=== PATIENT | male | born 1965 | race Caucasian/White ===

== ENCOUNTER 2016-07-17 20:01 | Emergency (ER) | payer OTHER ==
[2016-07-17 20:04] VITALS: BP 134/76
--- NOTE | 2016-07-17 20:54 | RAD ---
INDICATION: Right ankle injury. TECHNIQUE: 3 views of the right ankle were obtained. FINDINGS: Soft tissue swelling is noted along the anterolateral aspect of the ankle. No fracture is seen. Joint spaces appear maintained. IMPRESSION: SOFT TISSUE SWELLING, NO FRACTURE IS SEEN.
--- NOTE | 2016-07-17 21:01 | ED ---
Lower Extremity - HPI Summary HPI Summary: 50M presents with right ankle injury. He states he was shoveling on a hill when he twisted his ankle. He has pain over the lateral aspect of his ankle with some edema. He denies any numbness or tingling. He denies any previous injury to the area. He was able to ambulate afterwards. - History of Current Complaint Chief Complaint: EDExtremityLower Stated Complaint: ANKLE INJURY Time Seen by Provider: 07/17/16 20:14 Pain Intensity: 9 - Allergies/Home Medications Allergies/Adverse Reactions: Allergies Allergy/AdvReac Type Severity Reaction Status Date / Time Shellfish Allergy Allergy Severe VIOLENTLY Verified 07/17/16 20:02 ILL Bee Venom Allergy Anaphylatic Verified 07/17/16 20:02 Shock PMH/Surg Hx/FS Hx/Imm Hx Endocrine/Hematology History: Denies: Hx Diabetes, Hx Thyroid Disease Cardiovascular History: Reports: Hx Hypercholesterolemia, Hx Hypertension Denies: Hx Coronary Artery Disease, Hx Myocardial Infarction, Hx Valvular Heart Disease Respiratory History: Reports: Hx Asthma, Hx Sleep Apnea - evaluation for 04/2013 , Other Respiratory Problems/Disorders - current smoker Denies: Hx Chronic Obstructive Pulmonary Disease (COPD) GI History: Denies: Hx Ulcer Musculoskeletal History: Reports: Other Musculoskeletal History - recent onset generalized muscle pain Psychiatric History: Reports: Hx Anxiety, Hx Depression Denies: Hx of Violent Episodes Against Others - Surgical History Surgery Procedure, Year, and Place: APPENDECTOMY - Immunization History Date of Tetanus Vaccine: in last couple years Infectious Disease History: No Infectious Disease History: Denies: Hx Hepatitis, Hx Human Immunodeficiency Virus (HIV), Traveled Outside the [place] in Last 30 Days - Family History Known Family History: Positive: None, Hypertension Family History: R & n/C - Social History Alcohol Use: Occasionally Substance Use Type: Reports: None Hx Tobacco Use: Yes Smoking Status (MU): Heavy Every Day Tobacco Smoker Type: Cigarettes Amount Used/How Often: 1ppd Review of Systems Negative: Fever Negative: Chest Pain Negative: Shortness Of Breath Positive: Myalgia - right ankle pain All Other Systems Reviewed And Are Negative: Yes Physical Exam Triage Information Reviewed: Yes Vital Signs On Initial Exam: Initial Vitals Temp Pulse Resp BP Pulse Ox 97.5 F 80 18 134/76 98 07/17/16 20:02 07/17/16 20:02 07/17/16 20:02 07/17/16 20:02 07/17/16 20:02 Vital Signs Reviewed: Yes Appearance: Positive: Well-Appearing Skin: Positive: Warm, Dry Head/Face: Positive: Normal Head/Face Inspection Eyes: Positive: Normal, Conjunctiva Clear Respiratory/Lung Sounds: Positive: Clear to Auscultation, Breath Sounds Present Cardiovascular: Positive: Normal, RRR Musculoskeletal: Positive: Other - tenderness over lateral aspect of right ankle , good pulses, capillary refill < 2secs, Diagnostics - Vital Signs Vital Signs Temp Pulse Resp BP Pulse Ox 07/17/16 20:02 97.5 F 80 18 134/76 98 - Laboratory Lab Statement: Any lab studies that have been ordered have been reviewed, and results considered in the medical decision making process. - Radiology ankle Xray Interpretation: No Acute Changes - IMPRESSION: SOFT TISSUE SWELLING, NO FRACTURE IS SEEN. Radiology Interpretation Completed By: Radiologist Lower Extremity Course/Dx - Course Course Of Treatment: 50M presents with right ankle pain s/p twisting his ankle today. was able to ambulate. on exam has tender over lateral aspect of ankle. xray show no fx but some soft tissue swelling. will treat as sprain, placed robby on area. patient did not want crutches. patient understands and agrees with plan - Diagnoses Differential Diagnosis/HQI/PQRI: Positive: Fracture (Closed), Sprain, Strain Provider Diagnoses: Right ankle pain Discharge - Discharge Plan Condition: Good Disposition: HOME Patient Education Materials: Ankle Sprain (ED) Referrals: Mis SOUSA,Cely Parker [Primary Care Provider] - Additional Instructions: Stay off ankle as possible as possible Ice, elevate, keep in ROBBY Ibuprofen every 6 hours for pain Follow up with primary if no improvement Return to ED if develop any numbness or tingling or any new or worsening symptoms
== END 2016-07-17 21:17 | disposition home or self-care (01) ==
LOC: ED 20:01
DX: M25.571 Pain in right ankle and joints of right foot (principal); F17.210 Nicotine dependence, cigarettes, uncomplicated
CPT/HCPCS: 99282

== ENCOUNTER 2016-08-09 05:23 | Emergency (ER) | payer OTHER ==
[2016-08-09] MEDS ORDERED: Ibuprofen TAB* 600 MG PO ONE (06:10)
[2016-08-09] MEDS ORDERED: Ibuprofen TAB* 600 MG ONE (06:12)
[2016-08-09 08:12] VITALS: BP 132/79
--- NOTE | 2016-08-09 08:13 | RAD ---
Indication: Left ankle pain. 3 views of left ankle demonstrates no fracture. Fragmentation of the distal fibula is noted. This is likely due to accessory ossicle or sequela from prior injury. There is a fracture of the base of the fifth metatarsal that is nondisplaced. IMPRESSION: Soft tissue swelling laterally with fragmentation of the distal fibula likely due to old injury. There is suggestion of a nondisplaced fracture of the base of the fifth metatarsal.
--- NOTE | 2016-08-09 08:14 | RAD ---
Indication: Foot pain. 3 views of the foot demonstrates fracture at the base of the fifth metatarsal. No significant displacement is noted. Degenerative changes of the cuneiforms metatarsal joint is noted. IMPRESSION: Nondisplaced fracture base of the fifth metatarsal.
--- NOTE | 2016-08-09 17:34 | ED ---
Natan Armas Billy, scribed for Heraclio Rios MD on 08/09/16 at 0743 . Lower Extremity - HPI Summary HPI Summary: Patient is a 50 year-old male coming to [facility] for evaluation of left foot and ankle pain after a simple mechanical fall this morning at approximately 0415. He states that he was walking down some stairs when he missed the bottom step, although he is unclear as to the exact mechanism of injury (ie, rolled, twisted , bent, etc). Severity of the pain is 10/10. Pain is worse with weightbearing. He denies any head injury or LOC. Denies pain in the hip or knee. Denies any significant prior injuries to the left ankle. - History of Current Complaint Chief Complaint: EDExtremityLower Stated Complaint: LT FOOT INJURY Time Seen by Provider: 08/09/16 07:20 Hx Obtained From: Patient Mechanism Of Injury: Fall From Height Of: - bottom step Onset of Pain: Immediate Severity Initially: Moderate Severity Currently: Moderate Pain Intensity: 10 Pain Scale Used: 0-10 Numeric Timing: Constant Location: Is Discrete @ - left foot Aggravating Factor(s): Weight Bearing Alleviating Factor(s): Rest - Allergies/Home Medications Allergies/Adverse Reactions: Allergies Allergy/AdvReac Type Severity Reaction Status Date / Time Shellfish Allergy Allergy Severe VIOLENTLY Verified 08/09/16 05:28 ILL Bee Venom Allergy Anaphylatic Verified 08/09/16 05:28 Shock PMH/Surg Hx/FS Hx/Imm Hx Endocrine/Hematology History: Denies: Hx Diabetes, Hx Thyroid Disease Cardiovascular History: Reports: Hx Hypercholesterolemia, Hx Hypertension Denies: Hx Coronary Artery Disease, Hx Myocardial Infarction, Hx Valvular Heart Disease Respiratory History: Reports: Hx Asthma, Hx Sleep Apnea - evaluation for 04/2013 , Other Respiratory Problems/Disorders - current smoker Denies: Hx Chronic Obstructive Pulmonary Disease (COPD) GI History: Denies: Hx Ulcer Musculoskeletal History: Reports: Other Musculoskeletal History - recent onset generalized muscle pain Psychiatric History: Reports: Hx Anxiety, Hx Depression Denies: Hx of Violent Episodes Against Others - Surgical History Surgery Procedure, Year, and Place: APPENDECTOMY - Immunization History Date of Tetanus Vaccine: in last couple years Infectious Disease History: No Infectious Disease History: Denies: Hx Hepatitis, Hx Human Immunodeficiency Virus (HIV), Traveled Outside the [place] in Last 30 Days - Family History Known Family History: Positive: Hypertension - Social History Alcohol Use: Weekly Alcohol Amount: 4 days per week, 2-3 each day Substance Use Type: Reports: None Hx Tobacco Use: Yes Smoking Status (MU): Heavy Every Day Tobacco Smoker Type: Cigarettes Amount Used/How Often: 1ppd Review of Systems Negative: Fever Positive: Arthralgia All Other Systems Reviewed And Are Negative: Yes Physical Exam - Summary Physical Exam Summary: The patient is well-nourished in no acute distress and in no acute pain. The skin is warm and dry and skin color reflects adequate perfusion. HEENT: The head is normocephalic and atraumatic. The pupils are equal and reactive. The conjunctivae are clear and without drainage. Nares are patent and without drainage. Mouth reveals moist mucous membranes and the throat is without erythema and exudate. The external ears are intact. The ear canals are patent and without drainage. The tympanic membranes are intact. Neck is supple with full range of motion and non-tender. There are no carotid bruits. There is no neck vein distension. Respiratory: Chest is non-tender. Lungs are clear to auscultation and breath sounds are symmetrical and equal. Cardiovascular: Heart is regular rate and rhythm. There is no murmur or rub auscultated. There is no peripheral edema and pulses are symmetrical and equal. Musculoskeletal: There is no back pain noted. There is tenderness as well as marked swelling and ecchymosis to the base of the fifth metatarsal. No crepitus. The skin is intact. There is no pain in the knees or ankles. There is good capillary refill. There is no peripheral edema or calf tenderness elicited. Neurological: Patient is alert and oriented to person, place and time. The patient has symmetrical motor strength in all four extremities. Cranial nerves are grossly intact. Deep tendon reflexes are symmetrical and equal in all four extremities. Psychiatric: The patient has an appropriate affect and does not exhibit any anxiety or depression. Triage Information Reviewed: Yes Vital Signs On Initial Exam: Initial Vitals Temp Pulse Resp BP Pulse Ox 97.5 F 86 16 135/73 97 08/09/16 05:25 08/09/16 05:25 08/09/16 05:25 08/09/16 05:25 08/09/16 05:25 Vital Signs Reviewed: Yes Procedures - Procedure Summary Procedure Summary: 4 inch x 22 inch OCL posterior splint was applied to the left leg. Pulses strong and intact. Diagnostics - Vital Signs Vital Signs Temp Pulse Resp BP Pulse Ox 08/09/16 07:24 82 95 08/09/16 07:23 121/105 08/09/16 05:36 98.4 F 88 16 125/75 97 08/09/16 05:25 97.5 F 86 16 135/73 97 - Laboratory Lab Statement: Any lab studies that have been ordered have been reviewed, and results considered in the medical decision making process. - Radiology Foot x-ray Radiology Interpretation Completed By: ED Physician - There is a non-displaced fracture of the proximal fifth metatarsal on the left foot. There is also an old avulsion fracture on the lateral malleolus. Ankle x-ray Radiology Interpretation Completed By: ED Physician - There is a non-displaced fracture of the proximal fifth metatarsal on the left foot. There is also an old avulsion fracture on the lateral malleolus. Lower Extremity Course/Dx - Course Assessment/Plan: Patient is a 50 year-old male coming to [facility] for evaluation of left foot pain. In the ED course, the patient was given motrin for pain management. X-rays of the foot and ankle show a non-displaced fracture of the proximal fifth metatarsal on the left foot. There is also an old avulsion fracture on the lateral malleolus, but he is nontender there on physical exam. He was placed in a posterior splint. He will be discharged home with a prescription for Percocet, and he will follow up with his primary care physician. He was also given a referral to orthopedics for further follow up care. - Diagnoses Provider Diagnoses: fracture proximal fifth left metatarsal Discharge - Discharge Plan Condition: Stable Disposition: HOME Prescriptions: oxyCODONE/Acetamin 5/325 MG* [Percocet 5/325 TAB*] 1 tab PO Q6H PRN #20 tab MDD 4 PRN Reason: pain Patient Education Materials: Arthralgia (ED) Referrals: Cely Johnson [Primary Care Provider] - Nathan Whitmore MD [Medical Doctor] - Additional Instructions: NO WEIGHTBEARING. APPLY ICE AND ELEVATE. FOLLOW UP WITH YOUR PRIMARY CARE PHYSICIAN [facility], DR. WHITMORE. The documentation as recorded by the Natan charles Billy accurately reflects the service I personally performed and the decisions made by me, Heraclio Rios MD.
== END 2016-08-09 08:12 | disposition home or self-care (01) ==
LOC: ED 05:23
DX: S92.352A Displaced fracture of fifth metatarsal bone, left foot, initial encounter for closed fracture (principal); W19.XXXA Unspecified fall, initial encounter; Y92.9 Unspecified place or not applicable; F17.210 Nicotine dependence, cigarettes, uncomplicated; I10 Essential (primary) hypertension; E78.00 Pure hypercholesterolemia, unspecified
CPT/HCPCS: 99283; A9270-GY

== ENCOUNTER 2017-04-22 16:14 | Emergency (ER) | payer OTHER ==
--- OUTSIDE RECORDS SUMMARY | 2017-04-22 16:22 | XMS REPORT ---
:1965 External Reference #:[id number] Author Organization [facility] Address [address] [place] [address] Phone [phone] Care Team Providers Name Role Phone HCP given Primary Care Physician Unavailable Payers Type Date Identification Numbers Payment Provider Subscriber Commercial Effective: Policy Number: [id number] [facility] Jerod Nathan Ruiz 2015 Pauline PayID: [id number] [address] [place] [address] Problems Date Description Provider Status Onset: 11/16/2015 Anxiety state Mis, Cely, PA Active Onset: 11/16/2015 Hyperlipidemia Cely Abebe, PA Active Onset: 11/16/2015 Major depressive disorder Cely Abebe, PA Active Onset: 12/20/2015 Peptic reflux disease Rolf Abebeli, PA Active Onset: 12/20/2015 Essential hypertension Cely Abebe, PA Active Onset: 03/28/2016 Pulmonary hypertension Rolf Abebeli, PA Active Onset: 09/05/2016 Mild alcohol dependence Hektor, Cely, PA Active Onset: 11/06/2016 Sleep apnea Hektor, Cely, PA Active Onset: 01/02/2017 Familial hypercholesterolemia Cely Abebe, PA Active Family History Date Family Member(s) Problem(s) Comments Father Blood Clots brain Father Stroke Father Avm Mother AR Mother Stroke First Brother HIV First Brother Hypercholesterolemia Second Brother AR at age 54 Second Brother Hypercholesterolemia Social History Type Date Description Comments Education High School Completed Education Trade School Marital Status Significant Other Lives With Female Partner Work Status Not Currently Working Hand Dominance Right-handed Cigarette Use 03/18/2017 Heavy tobacco smoker (more cutting down per pt than 10 cigarettes/day) ETOH Use 03/18/2017 Current Alcohol Use: Daily cutting down, minimal use per patient as of 03/18/17 Recreational Drug Use Marijuana Smoking Patient is a current smoker, smokes every day Recreational Drug Use Has Used Illegal Drugs In The Past Exercise Type/Frequency Exercises sporadically Sun Exposure Uses sunscreen Seat Belt/Car Seat Seat Belt Use - Yes Guns in Home No Smoke Alarms Yes smoke alarm Currently Active Patient is currently sexually active Additional Info Sexual Partners >10 Allergies, Adverse Reactions, Alerts Date Description Reaction Status Severity Comments 11/16/2015 NKDA active 11/16/2015 Bee Sting Anaphylaxis active Severe 09/05/2016 Shellfish-Derived Products active hives Medications Medication Date Status Form Strength Qnty SIG Indications Ordering Provider Benzonatate 03/18/ Active Capsules 200mg 30cap 1 cap by R05 Norm, 2017 s mouth three Konrad, times a day M.D. as needed cough Ventolin HFA 03/04/ Active Aerosol 108(90Bas 18gm 2 puffs q4-6 R06.02 Norm, 2017 e) hours as Konrad, mcg/Act needed for M.D. shortness of breath Alprazolam 01/08/ Active Tablets 1mg 60tab 1/2 tab by F41.9 Norm, 2016 s mouth three Konrad, times a day M.D. and at bedtime as needed for anxiety/kiara c Fluticasone 01/07/ Active Suspension 50mcg/Act 48gm 2 sprays in J30.9 Silcoff, Propionate 2016 each nostril Konrad, daily as M.D. needed for nasal congestion Bupropion HCL 04/11/ Active Tablets ER 150mg 60tab 1 by mouth Silcoff, ER (SR) 2016 12HR s twice a day Jeannette Silvestre Losartan 02/05/ Active Tablets 100-25mg 30tab 1 tab by I10 Silcoff, Potassium/Hydr 2015 s mouth every Konrad, ochlorothiazid day M.D. e Vitamin D3 11/14/ Active Tablets 1000Unit 1 by mouth Unknown 2016 every day Josseline 11/14/ Active Tablets 180mg 1 by mouth Unknown Allergy 2015 every day for allergies Venlafaxine 11/01/ Active Tablets 100mg 60tab 1 by mouth Silcoff, HCL 2016 s twice daily Jeannette Silvestre Amlodipine 10/26/ Active Tablets 10mg 30tab take one Silcoff, Besylate 2015 s tablet by Konrad mouth every M.D. day for high blood pressure Omeprazole / Active Capsules DR 20mg 60cap 1 cap by K21.0 Mis, 0000 s mouth twice LATRELL Ta a day Atorvastatin 01/27/ Hx Tablets 40mg 30tab 1 by mouth E78.5 Silcoff, Calcium 2016 - s every day Konrad 02/18/ for high M.D. 2017 cholesterol Rosuvastatin 01/07/ Hx Tablets 20mg 30tab 1 tab po E78.5 Silcoff, Calcium 2016 - s daily for Konrad, 01/27/ cholesterol M.D. 2017 Ezetimibe 01/07/ Hx Tablets 10mg 30tab 1 tab po E78.5 Silcoff, 2017 - s daily for Konrad, 01/27/ cholesterol M.D. 2017 Viagra 06/11/ Hx Tablets 100mg 10tab 1 tab by Mis 2017 - s mouth as LATRELL Ta 06/11/ needed prior 2017 to intercourse Losartan 12/19/ Hx Tablets 100mg 30tab 1 tab po Bernabetor, Potassium 2015 - s daily LATRELL Ta 2015 Omeprazole 12/19/ Hx Capsules DR 20mg 30cap 1 cap by K21.0 Mis 2016 - s mouth every LATRELL Ta 02/05/ day 2016 Repatha 11/14/ Hx Solution 140mg/ml 2ml inject every E78.5 Ariel Abebe 2015 - Auto-Inject 2 weeks LATRELL Ta 2016 Lisinopril 10/27/ Hx Tablets 10mg 1 tablet po Unknown 2016 - daily 2015 Alprazolam 09/27/ Hx Tablets 0.5mg 120ta 1 tablet by F41.9 Norm 2015 - bs mouth three Konrad 01/08/ times a day M.D. 2016 and at bedtime as needed Immunizations CPT Code Status Date Vaccine Lot # [id number] Given 01/07/2017 Influenza Virus Vaccine, Quadrivalent, Split, Preservative Free 51204 Given 01/07/2017 Influenza Virus Vaccine, Quadrivalent, Split, [id number] Preservative Free 09977 Given 12/20/2015 Influenza Virus Vaccine, Quadrivalent, Split, [id number] Preservative Free Vital Signs Date Vital Result Comment 03/18/2017 BP Systolic 124 mmHg BP Diastolic 62 mmHg Weight 246.00 lb 03/04/2017 BP Systolic 135 mmHg BP Diastolic 67 mmHg Heart Rate 90 /min O2 % BldC Oximetry 97 % Body Temperature 98.1 F Weight 242.00 lb w/shoes and coat 01/07/2017 BP Systolic 120 mmHg BP Diastolic 80 mmHg Height 73 inches 6'1" w/shoes Weight 238.00 lb w/shoes BMI (Body Mass Index) 31.4 kg/m2 09/05/2016 BP Systolic 120 mmHg Lrg cuff BP Diastolic 72 mmHg Lrg cuff 06/05/2016 BP Systolic 112 mmHg BP Diastolic 70 mmHg 02/06/2016 BP Systolic 168 mmHg BP Diastolic 84 mmHg Weight 207.50 lb 12/20/2015 BP Systolic 142 mmHg BP Diastolic 90 mmHg Body Temperature 98.2 F Weight 198.00 lb 11/16/2015 BP Systolic 140 mmHg BP Diastolic 74 mmHg Height 72 inches 6'0" Weight 193.00 lb BMI (Body Mass Index) 26.2 kg/m2 Results Test Date Test Result H/L Range Note Comp Metabolic Panel 03/13/2017 Sodium 136 mmol/L 133-145 Potassium 4.1 mmol/L 3.5-5.0 Chloride 100 mmol/L Low 101-111 Co2 Carbon Dioxide 28 mmol/L 22-32 Anion Gap 8 mmol/L 2-11 Glucose 105 mg/dL High 70-100 Blood Urea Nitrogen 13 mg/dL 6-24 Creatinine 0.87 mg/dL 0.67-1.17 BUN/Creatinine Ratio 14.9 8-20 Calcium 9.8 mg/dL 8.6-10.3 Total Protein 7.2 g/dL 6.4-8.9 Albumin 4.4 g/dL 3.2-5.2 Globulin 2.8 g/dL 2-4 Albumin/Globulin Ratio 1.6 1-3 Total Bilirubin 0.60 mg/dL 0.2-1.0 Alkaline Phosphatase 91 U/L 34-104 Alt 85 U/L High 7-52 Ast 56 U/L High 13-39 Egfr Non- 93.3 >60 Egfr 119.9 >60 1 CBC Auto Diff 03/13/2017 White Blood Count 9.7 10^3/uL 3.5-10.8 Red Blood Count 5.16 10^6/uL 4.0-5.4 Hemoglobin 15.9 g/dL 14.0-18.0 Hematocrit 47 % 42-52 Mean Corpuscular Volume 91 fL 80-94 Mean Corpuscular Hemoglobin 31 pg 27-31 Mean Corpuscular HGB Conc 34 g/dL 31-36 Red Cell Distribution Width 14 % 10.5-15 Platelet Count 283 10^3/uL 150-450 Mean Platelet Volume 9 um3 7.4-10.4 Abs Neutrophils 7.1 10^3/uL 1.5-7.7 Abs Lymphocytes 1.8 10^3/uL 1.0-4.8 Abs Monocytes 0.7 10^3/uL 0-0.8 Abs Eosinophils 0 10^3/uL 0-0.6 Abs Basophils 0.1 10^3/uL 0-0.2 Abs Nucleated RBC 0.01 10^3/uL Granulocyte % 72.4 % 38-83 Lymphocyte % 18.9 % Low 25-47 Monocyte % 7.2 % 1-9 Eosinophil % 0.5 % 0-6 Basophil % 1.0 % 0-2 Nucleated Red Blood Cells % 0.1 Laboratory test finding 03/13/2017 Vitamin B12 546 pg/mL 180-914 2 Vitamin D Total 25(Oh) 31.1 ng/mL 20-50 TSH (Thyroid Stim Horm) 1.94 mcIU/mL 0.34-5.60 Apolipoprotein Profile 01/01/2017 Apo A1 128 mg/dL >=120 Apo B 198 mg/dL 3 Apo B/A1 ratio 1.5 4 Laboratory test finding 01/01/2017 Lipoprotein Profile Apo a 68 mg/dL & lt;=30 5 Comp Metabolic Panel 01/01/2017 Sodium 136 mmol/L 133-145 Potassium 4.0 mmol/L 3.5-5.0 Chloride 101 mmol/L 101-111 Co2 Carbon Dioxide 27 mmol/L 22-32 Anion Gap 8 mmol/L 2-11 Glucose 111 mg/dL High 70-100 Blood Urea Nitrogen 14 mg/dL 6-24 Creatinine 0.87 mg/dL 0.67-1.17 BUN/Creatinine Ratio 16.1 8-20 Calcium 9.1 mg/dL 8.6-10.3 Total Protein 6.7 g/dL 6.4-8.9 Albumin 4.2 g/dL 3.2-5.2 Globulin 2.5 g/dL 2-4 Albumin/Globulin Ratio 1.7 1-3 Total Bilirubin 0.70 mg/dL 0.2-1.0 Alkaline Phosphatase 93 U/L 34-104 Alt 73 U/L High 7-52 Ast 44 U/L High 13-39 Egfr Non- 93.3 >60 Egfr 119.9 >60 6 Lipid Profile (Trig/Chol/HDL) 01/01/2017 Triglycerides 241 mg/dL 7 Cholesterol 299 mg/dL 8 HDL Cholesterol 38.9 mg/dL 9 LDL Cholesterol 212 mg/dL 10 Laboratory test finding 01/01/2017 Miscellaneous Test See Comment 11 Comp Metabolic Panel 12/21/2015 Sodium 135 mmol/L 133-145 Potassium 4.6 mmol/L 3.5-5.0 Chloride 102 mmol/L 101-111 Co2 Carbon Dioxide 25 mmol/L 22-32 Anion Gap 8 mmol/L 2-11 Glucose 93 mg/dL 70-100 Blood Urea Nitrogen 13 mg/dL 6-24 Creatinine 0.79 mg/dL 0.67-1.17 BUN/Creatinine Ratio 16.5 8-20 Calcium 9.7 mg/dL 8.6-10.3 Total Protein 6.8 g/dL 6.4-8.9 Albumin 4.4 g/dL 3.2-5.2 Globulin 2.4 g/dL 2-4 Albumin/Globulin Ratio 1.8 1-3 Total Bilirubin 0.70 mg/dL 0.2-1.0 Alkaline Phosphatase 82 U/L 34-104 Alt 74 U/L High 7-52 Ast 45 U/L High 13-39 Egfr Non- 104.7 >60 Egfr 134.6 >60 12 Lipid Profile (Trig/Chol/HDL) 12/21/2015 Triglycerides 222 mg/dL 13 Cholesterol 253 mg/dL 14 HDL Cholesterol 41.0 mg/dL 15 LDL Cholesterol 168 mg/dL 16 1 Because ethnic data is not always readily available, this report includes an eGFR for both -Americans and non- Americans. The National Kidney Disease Education Program (NKDEP) does not endorse the use of the MDRD equation for patients that are not between the ages of 18 and 70, are , have extremes of body size, muscle mass, or nutritional status, or are non- or non-. According to the National Kidney Foundation, irrespective of diagnosis, the stage of the disease is based on the level of kidney function: Stage Description GFR(mL/min/1.73 m(2)) 1 Kidney damage with normal or decreased GFR 90 2 Kidney damage with mild decrease in GFR 60-89 3 Moderate decrease in GFR 30-59 4 Severe decrease in GFR 15-29 5 Kidney failure <15 (or dialysis) 2 Normal Range 180 to 914 Indeterminate Range 145 to 180 Deficient Range <145 3 REFERENCE VALUE Desirable: <90 Above Desirable: 90-99 Borderline high: 100-119 High: 120-139 Very high: > cu=265 4 REFERENCE VALUE Lower Risk: <0.7 Average Risk: 0.7-0.9 Higher Risk: >0.9 Test Performed by: [place] [address] 5 Elevated Lp(a). Lp(a) is prothrombotic and proatherogenic. Lp(a) expression is primarily genetically driven and is minimally altered by therapeutic lifestyle changes. Patients with large isoforms of Lp(a) may have elevated Lp(a) protein concentrations without increased risk. Measurement of Lp(a) cholesterol (test LPAWS/Lp(a) Cholesterol,S) may better facilitate cardiovascular risk assessment, since it is not influenced by isoform size. The National Lipid Association, the Atherosclerosis Society, and NCEP/ATPIII consider elevated Lp(a) an optional indicator for atherosclerotic cardiovascular disease risk refinement. Test Performed by: [place] [id number] 6 Because ethnic data is not always readily available, this report includes an eGFR for both -Americans and non- Americans. The National Kidney Disease Education Program (NKDEP) does not endorse the use of the MDRD equation for patients that are not between the ages of 18 and 70, are , have extremes of body size, muscle mass, or nutritional status, or are non- or non-. According to the National Kidney Foundation, irrespective of diagnosis, the stage of the disease is based on the level of kidney function: Stage Description GFR(mL/min/1.73 m(2)) 1 Kidney damage with normal or decreased GFR 90 2 Kidney damage with mild decrease in GFR 60-89 3 Moderate decrease in GFR 30-59 4 Severe decrease in GFR 15-29 5 Kidney failure <15 (or dialysis) 7 Desirable: <150 Borderline High: 150-199 High: 200-499 Very High: >500 8 Desirable: <200 Borderline High: 200-239 High: >239 9 Low: <40 Desirable: 40-60 High: >60 10 Desirable: <100 Near Optimal: 100-129 Borderline High: 130-159 High: 160-189 Very High: >189 11 Test Result Flag Unit RefValue LDLR Large Del/Dup Interp See Comment RESULT SUMMARY: LDLR Large Deletion/Duplication Result: Negative INTERPRETATION: A genetic cause for elevated LDL cholesterol was not detected by large deletion/duplication analysis of the LDLR gene via MLPA. This patient previously underwent LDLR gene sequencing which was also negative (Order [id number], reported 01/08/2017). These results decrease the likelihood of, but do not rule out, the presence of a pathogenic variant in the LDLR gene. Some affected individuals with features of familial hypercholesterolemia (FH) may have a pathogenic variant in LDLR that is not detectable by the methods utilized. Additionally, the clinical phenotype that is observed in this individual and/or family may be due to a pathogenic variant in another gene, such as APOB or PCSK9. This result should be interpreted in the context of clinical findings, family history, and other laboratory testing. Consultation with a genetics professional may be beneficial for interpretation of this result. ADDITIONAL INFORMATION Large deletion/duplication analysis of a portion of the promoter and all 18 exons of the LDLR gene (GenBank number [id number]) was performed via multiplex ligation-dependent probe amplification (a PCR-based method). A genetic consultation may be of benefit. CAUTIONS: Rare variants may be present that could lead to false negative or positive results. If results obtained do not match the clinical findings, additional testing should be considered. Test results should be interpreted in the context of clinical findings, family history, and other laboratory data. Misinterpretation of results may occur if the information provided is inaccurate or incomplete. Samples may contain donor DNA if obtained from patients who received heterologous blood transfusions or allogeneic blood or marrow transplantation. Results from samples obtained under these circumstances may not accurately reflect the recipient's genotype. For individuals who have received blood transfusions, the genotype usually reverts to that of the recipient within 6 weeks. For individuals who have received allogeneic blood or marrow transplantation, a pre-transplant DNA specimen is recommended for testing. This test was developed and its performance characteristics determined by [facility] in a manner consistent with CLIA requirements. This test has not been cleared or approved by the U.S. Food and Drug Administration. Reviewed By See Comment RESULT: Ashley Torres, Ph.D. Result See Comment A large deletion/duplication variant was not detected in LDLR. Test Performed by: [address] [id number] Because ethnic data is not always readily available, this report includes an eGFR for both -Americans and non- Americans. The National Kidney Disease Education Program (NKDEP) does not endorse the use of the MDRD equation for patients that are not between the ages of 18 and 70, are , have extremes of body size, muscle mass, or nutritional status, or are non- or non-. According to the National Kidney Foundation, irrespective of diagnosis, the stage of the disease is based on the level of kidney function: Stage Description GFR(mL/min/1.73 m(2)) 1 Kidney damage with normal or decreased GFR 90 2 Kidney damage with mild decrease in GFR 60-89 3 Moderate decrease in GFR 30-59 4 Severe decrease in GFR 15-29 5 Kidney failure <15 (or dialysis) 13 Desirable <150 Borderline high 150-199 High 200-499 Very High >500 14 Desirable <200 Borderline high 200-239 High >239 15 Low <40 Desirable: 40-60 High: >60 16 Desirable: <100 mg/dL Near Optimal: 100-129 mg/dL Borderline High: 130-159 mg/dL High: 160-189 mg/dL Very High: >189 mg/dL Procedures Date CPT Code Description Status 03/18/2017 37850 Bronchospasm Evaluation Pre & Post Completed Encounters Type Date Location Provider CPT E/M Dx Office Visit 03/18/2017 2:50p [place] [address] R06.02 R05 F41.9 F10.20 F17.210 R59.0 I10 Office Visit 03/04/2017 4:30p [place] [address] R06.02 G47.30 F17.210 F10.20 F41.9 I10 R59.0 Office Visit 01/07/2017 11:05a [place] [address] F41.9 F10.20 E78.5 I10 J30.9 F17.210 G47.30 Z23 Office Visit 09/05/2016 8:45a [place] [address] F41.9 F10.20 G56.22 S92.355D Office Visit 06/05/2016 1:00p [place] [address] F41.9 E78.5 I10 F32.9 R06.02 G47.30 Office Visit 02/06/2016 9:45a [place] [address] F41.9 K21.0 I10 Z82.49 E78.5 Office Visit 12/20/2015 11:40a [place] [address] F41.9 R13.10 K21.0 I10 Z23 Z41.8 Office Visit 11/16/2015 3:55p [place] [address] F41.9 F32.9 S91.312S E78.5 Plan of Care 03/18/2017 - Cely Abebe, PAR06.02 Shortness of breathComments:Spirometry today showed only mild restriction, no significant change post-bronchodilator. Pt feels ventolin helps a little, he will continue to use it prn. Cardiac w/u and prior pulmonary w/u were negative. Waiting on insurance auth for chest CT. Discussed importance of smoking cessation. Monitor closely.Follow up:f/u after chest CT to discuss [id number] CoughNew Medication:Benzonatate 200 mgComments: See #1. Will trial tessalon prn cough.F41.9 Anxiety disorder, unspecifiedComments:Discussed current stressors. Ongoing depression and anxiety with intermittent panic attacks. Continue effexor and prn xanax. Continue seeing counselor regularly. Pt states his counselor will be contacting me soon to discuss his case, he will sign release today and states "you can talk to her about anything".F10.20 Alcohol dependence, uncomplicatedComments:Discussed mildly elevated LFTs. Encouraged pt to continue cutting down and working on complete alcohol cessation.F17.210 Nicotine dependence, cigarettes, uncomplicatedComments:Smoking cessation counseling <10 minutes done today. Pt has cut down significantly, but needs to quit completely.R59.0 Localized enlarged lymph nodesComments:Chest CT for respiratory sx w axillary nodes. See above.I10 Essential (primary) hypertensionComments:Good control on current meds , continue same.
[2017-04-22 17:54] LABS: ABS Basophils 0.2 10^3/ul (0-0.2); ABS Eosinophils 0 10^3/ul (0-0.6); ABS Lymphocytes 2.1 10^3/ul (1.0-4.8); ABS Monocytes 0.9 10^3/ul (0-0.8); ABS Neutrophils 7.6 10^3/ul (1.5-7.7); ABS Nucleated RBC 0 10^3/ul; Eosinophil % 0.4 % (0-6); Hematocrit 44 % (42-52); Hemoglobin 14.9 g/dl (14.0-18.0); Lymphocyte % 19.6 % (25-47); Mean Corpuscular HGB Conc 34 g/dl (31-36); Mean Corpuscular Hemoglobin 30 pg (27-31); Mean Corpuscular Volume 88 fL (80-94); Mean Platelet Volume 8 um3 (7.4-10.4); Nucleated Red Blood Cells % 0; Platelet Count 247 10^3/ul (150-450); Red Blood Count 4.94 10^6/ul (4.0-5.4); Red Cell Distribution Width 14 % (10.5-15); White Blood Count 10.8 10^3/ul (3.5-10.8)
[2017-04-22 18:09] LABS: EGFR Non-African American 88.6 (>60)
--- NOTE | 2017-04-22 18:42 | RAD ---
HISTORY: Cough, dyspnea COMPARISONS: June 18, 2016 VIEWS: 4: Frontal dual-energy and lateral views of the chest. FINDINGS: CARDIOMEDIASTINAL SILHOUETTE: The cardiomediastinal silhouette is normal. DAVID: The david are normal. PLEURA: The costophrenic angles are sharp. No pleural abnormalities are noted. LUNG PARENCHYMA: The lungs are clear. ABDOMEN: The upper abdomen is clear. There is no subphrenic gas. BONES AND SOFT TISSUES: Mild degenerative changes are noted OTHER: None. IMPRESSION: NO ACTIVE CARDIOPULMONARY DISEASE.
[2017-04-22 19:46] VITALS: BP 154/85
--- NOTE | 2017-04-22 19:48 | ED ---
Vernon Armas Stephanie, scribed for Luigi Rodriguez MD on 04/22/17 at 1737 . Shortness of Breath - HPI Summary HPI Summary: The pt is a 51 y/o M presenting to the ED with c/o SOB that began earlier today. Symptoms include sore throat, ear pain and FARRIS. The pt denies N/V/D, fever and chills. The pt reports a history of breathing problems. - History of Current Complaint Chief Complaint: EDShortnessOfBreath Time Seen by Provider: 04/22/17 17:34 Hx Obtained From: Patient Onset/Duration: Gradual Onset, Still Present Timing: Constant Aggrevating Factors: Nothing Alleviating Factors: Nothing Associated Signs & Symptoms: Negative - Allergy/Home Medications Allergies/Adverse Reactions: Allergies Allergy/AdvReac Type Severity Reaction Status Date / Time MS Shellfish Allergy Allergy Severe VIOLENTLY Verified 04/22/17 17:24 [Shellfish Allergy] ILL MS Bee Venom [Bee Venom] Allergy Anaphylatic Verified 04/22/17 17:24 Shock PMH/Surg Hx/FS Hx/Imm Hx Endocrine/Hematology History: Denies: Hx Diabetes, Hx Thyroid Disease Cardiovascular History: Reports: Hx Hypercholesterolemia, Hx Hypertension Denies: Hx Coronary Artery Disease, Hx Myocardial Infarction, Hx Valvular Heart Disease Respiratory History: Reports: Hx Asthma, Hx Sleep Apnea - evaluation for 04/2013 , Other Respiratory Problems/Disorders - current smoker Denies: Hx Chronic Obstructive Pulmonary Disease (COPD) GI History: Denies: Hx Ulcer Musculoskeletal History: Reports: Other Musculoskeletal History - recent onset generalized muscle pain Psychiatric History: Reports: Hx Anxiety, Hx Depression Denies: Hx of Violent Episodes Against Others - Surgical History Surgery Procedure, Year, and Place: APPENDECTOMY - Immunization History Date of Tetanus Vaccine: in last couple years Infectious Disease History: No Infectious Disease History: Denies: Hx Hepatitis, Hx Human Immunodeficiency Virus (HIV), Traveled Outside the [place] in Last 30 Days - Family History Known Family History: Positive: Hypertension Negative: Cardiac Disease, Diabetes Family History: R & n/C - Social History Occupation: Unemployed Lives: With Family Alcohol Use: Weekly Alcohol Amount: 4 days per week, 2-3 each day Substance Use Type: Reports: None Hx Tobacco Use: Yes Smoking Status (MU): Heavy Every Day Tobacco Smoker Type: Cigarettes Amount Used/How Often: 1ppd Review of Systems Negative: Fever, Chills Positive: Sore Throat, Ear Ache Positive: Shortness Of Breath, Cough Negative: Vomiting, Diarrhea, Nausea Positive: Headache All Other Systems Reviewed And Are Negative: Yes Physical Exam - Summary Physical Exam Summary: Appearance: Well-appearing, Well-nourished Skin: Warm, Dry, No rash Eyes: Normal, PERRL, EOMI, sclera anicteric ENT: L TM red Neck: Supple, nontender Respiratory: bilateral ronchi Cardiovascular: S1, S2, no murmur, no rub, no gallop Abdomen: Soft, nontender, no organomegaly Bowel sounds: Present Musculoskeletal: Normal, Strength/ROM Intact, no edema, pulses symmetrical Neurological: Normal, A&Ox3, cranial nerves II-XII WNL, follows commands, gait not tested, sensation intact to pin and light touch Triage Information Reviewed: Yes Vital Signs On Initial Exam: Initial Vitals Temp Pulse Resp BP Pulse Ox 98.3 F 95 20 123/71 97 04/22/17 16:17 04/22/17 16:17 04/22/17 16:17 04/22/17 16:17 04/22/17 16:17 Vital Signs Reviewed: Yes Diagnostics - Vital Signs Vital Signs Temp Pulse Resp BP Pulse Ox 04/22/17 16:17 98.3 F 95 20 123/71 97 - Laboratory Lab Results: Lab Results 04/22/17 Range/Units 16:30 Influenza A (Rapid) Negative (Negative) Influenza B (Rapid) Negative (Negative) Result Diagrams: 04/22/17 17:47 04/22/17 17:47 Lab Statement: Any lab studies that have been ordered have been reviewed, and results considered in the medical decision making process. - Radiology CXR Xray Interpretation: No Acute Changes Radiology Interpretation Completed By: Radiologist - NO ACTIVE CARDIOPULMONARY DISEASE. Course/Dx - Course Course Of Treatment: CXR normal. WBC count nml. Influenza testing was negative. The pt will be discharged. - Diagnoses Provider Diagnoses: Otitis media Discharge - Discharge Plan Condition: Stable Disposition: HOME Patient Education Materials: Ear Infection (ED) Referrals: Mis SOUSA,Cely Parker [Primary Care Provider] - The documentation as recorded by the Vernon charles Stephanie accurately reflects the service I personally performed and the decisions made by , Luigi Rodriguez MD.
== END 2017-04-22 19:45 | disposition home or self-care (01) ==
LOC: ED 16:14
DX: H66.92 Otitis media, unspecified, left ear (principal); E78.00 Pure hypercholesterolemia, unspecified; I10 Essential (primary) hypertension; F17.210 Nicotine dependence, cigarettes, uncomplicated
CPT/HCPCS: 36415; 71046; 80053; 85025; 87502; 99282

== ENCOUNTER 2017-07-10 11:00 | Emergency (ER) | payer OTHER ==
--- OUTSIDE RECORDS SUMMARY | 2017-07-10 11:11 | XMS REPORT ---
:1965 External Reference #:[id number] Author Organization [facility] [place] Address [address] [address] Phone [phone] Care Team Providers Name Role Phone Konrad Zheng MD Primary Care Physician Unavailable Payers Type Date Identification Numbers Payment Provider Subscriber Commercial Effective: Policy Number: [id number] [place] Nathan Ruiz 2014 Group Number: [id number] [address] PayID: [id number] [place] [address] Workers Compensation Onset: 2013 Policy Number: [employer] Nathan Ruiz [id number] [employer] PayID: [id number] [address] [place] [address] Problems Date Description Provider Status Onset: 09/11/2015 Open wound of foot, excluding Love Madrid M.D. Active toe(s) Onset: 09/15/2015 Laceration without foreign Lovelida Madrid M.D. Active body, left foot, subs encntr Onset: 07/24/2016 Sleep apnea Maggy Tijerina DNP, RN, Active HOT DIP PLATING SUPERVISOR-BC Onset: 07/24/2016 Hypersomnia Maggy Tijerina DNP, RN, Active HOT DIP PLATING SUPERVISOR-BC Onset: 09/25/2016 Obstructive sleep apnea Maggy Tijerina DNP, RN, Active syndrome HOT DIP PLATING SUPERVISOR-BC Family History Date Family Member(s) Problem(s) Comments General Diabetes Father blood clots in brain Father due to CAD () Father due to Stroke () Mother due to CAD () Mother due to Stroke () Siblings 3 Siblings 1 , Not Related To Cardiac Disease First Brother Carotid stenting Social History Type Date Description Comments Marital Status Single Lives With Girlfriend Lives With 3 dogs Lives With 1 cat Occupation Unemployed Cigarette Use Former Cigarette Smoker 1 1/2 Packs Daily ETOH Use Drinks 2 Alcoholic Beverages Per Week Recreational Drug Use Former Drug User Smoking Patient is a former smoker 1 1/2 ppd x 33 years. 1/2 pack for 1 year. Recreational Drug Use Former Drug User Not used for 15 plus years Daily Caffeine Consumes on average 3 cups of 3-4 regular coffee per day Daily Caffeine Occasional soda Exercise Type/Frequency Exercises regularly Exercise Type/Frequency Walks daily Limited by foot pain, shortness of breath General Hx Text Do you follow a special diet: regular diet Do you have problems snoring, daytime fatigue: yes snore- witness girlfriend, yes daytime fatigue. Allergies, Adverse Reactions, Alerts Date Description Reaction Status Severity Comments 02/04/2013 NKDA active 09/11/2015 Shellfish-derived Products active 09/11/2015 Bee Sting Anaphylaxis active Medications Medication Date Status Form Strength Qnty SIG Indications Ordering Provider Josseline Allergy / Active Tablet 180mg 1 tab po Unknown 0000 daily Effexor XR / Active Caps ER 100mg 1 by mouth Unknown 0000 24HR bid Vitamin D High / Active Capsules 1000Unit 1 by mouth Unknown Potency 0000 every day Amlodipine / Active Tablets 10mg 1 by mouth Unknown Besylate 0000 every day Alprazolam / Active Tablets 0.5mg 1 tab Unknown 0000 three times a day as needed Omeprazole / Active Capsules 20mg 1 by mouth Unknown 0000 DR twice daily Losartan / Active Tablets 100-25mg 1 by mouth Unknown Potassium/[place] 0000 every day chlorothiazide Bupropion HCL / Active Tablets ER 150mg 1 tablet Lucille-He ER (SR) 0000 12HR po twice ktor, daily LATRELL Carter Albuterol / Active Inhale 1-2 Unknown Sulfate 0000 puffs every 4 hours as needed Mckay Sarabia 08/14/ Hx 1units Use as Nathan 2016 - needed MD Monica 2017 Cephalexin 09/21/ Hx Capsules 500mg 56caps 1 capsule M79.672 Love 2015 - by mouth Julius, 09/08/ every 6 M.D. 2016 hours Silver 09/21/ Hx Cream 1% 400gm apply thin M79.672 Love Sulfadiazine 2015 - layer to Julius, 02/27/ left foot M.D. 2015 twice daily Naproxen 09/10/ Hx Tablets 500mg 60tabs 1 tablet M79.672 Love 2015 - with food Julius, 03/04/ by mouth M.D. 2015 twice a day Norvasc / Hx Unknown - 2015 Hydrocodone/Otoniel / Hx Unknown taminophen - 2015 Repatha / Hx Soln 140mg/ml inject Unknown - Prefill once every 07/23/ Syringe 2 weeks. ( 2016 Pt has stop end of Feb 2016, because no coverage on insurance) Medications Administered in Office Medication Date Status Form Strength Qnty SIG Indications Ordering Provider Celestone 3 mg Administered Injection Mendez and 3mg 012 Jeannette Rios Vital Signs Date Vital Result Comment 06/10/2017 Height 73 inches 6'1" Weight 238.00 lb Heart Rate 82 /min BP Systolic Sitting 118 mmHg Lue large cuff BP Diastolic Sitting 76 mmHg Lue large cuff Respiratory Rate 16 /min O2 % BldC Oximetry 98 % On Ra BMI (Body Mass Index) 31.4 kg/m2 Neck Circumference in inches 19 06/05/2017 Height 73 inches 6'1" Weight 238.31 lb No shoes Heart Rate 88 /min BP Systolic Sitting 124 mmHg Rue lrg cuff BP Diastolic Sitting 74 mmHg Rue lrg cuff Respiratory Rate 18 /min BMI (Body Mass Index) 31.4 kg/m2 Ejection Fraction 55-60% 03/26/2016-echo 03/19/2017 Height 73 inches 6'1" Weight 242.00 lb Heart Rate 68 /min BP Systolic 130 mmHg BP Diastolic 78 mmHg Respiratory Rate 14 /min BMI (Body Mass Index) 31.9 kg/m2 10/11/2016 Height 73 inches 6'1" Weight 220.00 lb Respiratory Rate 18 /min Body Temperature 98.1 F Pain Level 2 BMI (Body Mass Index) 29.0 kg/m2 09/25/2016 Height 73 inches 6'1" Weight 225.00 lb Heart Rate 112 /min BP Systolic Sitting 132 mmHg BP Diastolic Sitting 82 mmHg Respiratory Rate 14 /min O2 % BldC Oximetry 98 % BMI (Body Mass Index) 29.7 kg/m2 09/12/2016 Height 73 inches 6'1" Weight 220.00 lb BP Systolic 128 mmHg BP Diastolic 87 mmHg Body Temperature 97.5 F Pain Level 5 BMI (Body Mass Index) 29.0 kg/m2 08/22/2016 Height 73 inches 6'1" Weight 220.00 lb Heart Rate 93 /min BP Systolic 144 mmHg BP Diastolic 90 mmHg Respiratory Rate 15 /min Body Temperature 97.3 F Pain Level 4 BMI (Body Mass Index) 29.0 kg/m2 08/14/2016 Height 73 inches 6'1" Weight 220.00 lb Heart Rate 100 /min BP Systolic 130 mmHg BP Diastolic 70 mmHg Respiratory Rate 17 /min Body Temperature 98.6 F Pain Level 6 BMI (Body Mass Index) 29.0 kg/m2 07/24/2016 Height 73 inches 6'1" Weight 221.00 lb Heart Rate 85 /min BP Systolic Sitting 120 mmHg BP Diastolic Sitting 64 mmHg Respiratory Rate 16 /min O2 % BldC Oximetry 97 % BMI (Body Mass Index) 29.2 kg/m2 Neck Circumference in inches 18 05/23/2016 Height 73 inches 6'1" Weight 219.00 lb Heart Rate 96 /min BP Systolic Sitting 120 mmHg Lue lg cuff BP Diastolic Sitting 80 mmHg Lue lg cuff BP Systolic Standing 120 mmHg Lue lg cuff BP Diastolic Standing 84 mmHg Lue lg cuff Respiratory Rate 17 /min BMI (Body Mass Index) 28.9 kg/m2 Ejection Fraction 55-60% date 03/26/2016 ECHO 03/05/2016 Height 73 inches 6'1" Weight 210.00 lb w/o shoes Heart Rate 106 /min BP Systolic Sitting 158 mmHg LA lrg cuff BP Diastolic Sitting 94 mmHg LA lrg cuff BMI (Body Mass Index) 27.7 kg/m2 Ejection Fraction 60% echo 09/14/07 11/24/2015 Height 73 inches 6'1" Weight 175.00 lb Pain Level 4 BMI (Body Mass Index) 23.1 kg/m2 10/20/2015 Height 73 inches 6'1" Weight 175.00 lb Body Temperature 97.2 F BMI (Body Mass Index) 23.1 kg/m2 09/29/2015 Height 73 inches 6'1" Weight 175.00 lb Pain Level 0 BMI (Body Mass Index) 23.1 kg/m2 09/22/2015 Height 73 inches 6'1" Weight 175.00 lb Body Temperature 98.0 F Pain Level 3 BMI (Body Mass Index) 23.1 kg/m2 09/15/2015 Height 73 inches 6'1" Weight 175.00 lb Pain Level 4 BMI (Body Mass Index) 23.1 kg/m2 09/11/2015 Height 73 inches 6'1" Weight 175.00 lb BP Systolic 140 mmHg BP Diastolic 90 mmHg Body Temperature 97.8 F BMI (Body Mass Index) 23.1 kg/m2 01/11/2015 Height 73 inches 6'1" Weight 173.00 lb Pain Level 2 BMI (Body Mass Index) 22.8 kg/m2 12/28/2014 Height 73 inches 6'1" Weight 173.00 lb Pain Level 4 BMI (Body Mass Index) 22.8 kg/m2 12/19/2014 Height 73 inches 6'1" Weight 173.00 lb Pain Level 7 BMI (Body Mass Index) 22.8 kg/m2 12/13/2014 Height 73 inches 6'1" Weight 173.00 lb Heart Rate 73 /min BP Systolic 148 mmHg BP Diastolic 95 mmHg BMI (Body Mass Index) 22.8 kg/m2 02/04/2013 Height 73 inches 6'1" Weight 187.00 lb Heart Rate 75 /min BP Systolic 135 mmHg BP Diastolic 91 mmHg BMI (Body Mass Index) 24.7 kg/m2 05/13/2011 Height 73 inches 6'1" Weight 172.00 lb Heart Rate 70 /min BP Systolic 136 mmHg BP Diastolic 87 mmHg BMI (Body Mass Index) 22.7 kg/m2 Results Test Date Test Result H/L Range Note Xray 08/22/2016 Foot Left 3+ VWS <pending> Procedures Date CPT Code Description Status 06/05/2017 57868 EKG Tracing & Interpretation Completed 09/06/2016 53444 Polysomnography Sleep Staging 4+ Parameters W/Cpap Completed 08/14/2016 33961 FX Metatarsal Care Completed 06/18/2016 90469 Plethysmography Determination Lung Volumes & Per Completed Airway Resist 06/18/2016 80290 Pulmonary Function><Bronchodil Completed 04/17/2016 58464 Treadmill Interp/Report Only Completed 04/17/2016 26339 Stress Test Supervsn W/Out I/R Completed 03/26/2016 47348 ECHO Transthoracic, Real-Time 2D With Doppler And Color Completed Flow 03/07/2016 70299 ECHO Stress Test Incl Perf Contiuous ekg Monitoring Completed W/Phys Superv 03/07/2016 44878 ECHO Stress Test Incl Perf Contiuous ekg Monitoring Completed W/Phys Superv 03/05/2016 57126 EKG Tracing & Interpretation Completed 12/28/2014 43758 Short Arm Splint Application Completed 12/19/2014 73653 Short Arm Splint Application Completed 12/13/2014 17711 Closed TX Metacarpal FX Single W/O Manipulation, Ea Completed Bone 10/05/2013 11909 Endo-Trachial Tube Completed 10/04/2013 27787 EKG, Interpretation Only Completed 05/13/2011 49159 Rad Exam; Elbow, Limited Completed 05/13/2011 16869 Inject/Drain Joint/Bursa Intermediate Completed 05/13/201155877 Injection Single Tendon Origin/Insertion Completed 09/14/2007 67695 Color Doppler Completed 09/14/2007 60321 Color Doppler Completed 09/14/2007 81241 Pulse Doppler & Continuous Wave Completed 09/14/2007 47694 Pulse Doppler & Continuous Wave Completed 09/14/2007 33419 Pulse Doppler & Continuous Wave Completed 09/14/2007 48452 Echocardiogram Completed 09/14/2007 26686 Echocardiogram Completed 09/14/2007 88777 Echocardiogram Completed 07/28/2007 12998 Treadmill Interp/Report Only Completed 07/28/2007 02377 Stress Test Supervsn W/Out I/R Completed 07/28/2007 64659 Stress Test Supervsn W/Out I/R Completed Encounters Type Date Location Provider CPT E/M Dx Office Visit 03/19/2017 [facility]gy Tijerina 92602 G47.33 9:45a [facility] RN, AILEEN G47.14 Office Visit 09/25/2016 10:45a [facility] Maggy Tijerina 84747 G47.33 [facility]OK[facility] RN, AILEEN G47.14 F17.210 Office Visit 07/24/2016 1:30p [facility] Maggy Tijerina 94784 R06.83 Services [facility] Kisha STOKES RN, [facility] R35.1 G47.10 G47.8 F41.9 F17.210 Office Visit 05/23/2016 11:20a [facility] Ghassan Viera, 42435 I10 Peanut Shaker M.DRose E78.4 F17.210 E66.9 F15.10 F10.10 Office Visit 03/05/2016 2:30p [facility] Kayden Mcelroy, 42817 I10 M.DRose E78.4 R07.9 R06.02 Z72.0 E66.9 Z82.49 R94.31 Office Visit 11/24/2015 11:30a [facility] [place] M.D. 24173 M79.672 C.M.A. S91.312D Office Visit 10/20/2015 10:00a [facility] [place] M.D. 66663 M79.672 C.M.A. S91.312D Office Visit 09/29/2015 11:30a [facility] aMdrid 49733 S91.312D C.MLou Machado M79.672 W20.8xxD Office Visit 09/22/2015 2:15p [facility] [place] M.D. 46454 M79.672 C.M.A. S91.312D W20.8xxD Office Visit 09/15/2015 11:30a [facility] [place] M.D. 27219 M79.672 C.M.A. S91.312D Office Visit 09/11/2015 10:45a [facility] [place] M.D. 04746 M79.672 C.M.A. S91.312A W20.8xxA Office Visit 10/13/2013 11:56a [facility], Angelika Dunham, 81145 972.6 Hospitalists M.D. 451.89 V62.84 Office Visit 10/12/2013 11:56a [facility], Angelika Dunham, 35099 972.6 Hospitalists M.D. 451.89 V62.84 Office Visit 10/11/2013 11:55a [facility] Lyndon Duckworth M.D. 77049 972.6 Hospitalists 298.9 Office Visit 10/10/2013 11:55a [facility] Lyndon Duckworth M.D. 66784 972.6 Hospitalists 298.9 Office Visit 10/09/2013 11:54a [facility] Lyndon Duckworth M.D. 98879 298.9 Hospitalists 972.6 Office Visit 10/08/2013 11:53a [facility] Jose Angel Keenan, 53154 307.9 Hospitalists D.O. 972.6 780.97 518.81 Office Visit 10/07/2013 11:53a [facility] Jose Angel Keenan, 52771 307.9 Hospitalists D.O. 972.6 518.81 780.97 Office Visit 10/06/2013 11:52a [facility] Sharif Martinez D.O. 70108 307.9 Hospitalists 972.6 V62.84 780.97 Office Visit 10/05/2013 11:46a [facility] Sharif Martinez D.O. 05879 307.9 Hospitalists 972.6 780.97 V62.84 Office Visit 10/04/2013 11:46a [facility] Sharif Martinez D.O. 97367 307.9 Hospitalists 518.81 972.6 V62.84 Office Visit 10/03/2013 11:45a [facility] Sharif Martinez D.O. 18045 799.89 Hospitalists 307.9 972.6 V62.84 Office Visit 10/03/2013 11:44a [facility] [place], [address] 972.6 Assoc, Dolores Machado 780.97 995.90 V62.84 Office Visit 02/04/2013 8:15a [facility] Sharon Cohn, 87023 842.00 Of Drea Machado Office Visit 06/13/2011 9:00a [facility] Mendez Rios M.D. 80701 726.32 Of C.M.ARose Office Visit 05/13/2011 8:30a [facility] Mendez Rios M.D. 79917 726.32 Of C.M.ARose Office Visit 07/28/2007 10:00a [facility] Erlin GeovannyRose Taveras, 13677 786.50 M.DRose 401.1 Plan of Care Future Appointment(s):07/31/2017 11:30 am - Jada Cadena MD at [facility]09/12/2017 9:30 am - Maggy Tijerina DNP, RN, HOT DIP PLATING SUPERVISOR-BC at [facility]06/10/2017 - Jada Cadena, MDR06.02 Shortness of breathNew Labs:Alpha 1 Antitrypsin A1aNew Orders:PFTW/Spirometry Vol Pre/Post Bronchdilat Dlco Complete6 Minute WalkComments:Use Breo and XkngukjR49.891 Personal history of nicotine gkgqfnilbvP14.9 Allergic rhinitis, aqfgsqokdlwG51.09 Other obesity due to excess calories
[2017-07-10] MEDS ORDERED: Metoclopramide IV* 5 MG/ML 2 ML VIAL IV ONE (11:12)
[2017-07-10] MEDS ORDERED: NS 0.9% 1000 ML* 1,000 ML IV ONE (11:12)
[2017-07-10] MEDS ORDERED: Morphine INJ* 10 MG/ML 1 ML CARPUJECT IV ONE (11:12)
[2017-07-10] MEDS ORDERED: diPHENhydraMINE IV* 50 MG/ML 1 ml VIAL (BENADRYL) IV ONE (11:12)
[2017-07-10] MEDS ORDERED: Morphine VIAL* 4 MG/ML VIAL (1 ml vial) IV ONE ×2 (11:23→11:26)
[2017-07-10 11:30] LABS: ABS Basophils 0 10^3/ul (0-0.2); ABS Eosinophils 0.3 10^3/ul (0-0.6); ABS Lymphocytes 3.3 10^3/ul (1.0-4.8); ABS Monocytes 0.9 10^3/ul (0-0.8); ABS Neutrophils 6.8 10^3/ul (1.5-7.7); ABS Nucleated RBC 0 10^3/ul; Eosinophil % 2.3 % (0-6); Hematocrit 44 % (42-52); Hemoglobin 15.5 g/dl (14.0-18.0); Lymphocyte % 29.4 % (25-47); Mean Corpuscular HGB Conc 35 g/dl (31-36); Mean Corpuscular Hemoglobin 30 pg (27-31); Mean Corpuscular Volume 85 fL (80-94); Mean Platelet Volume 7.8 um3 (7.4-10.4); Nucleated Red Blood Cells % 0.1; Platelet Count 301 10^3/ul (150-450); Red Blood Count 5.22 10^6/ul (4.0-5.4); Red Cell Distribution Width 15 % (10.5-15); White Blood Count 11.3 10^3/ul (3.5-10.8)
[2017-07-10 11:42] LABS: INR 0.93 (0.77-1.02)
[2017-07-10 11:51] LABS: EGFR Non-African American 78.5 (>60)
--- NOTE | 2017-07-10 12:02 | RAD ---
HISTORY: Headache COMPARISONS: August 01, 2015 TECHNIQUE: Multiple contiguous axial CT scans were obtained of the head without intravenous contrast. FINDINGS: HEMORRHAGE/INFARCT: There is no hemorrhage or acute infarct. MASSES/SHIFT: There is no mass or shift. EXTRA-AXIAL SPACES: There are no extra-axial fluid collections. SULCI AND VENTRICLES: The sulci and ventricles are normal in size and position for the patient's stated age. CEREBRUM: There are no focal parenchymal abnormalities. BRAINSTEM: There are no focal parenchymal abnormalities. CEREBELLUM: There are no focal parenchymal abnormalities. VESSELS: The vessels are grossly normal. PARANASAL SINUSES: There is mucosal thickening of ethmoid air cells. There is a mucous retention cyst versus polypoid mucosal thickening of the left maxillary sinus. There has been interval resolution of the air-fluid level within the right maxillary sinus. ORBITS: The orbits are unremarkable. BONES AND SOFT TISSUE: No bone or soft tissue abnormalities are noted. OTHER: None IMPRESSION: NO ACUTE INTRACRANIAL PATHOLOGY.
[2017-07-10] MEDS ORDERED: Potassium Chlor TAB* 20 MEQ TAB.ER PO ONE (13:08)
--- NOTE | 2017-07-10 13:43 | RAD ---
Indication: Chest pain, shortness of breath, cough. Tobacco use. Comparison: April 22, 2012 Technique: Upright AP 1302 hours Report: Clear lungs and pleural spaces. Negative for pneumothorax. The heart, pulmonary vasculature, and mediastinal contours are unremarkable. Unremarkable osseous structures and soft tissue contours. IMPRESSION: No evidence for acute intrathoracic disease.
[2017-07-10 13:46] VITALS: BP 128/71
--- NOTE | 2017-07-10 14:01 | ED ---
Vernon Armas Stephanie, scribed for Tanner Quintero on 07/10/17 at 1136 . HPI Cardiac - HPI Summary HPI Summary: The pt is a 51 y/o M presenting to the ED with c/o CP that began at 10:55 while at PFT lab. Symptoms include sudden onset bilateral LE weakness, FARRIS and R UE numbness. The pts CP is rated as a 10/10 in severity. The pts FARRIS is located behind his eyes. The pt states he ad nosebleeds over the weekend. The pt has hx of migraines. - History of Current Complaint Chief Complaint: EDNeurologicalDeficit Stated Complaint: CAT TEAM Time Seen by Provider: 07/10/17 11:12 Hx Obtained From: Patient, Medical Records Onset/Duration: Started Minutes Ago, Still Present Timing: Constant Current Severity: Severe Pain Intensity: 10 Pain Scale Used: 0-10 Numeric Chest Pain Location: Right Anterior Chest Pain Radiates: No Aggravating Factor(s): Exertion Alleviating Factor(s): Nothing Associated Signs and Symptoms: Positive: Chest Pain, Recent Stress - Pulmonary function test, Headaches, Numbness - R UE, Tingling - hands and feet bilaterally, Weakness - bilateral EL - Allergy/Home Medications Allergies/Adverse Reactions: Allergies Allergy/AdvReac Type Severity Reaction Status Date / Time bee venom protein (honey bee) Allergy Anaphylatic Verified 07/10/17 11:12 Shock shellfish derived Allergy Nausea And Verified 07/10/17 11:12 Vomiting Home Medications: Home Medications ALPRAZolam TAB* [Xanax TAB*] 0.5 mg PO BID PRN 07/10/17 [History Confirmed 07/10] ALPRAZolam TAB* [Xanax TAB*] 1 mg PO BEDTIME PRN 07/10/17 [History Confirmed ] Albuterol HFA INHALER* [Ventolin HFA Inhaler*] 2 puff INH .Q4-6H PRN 07/10/17 [ History Confirmed 07/10/17] Cholecalciferol (Vitamin D3) [Vitamin D3] 1,000 unit PO DAILY 07/10/17 [History Confirmed 07/10/17] Fluticasone NASAL SPRAY 50MCG* [Flonase NASAL SPRAY 50MCG*] 2 spray BOTH NARES DAILY 07/10/17 [History Confirmed 07/10/17] Losartan/HCTZ 100/25 (NF) [Hyzaar 100/25 (NF)] 1 tab PO DAILY 07/10/17 [History Confirmed 07/10/17] Omeprazole CAP* [Prilosec CAP* 20 MG] 20 mg PO BID 07/10/17 [History Confirmed 07/10/17] Pseudoephedrine HCL ER TAB* [Sudafed 12 Hour*] 120 mg PO BID PRN 07/10/17 [ History Confirmed 07/10/17] Venlafaxine TAB (NF) [Effexor TAB (NF)] 100 mg PO BID 07/10/17 [History Confirmed 07/10/17] amLODIPine TAB* [Norvasc 5 mg TAB*] 10 mg PO DAILY 07/10/17 [History Confirmed 07/10/17] buPROPion SR TAB* [Wellbutrin SR TAB*] 150 mg PO BID 07/10/17 [History Confirmed 07/10/17] PMH/Surg Hx/FS Hx/Imm Hx Endocrine/Hematology History: Denies: Hx Diabetes, Hx Thyroid Disease Cardiovascular History: Reports: Hx Hypercholesterolemia, Hx Hypertension Denies: Hx Coronary Artery Disease, Hx Myocardial Infarction, Hx Valvular Heart Disease Respiratory History: Reports: Hx Asthma, Hx Sleep Apnea - evaluation for 04/2013 , Other Respiratory Problems/Disorders - current smoker Denies: Hx Chronic Obstructive Pulmonary Disease (COPD) GI History: Denies: Hx Ulcer Musculoskeletal History: Reports: Other Musculoskeletal History - recent onset generalized muscle pain Psychiatric History: Reports: Hx Anxiety, Hx Depression Denies: Hx of Violent Episodes Against Others - Surgical History Surgery Procedure, Year, and Place: APPENDECTOMY - Immunization History Date of Tetanus Vaccine: in last couple years Infectious Disease History: No Infectious Disease History: Denies: Hx Hepatitis, Hx Human Immunodeficiency Virus (HIV), Traveled Outside the [place] in Last 30 Days - Family History Known Family History: Positive: Hypertension Negative: Cardiac Disease, Diabetes Family History: R & n/C - Social History Occupation: Unemployed Lives: Dormitory/Roommates Alcohol Use: Weekly Alcohol Amount: 4 days per week, 2-3 each day Substance Use Type: Reports: None Hx Tobacco Use: Yes Smoking Status (MU): Heavy Every Day Tobacco Smoker Type: Cigarettes Amount Used/How Often: 1ppd Have You Smoked in the Last Year: Yes Review of Systems Negative: Fever Positive: Chest Pain Neurological: Other - tingling in hands and feet bilaterally Positive: Headache, Weakness - bilateral LE, Numbness - R UE All Other Systems Reviewed And Are Negative: Yes Physical Exam - Summary Physical Exam Summary: Appearance: Well appearing, severe pain distress from FARRIS Skin: warm, dry, reflects adequate perfusion Head/face: normal Eyes: EOMI, [place] ENT: normal Neck: supple, non-tender Respiratory: CTA, breath sounds present Cardiovascular: RRR, pulses symmetrical Abdomen: non-tender, soft Bowel: present Musculoskeletal: normal, strength/ROM intact Neuro: normal, sensory motor intact, A&Ox3 Triage Information Reviewed: Yes Vital Signs On Initial Exam: Initial Vitals Temp Pulse Resp BP Pulse Ox 99.6 F 99 25 131/77 99 07/10/17 11:06 07/10/17 11:06 07/10/17 11:06 07/10/17 11:06 07/10/17 11:06 Vital Signs Reviewed: Yes Diagnostics - Vital Signs Vital Signs Temp Pulse Resp BP Pulse Ox 07/10/17 11:26 18 07/10/17 11:08 102 25 99 07/10/17 11:07 98 14 131/77 99 07/10/17 11:06 99.6 F 99 25 131/77 99 - Laboratory Lab Results: Lab Results 07/10/17 Range/Units 11:17 WBC 11.3 H (3.5-10.8) 10^3/ul RBC 5.22 (4.0-5.4) 10^6/ul Hgb 15.5 (14.0-18.0) g/dl Hct 44 (42-52) % MCV 85 (80-94) fL MCH 30 (27-31) pg MCHC 35 (31-36) g/dl RDW 15 (10.5-15) % Plt Count 301 (150-450) 10^3/ul MPV 7.8 (7.4-10.4) um3 Neut % (Auto) 60.3 (38-83) % Lymph % (Auto) 29.4 (25-47) % Borden % (Auto) 7.9 H (0-7) % Eos % (Auto) 2.3 (0-6) % Baso % (Auto) 0.1 (0-2) % Absolute Neuts (auto) 6.8 (1.5-7.7) 10^3/ul Absolute Lymphs (auto) 3.3 (1.0-4.8) 10^3/ul Absolute Monos (auto) 0.9 H (0-0.8) 10^3/ul Absolute Eos (auto) 0.3 (0-0.6) 10^3/ul Absolute Basos (auto) 0 (0-0.2) 10^3/ul Absolute Nucleated RBC 0 10^3/ul Nucleated RBC % 0.1 Result Diagrams: 07/10/17 11:17 07/10/17 11:17 Lab Statement: Any lab studies that have been ordered have been reviewed, and results considered in the medical decision making process. - Radiology CXR Xray Interpretation: No Acute Changes Radiology Interpretation Completed By: Radiologist - No evidence for acute intrathoracic disease. ED physician has reviewed this report. - CT Brain CT Interpretation: No Acute Changes CT Interpretation Completed By: Radiologist - NO ACUTE INTRACRANIAL PATHOLOGY. ED physician has reviewed this report. - EKG 11:20 Cardiac Rate: NL EKG Rhythm: Sinus Rhythm - [address] Segment: Normal Ectopy: None Re-Evaluation - Re-Evaluation First Eval Re-Evaluation Time: 13:42 Change: Improved - The pt denies CP at this time. He is feeling better. Disposition - Course Course Of Treatment: The pt is a 51 y/o M presenting to the ED with c/o CP that began at 10:55 while at PFT lab. Symptoms include sudden onset bilateral LE weakness, FARRIS and R UE numbness. All imaging negative. - Differential Dx - Cardiopulmonary Differential Diagnoses - Cardiopulmonary: Other - headache/anxeity reaction/ dizziness - Diagnoses Provider Diagnoses: Headache Discharge - Sign-Out/Discharge Documenting (check all that apply): Discharge/Admit/Transfer - discarge - Discharge Plan Condition: Stable Disposition: HOME Patient Education Materials: Acute Headache (ED) Referrals: Mis SOUSA,Cely Parker [Primary Care Provider] - 2 Days Additional Instructions: Return to the ED for any new or worsening symptoms. - Billing Disposition and Condition Condition: STABLE Disposition: HOME The documentation as recorded by the Vernon charles Stephanie accurately reflects the service I personally performed and the decisions made by Ingrid pedersen Emmanuel.
== END 2017-07-10 13:58 | disposition home or self-care (01) ==
LOC: ED 11:00
DX: R51 Headache (principal); R07.9 Chest pain, unspecified; R53.1 Weakness; F17.210 Nicotine dependence, cigarettes, uncomplicated
CPT/HCPCS: 36415; 70450; 71045; 80053; 84484; 85025; 85610; 85730; 93005; 99284; A9270-GY; J1200; J2270; J2765

== ENCOUNTER 2017-08-24 23:11 | Emergency (ER) | payer OTHER ==
--- OUTSIDE RECORDS SUMMARY | 2017-08-24 23:22 | XMS REPORT ---
:1965 External Reference #:[id number] Author Organization [facility] Address [address] [address] Phone [phone] Care Team Providers Name Role Phone Konrad Zheng MD Primary Care Physician Unavailable Payers Type Date Identification Numbers Payment Provider Subscriber Commercial Effective: Policy Number: [id number] Luis A Nathan Ruiz 2014 Group Number: [id number] [address] PayID: [id number] [place] [address] Workers Compensation Onset: 2013 Policy Number: [employer] Nathan Ruiz [id number] [employer] PayID: [id number] [address] [place] [address] Problems Date Description Provider Status Onset: 09/11/2015 Open wound of foot, excluding Love Madrid M.D. Active toe(s) Onset: 09/15/2015 Laceration without foreign Lovelida Madrid M.D. Active body, left foot, subs encntr Onset: 07/24/2016 Sleep apnea Maggy Tijerina DNP, RN, Active [employer] Onset: 07/24/2016 Hypersomnia Maggy Tijerina DNP, RN, Active [employer] Onset: 09/25/2016 Obstructive sleep apnea Maggy Tijerina DNP, RN, Active syndrome [employer] Family History Date Family Member(s) Problem(s) Comments [...] x 33 years. 1/2 pack for 1 year Smoking Secondhand smoke exposure Currently 08/18/17 Recreational Drug Use Former Drug User Not [...] Form Strength Qnty SIG Indications Ordering Provider Jo Ellipta 08/18/ Active Aerosol 200-25mcg/ 60unit take 1 R06.02 Michelle S. 2018 Inh s inhaled Foster, daily N.P. Tessalon 08/18/ Active Capsules 100mg 180cap 1 by mouth R06.02 Michelle S. Perles 2018 s three times Foster, a day N.P. Ipratropium 08/18/ Active Solution 0.5-2.5(3) 270ml Take 1 dose R06.02 Michelle S. Bethany/Albute 2018 mg/3ML inhaled 3 x Foster, rol Sulfate daily N.P. Nebulizer 08/18/ Active Device 1units 1 unit R06.02 Michelle S. 2018 inhaled Foster, every 6 N.P. hours and as needed for shortness of breath Incruse 07/30/ Active Aerosol 62.5mcg/In 30unit inhale one Jada Ellipta 2018 h s puff by Tammi mouth every MD day Josseline / Active Tablet 180mg 1 tab po Unknown Allergy 0000 daily Effexor XR / Active Caps ER 150mg 1 by mouth Unknown 0000 24HR one time per day Vitamin D High / Active Capsules 1000Unit 1 by mouth Unknown Potency 0000 every day Amlodipine 00/ Active Tablets 10mg 1 by mouth Unknown Besylate 0000 every day Alprazolam / Active Tablets 0.5mg 1 tab three Unknown 0000 times a day as needed Omeprazole 00/ Active Capsules 20mg 1 by mouth Unknown [address] twice daily Losartan / Active Tablets 100-25mg 1 by mouth Unknown Potassium/Hydr 0000 every day ochlorothiazid e Bupropion HCL / Active Tablets ER 150mg 1 tablet po Lucille-H ER (SR) 0000 12HR twice daily Cely burgos PA Albuterol / Active Inhale 1-2 Unknown Sulfate 0000 puffs every 4 hours as needed Breo Ellipta 07/30/ Hx Aerosol 100-25mcg/ 90unit 1 puff Jada 2018 - Inh s inhaled Tammi, 08/18/ daily 2017 Scooter Walker 08/14/ Hx 1units Use as Nathan 2016 - needed Anderson, 06/09/ 2017 Cephalexin 09/21/ Hx Capsules 500mg 56caps 1 capsule M79.672 Love 2015 - by mouth Julius, 11/22/ every 6 M.D. 2016 hours Silver 09/21/ Hx Cream 1% 400gm apply thin M79.672 Love Sulfadiazine 2015 - layer to Julius, 02/27/ left foot M.D. 2016 twice daily Naproxen 09/10/ Hx Tablets 500mg 60tabs 1 tablet M79.672 Love 2015 - with food Julius, 03/04/ by mouth M.D. 2015 twice a day Norvasc / Hx Unknown - 2015 Hydrocodone/Ac / Hx Unknown etaminophen 0000 - 2015 Repatha / Hx Soln 140mg/ml inject once Unknown 0000 - Prefill every 2 07/23/ Syringe weeks. ( Pt 2017 has stop end of Feb 2016, because no coverage on insurance) Medications Administered in Office Medication Date Status Form Strength Qnty SIG Indications Ordering Provider Celestone 3 mg Administered Injection Mendez and 3mg 012 Jeannette Rios Vital Signs Date Vital Result Comment 08/18/2017 Height 73 inches 6'1" Weight 247.00 lb per pt Heart Rate 80 /min BP Systolic Sitting 148 mmHg Lue large cuff BP Diastolic Sitting 90 mmHg Lue large cuff Respiratory Rate 16 /min O2 % BldC Oximetry 97 % On Ra BMI (Body Mass Index) 32.6 kg/m2 06/10/2017 Height 73 inches 6'1" Weight 238.00 [...] <pending> Procedures Date CPT Code Description Status 07/10/2017 90573 Diffusing Capacity Completed 07/10/2017 99679 Pulmonary Stress Testing, Inc Measurement Heart Rate, Completed Oximetry 07/10/2017 40117 Spirometry Incl Graphic Record Completed 06/05/2017 08918 EKG Tracing & Interpretation Completed 09/06/2016 86921 Polysomnography Sleep Staging 4+ Parameters W/Cpap Completed 08/14/2016 58444 FX Metatarsal Care Completed 06/18/2016 25240 Plethysmography Determination Lung Volumes & Per Completed Airway Resist 06/18/2016 29706 Pulmonary Function><Bronchodil Completed 04/17/2016 99382 Treadmill Interp/Report Only Completed 04/17/2016 09735 Stress Test Supervsn W/Out I/R Completed 03/26/2016 77130 ECHO Transthoracic, Real-Time 2D With Doppler And Color Completed Flow 03/07/2016 70149 ECHO Stress Test Incl Perf Contiuous ekg Monitoring Completed W/Phys Superv 03/07/2016 09129 ECHO Stress Test Incl Perf Contiuous ekg Monitoring Completed W/Phys Superv 03/05/2016 80033 EKG Tracing & Interpretation Completed 12/28/2014 27888 Short Arm Splint Application Completed 12/19/2014 26228 Short Arm Splint Application Completed 12/13/2014 25365 Closed TX Metacarpal FX Single W/O Manipulation, Ea Completed Bone 10/05/2013 76247 Endo-Trachial Tube Completed 10/04/2013 27901 EKG, Interpretation Only Completed 05/13/2011 61406 Rad Exam; Elbow, Limited Completed 05/13/201122936 Inject/Drain Joint/Bursa Intermediate Completed 05/13/201160651 Injection Single Tendon Origin/Insertion Completed 09/14/2007 85826 Echocardiogram Completed 09/14/2007 18244 Echocardiogram Completed 09/14/2007 48575 Echocardiogram Completed 09/14/2007 81138 Pulse Doppler & Continuous Wave Completed 09/14/2007 93559 Pulse Doppler & Continuous Wave Completed 09/14/2007 21460 Pulse Doppler & Continuous Wave Completed 09/14/2007 94404 Color Doppler Completed 09/14/2007 62538 Color Doppler Completed 07/28/2007 89754 Treadmill Interp/Report Only Completed 07/28/2007 28570 Stress Test Supervsn W/Out I/R Completed 07/28/2007 12391 Stress Test Supervsn W/Out I/R Completed Encounters Type Date Location Provider CPT E/M Dx Office Visit 06/10/2017 [facility] [address] R06.02 2:00p [facility] Z87.891 J30.9 E66.09 Office Visit 06/05/2017 1:40p [facility] [address] E78.4 Kisha Viera M.D. G47.33 I10 Office Visit 03/19/2017 9:45a [facility] Maggy Tijerina 51824 G47.33 [facility] STOKES RN, AILEEN G47.14 Office Visit 09/25/2016 10:45a [facility] Maggy Tijerina 80732 G47.33 [facility] STOKES RN, AILEEN G47.14 F17.210 Office Visit 07/24/2016 1:30p [facility] Maggy Tijerina 56967 R06.83 [facility] STOKES RN, AILEEN R35.1 G47.10 G47.8 F41.9 F17.210 Office Visit 05/23/2016 11:20a [facility] Ghassan Viera, 27567 I10 Offset Pressman M.Stefani E78.4 F17.210 E66.9 F15.10 F10.10 Office Visit 03/05/2016 2:30p [facility] Ghassan Viera, 84511 I10 M.DRose E78.4 R07.9 R06.02 Z72.0 E66.9 Z82.49 R94.31 Office Visit 11/24/2015 11:30a [facility] [place] M.D. 76887 M79.672 C.M.A. S91.312D Office Visit 10/20/2015 10:00a [facility] M.D. 22824 M79.672 C.M.A. S91.312D Office Visit 09/29/2015 11:30a [facility] [place] 85854 S91.312D C.MLou Machado M79.672 W20.8xxD Office Visit 09/22/2015 2:15p [facility] M.D. 35156 M79.672 C.M.A. S91.312D W20.8xxD Office Visit 09/15/2015 11:30a [facility] M.D. 18690 M79.672 C.M.A. S91.312D Office Visit 09/11/2015 10:45a [facility] M.D. 52169 M79.672 C.M.A. S91.312A W20.8xxA Office Visit 10/13/2013 11:56a [facility], Angelika Dunham, 54785 972.6 Hospitalists M.D. 451.89 V62.84 Office Visit 10/12/2013 11:56a [facility], Angelika Dunham, 54261 972.6 Hospitalists M.D. 451.89 V62.84 Office Visit 10/11/2013 11:55a [facility], Lyndon Duckworth M.D. 57148 972.6 Hospitalists 298.9 Office Visit 10/10/2013 11:55a [facility] Lyndon Duckworth M.D. 66602 972.6 Hospitalists 298.9 Office Visit 10/09/2013 11:54a [facility] Lyndon Duckworth M.D. 22294 298.9 Hospitalists 972.6 Office Visit 10/08/2013 11:53a [facility] Jose Angel Keenan, 35658 307.9 Hospitalists D.O. 972.6 780.97 518.81 Office Visit 10/07/2013 11:53a [facility] Jose Angel Keenan, 97891 307.9 Hospitalists D.O. 972.6 518.81 780.97 Office Visit 10/06/2013 11:52a [facility] Sharif Martinez D.O. 28655 307.9 Hospitalists 972.6 V62.84 780.97 Office Visit 10/05/2013 11:46a [facility] Sharif Martinez D.O. 13719 307.9 Hospitalists 972.6 780.97 V62.84 Office Visit 10/04/2013 11:46a [facility] Sharif Martinez D.O. 83561 307.9 Hospitalists 518.81 972.6 V62.84 Office Visit 10/03/2013 11:45a [facility] Sharif Martinez D.O. 55482 799.89 Hospitalists 307.9 972.6 V62.84 Office Visit 10/03/2013 11:44[place] [facility] [place], [address] 972.6 Assoc, Hospitalaamir Machado 780.97 995.90 V62.84 Office Visit 02/04/2013 8:15a [facility] Sharon Cohn, 71432 842.00 Of Drea Machado Office Visit 06/13/2011 9:00a [facility] Mendez Rios M.D. 67129 726.32 Of C.MLou Office Visit 05/13/2011 8:30a [facility] Mendez Rios M.D. 59250 726.32 Of C.M.A. Office Visit 07/28/2007 10:00a [facility] Erlin Taveras, 36266 786.50 M.D. 401.1 Plan of Care Future Appointment(s):10/23/2017 10:30 am - Jada Cadena MD at [facility]08/18/2017 - Michelle Bach, N.P.R06.02 Shortness of breathNew Medication:Breo Ellipta 200-25 mcg/InhTessalon Perles 100 mgIpratropium Bethany/Albuterol Sulfate 0.5-2.5(3) mg/3MLNebulizerFollow up:2 months OV KodaliRecommendations:Increase Breo Start nebulizer 3 xdaily with rescue inhaler for breakthrough Continue Incruse Use rescue in haler PRNG47.33 Obstructive sleep apnea (adult) (pediatric)New Orders:Sleep-KlfuzkvaI23.891 Personal history of nicotine dependence
--- NOTE | 2017-08-25 00:01 | ED ---
Lower Extremity - HPI Summary HPI Summary: 52 male presents with left ankle pain today. He states he rolled his ankle a few times today. He states his previous fracture to his ankle. He also had previous Fracture to his foot. He states at baseline he has some numbness. He states that it just feels different. He admits to edema on the lateral aspect of his ankle. He inverted his ankle. He denies any other injury. No knee pain. He took his normal pain medication with minimal relief. - History of Current Complaint Chief Complaint: EDExtremityLower Stated Complaint: LEFT ANKLE INJURY Time Seen by Provider: 08/24/17 23:30 Pain Intensity: 8 - Allergies/Home Medications Allergies/Adverse Reactions: Allergies Allergy/AdvReac Type Severity Reaction Status Date / Time bee venom protein (honey bee) Allergy Anaphylatic Verified 08/24/17 23:15 Shock shellfish derived Allergy Nausea And Verified 08/24/17 23:15 Vomiting Home Medications: Home Medications Benzonatate CAP* 100 mg PO TID 08/25/17 [History Confirmed 08/25/17] Breo Ellipta 200-25 Mcg INH 1 puff INH DAILY 08/25/17 [History Confirmed ] Incruse ELLIPTA MDI (NF) 1 puff INH DAILY 08/25/17 [History Confirmed 08/25/17] Meloxicam 7.5 mg PO BID PRN 08/25/17 [History Confirmed 08/25/17] Vitamin D3 2,000 i.u. PO DAILY 08/25/17 [History Confirmed 08/25/17] PMH/Surg Hx/FS Hx/Imm Hx Endocrine/Hematology History: Denies: Hx Diabetes, Hx Thyroid Disease Cardiovascular History: Reports: Hx Hypercholesterolemia, Hx Hypertension Denies: Hx Coronary Artery Disease, Hx Myocardial Infarction, Hx Valvular Heart Disease Respiratory History: Reports: Hx Asthma, Hx Sleep Apnea - evaluation for 04/2013 , Other Respiratory Problems/Disorders - current smoker Denies: Hx Chronic Obstructive Pulmonary Disease (COPD) GI History: Denies: Hx Ulcer Musculoskeletal History: Reports: Other Musculoskeletal History - recent onset generalized muscle pain Psychiatric History: Reports: Hx Anxiety, Hx Depression Denies: Hx of Violent Episodes Against Others - Surgical History Surgery Procedure, Year, and Place: APPENDECTOMY - Immunization History Date of Tetanus Vaccine: in last couple years Infectious Disease History: No Infectious Disease History: Denies: Hx Hepatitis, Hx Human Immunodeficiency Virus (HIV), Traveled Outside the [place] in Last 30 Days - Family History Known Family History: Positive: None, Hypertension Negative: Cardiac Disease, Diabetes Family History: R & n/C - Social History Alcohol Use: None Alcohol Amount: 4 days per week, 2-3 each day Substance Use Type: Reports: None Hx Tobacco Use: Yes Smoking Status (MU): Heavy Every Day Tobacco Smoker Type: Cigarettes Amount Used/How Often: 1ppd Have You Smoked in the Last Year: Yes Review of Systems Negative: Fever Negative: Chest Pain Negative: Shortness Of Breath Positive: Myalgia - left ankle pain All Other Systems Reviewed And Are Negative: Yes Physical Exam Triage Information Reviewed: Yes Vital Signs On Initial Exam: Initial Vitals Temp Pulse Resp BP Pulse Ox 97.9 F 87 16 158/84 97 08/24/17 23:13 08/24/17 23:13 08/24/17 23:13 08/24/17 23:13 08/24/17 23:13 Vital Signs Reviewed: Yes Appearance: Positive: Well-Appearing Skin: Positive: Warm, Dry Head/Face: Positive: Normal Head/Face Inspection Eyes: Positive: Normal, Conjunctiva Clear ENT: Positive: Pharynx normal Respiratory/Lung Sounds: Positive: Clear to Auscultation, Breath Sounds Present Cardiovascular: Positive: Normal, RRR Musculoskeletal: Positive: Limited @ - left ankle, Edema Left - lateral malleolus, Other - Tenderness over lateral malleolus, decreased sensation of foot at baseline, good pulses, cap refill less than 2 seconds Neurological: Positive: Normal Psychiatric: Positive: Normal Diagnostics - Vital Signs Vital Signs Temp Pulse Resp BP Pulse Ox 08/24/17 23:13 97.9 F 87 16 158/84 97 - Laboratory Lab Statement: Any lab studies that have been ordered have been reviewed, and results considered in the medical decision making process. - Radiology ankle Xray Interpretation: No Acute Changes - Old avulsion fracture no new fracture seen Radiology Interpretation Completed By: ED Physician Lower Extremity Course/Dx - Course Course Of Treatment: 52 male presents with left ankle pain today. He states he rolled his ankle a few times today. He states his previous fracture to his ankle. He also had previous Fracture to his foot. He states at baseline he has some numbness. He states that it just feels different. He admits to edema on the lateral aspect of his ankle. He inverted his ankle. He denies any other injury. No knee pain. He took his normal pain medication with minimal relief. On exam edema over lateral malleolus. Good pulses. discussed with dr parkinson on xray see old remodeling but no new fracture. Placed in a gel splint and will have practice rice. Patient understands agrees the plan. - Diagnoses Differential Diagnosis/HQI/PQRI: Positive: Fracture (Closed), Sprain, Strain Provider Diagnoses: Left ankle injury Discharge - Sign-Out/Discharge Documenting (check all that apply): Discharge/Admit/Transfer - Discharge Plan Condition: Good Disposition: HOME Patient Education Materials: Ankle Sprain (ED) Referrals: Mis SOUSA,Cely Parker [Primary Care Provider] - Additional Instructions: Stay off ankle as much as possible Ice, elevate, keep in ROBBY Ibuprofen every 6 hours for pain Follow up with primary or ortho if no improvement Return to ED if develop or any new or worsening symptoms - Billing Disposition and Condition Condition: GOOD Disposition: Home
[2017-08-25 00:30] VITALS: BP 131/70
--- NOTE | 2017-08-25 08:00 | RAD ---
INDICATION: Left ankle injury COMPARISON: Similar x-ray August 09, 2016 TECHNIQUE: 3 views of the left ankle were obtained. FINDINGS: The well corticated bones exhibit normal alignment. Joint spaces appear maintained. No fracture is seen. IMPRESSION: Normal ankle radiograph. If the patient's symptoms persist, follow-up imaging is recommended.
== END 2017-08-25 00:27 | disposition home or self-care (01) ==
LOC: ED 23:11
DX: S99.912A Unspecified injury of left ankle, initial encounter (principal); M25.572 Pain in left ankle and joints of left foot; F17.210 Nicotine dependence, cigarettes, uncomplicated; X58.XXXA Exposure to other specified factors, initial encounter; Y93.9 Activity, unspecified
CPT/HCPCS: 99282

== ENCOUNTER 2017-10-31 13:25 | Emergency (ER) | payer OTHER ==
--- OUTSIDE RECORDS SUMMARY | 2017-10-31 13:31 | XMS REPORT ---
:1965 External Reference #:[id number] Author Organization [facility] Address [address] [place] [address] [place] [address] Phone [phone] Care Team Providers Name Role Phone Konrad Zheng MD Primary Care Physician Unavailable Payers Type Date Identification Numbers Payment Provider Subscriber Commercial Effective: Policy Number: [id number] [place] Nathan Ruiz 2014 Group Number: [id number] [address] PayID: [id number] [place] [address] Workers Compensation Onset: 2013 Policy Number: [employer] Nathan Ruiz [id number] [employer] PayID: [id number] [address] [place] [address] Problems Date Description Provider Status Onset: 09/11/2015 Open wound of foot, excluding Lovelida Madrid M.D. Active toe(s) Onset: 09/15/2015 Laceration without foreign Lovelida Madrid M.D. Active body, left foot, subs encntr Onset: 07/24/2016 Sleep apnea Maggy Tijerina DNP, RN, Active [employer] Onset: 07/24/2016 Hypersomnia Maggy Tijerina DNP, RN, Active [employer] Onset: 09/25/2016 Obstructive sleep apnea Maggy Tijerina DNP, RN, Active syndrome [employer] Family History Date Family Member(s) Problem(s) Comments [...] Form Strength Qnty SIG Indications Ordering Provider Nebulizer 08/20/ Active Device 1unit 1 unit J44.9 Jada 2018 s nebulization Tammi, with albuterol every 6 hours and as needed Breo Ellipta 08/18/ Active Aerosol 200-25mcg 180un take 1 R06.02 Michelle S. 2018 /Inh its inhaled daily Foster, N.P. Tessalon 08/18/ Active Capsules 100mg 180ca 1 by mouth R06.02 Michelle S. Perles 2018 ps three times a , day N.P. Ipratropium 08/18/ Active Solution 0.5-2.5(3 270ml Take 1 dose R06.02 Michelle S. Clemmons/[place] 2018 )mg/3ML inhaled 3 x Foster, rol Sulfate daily N.P. Nebulizer 08/18/ Active Device 1unit 1 unit R06.02 Michelle S. 2018 s inhaled every Foster, 6 hours and N.P. as needed for shortness of breath Incruse 07/30/ Active Aerosol 62.5mcg/I 30uni inhale one Jada Ellipta 2018 nh ts puff by mouth Tammi, every day Josseline / Active Tablet 180mg 1 tab po Unknown Allergy 0000 daily Effexor XR / Active Caps ER 225mg 1 by mouth Unknown 0000 24HR one time per day Vitamin D High / Active Capsules 1000Unit 1 by mouth Unknown Potency 0000 every day Amlodipine / Active Tablets 10mg 1 by mouth Unknown Besylate 0000 every day Alprazolam / Active Tablets 0.5mg 1 tab three Unknown 0000 times a day as needed Omeprazole / Active Capsules 20mg 1 by mouth Unknown 0000 DR twice daily Losartan / Active Tablets 100-25mg 1 by mouth Unknown Potassium/Hydr 0000 every day ochlorothiazid e Bupropion HCL / Active Tablets ER 150mg 1 tablet po Lucille-H ER (SR) 0000 12HR twice daily ekCely deleon PA Albuterol / Active Inhale 1-2 Unknown Sulfate 0000 puffs every 4 hours as needed Repatha / Active Soln 140mg/ml 140mg/ml Lucille-H 0000 Prefill every 14 days ektor, LATRELL Preston Breo Ellipta 07/30/ Hx Aerosol 100-25mcg 90uni 1 puff Jada 2018 - /Inh ts inhaled daily Tammi, 08/18/ 2018 Scooter Walker 08/14/ Hx 1unit Use as needed Nathan 2017 - s Monica, 06/09/ 2017 Cephalexin 09/21/ Hx Capsules 500mg 56cap 1 capsule by M79.672 Love 2016 - s mouth every 6 Julius, 11/22/ hours M.D. 2016 Silver 09/21/ Hx Cream 1% 400gm apply thin M79.672 Love Sulfadiazine 2016 - layer to left Julius, 02/27/ foot twice M.D. 2016 daily Naproxen 09/10/ Hx Tablets 500mg 60tab 1 tablet with M79.672 Love 2016 - s food by mouth Julius, 03/04/ twice a day M.D. 2016 Norvasc / Hx Unknown 0000 - 2015 Hydrocodone/Ac / Hx Unknown etaminophen 0000 - 2015 Repatha / Hx Soln 140mg/ml inject once Unknown 0000 - Prefill every 2 07/23/ Syringe weeks. ( Pt 2017 has stop end of Feb 2016, because no coverage on insurance) Medications Administered in Office Medication Date Status Form Strength Qnty SIG Indications Ordering Provider Celestone 3 mg Administered Injection Mendez and 3mg Logan Rios M.D. Vital Signs Date Vital Result Comment 10/23/2017 Height 73 inches 6'1" Weight 238.00 lb Heart Rate 92 /min BP Systolic Sitting 142 mmHg BP Diastolic Sitting 86 mmHg Respiratory Rate 14 /min O2 % BldC Oximetry 97 % BMI (Body Mass Index) 31.4 kg/m2 08/18/2017 Height 73 inches 6'1" Weight 247.00 [...] Procedures Date CPT Code Description Status 07/10/2017 44155 Diffusing Capacity Completed 07/10/2017 17400 Pulmonary Stress Testing, Inc Measurement Heart Rate, Completed Oximetry 07/10/2017 75284 Spirometry Incl Graphic Record Completed 07/10/2017 24654 EKG, Interpretation Only Completed 06/05/2017 60827 EKG Tracing & Interpretation Completed 09/06/2016 38611 Polysomnography Sleep Staging 4+ Parameters W/Cpap Completed 08/14/2016 35538 FX Metatarsal Care Completed 06/18/2016 87981 Pulmonary Function><Bronchodil Completed 06/18/2016 73951 Plethysmography Determination Lung Volumes & Per Airway Completed Resist 04/17/2016 94554 Treadmill Interp/Report Only Completed 04/17/2016 54141 Stress Test Supervsn W/Out I/R Completed 03/26/2016 24142 ECHO Transthoracic, Real-Time 2D With Doppler And Color Completed Flow 03/07/2016 98824 ECHO Stress Test Incl Perf Contiuous ekg Monitoring Completed W/Phys Superv 03/07/2016 45364 ECHO Stress Test Incl Perf Contiuous ekg Monitoring Completed W/Phys Superv 03/05/2016 23872 EKG Tracing & Interpretation Completed 12/28/2014 34370 Short Arm Splint Application Completed 12/19/2014 74679 Short Arm Splint Application Completed 12/13/2014 61129 Closed TX Metacarpal FX Single W/O Manipulation, Ea Completed Bone 10/05/2013 72210 Endo-Trachial Tube Completed 10/04/2013 75163 EKG, Interpretation Only Completed 05/13/2011 26082 Rad Exam; Elbow, Limited Completed 05/13/2011 87795 Inject/Drain Joint/Bursa Intermediate W/O US Completed 05/13/201169308 Injection Single Tendon Origin/Insertion Completed 09/14/2007 19863 Echocardiogram Completed 09/14/2007 37422 Echocardiogram Completed 09/14/2007 88035 Echocardiogram Completed 09/14/2007 32834 Pulse Doppler & Continuous Wave Completed 09/14/2007 63041 Pulse Doppler & Continuous Wave Completed 09/14/2007 45893 Pulse Doppler & Continuous Wave Completed 09/14/2007 11900 Color Doppler Completed 09/14/2007 80163 Color Doppler Completed 07/28/2007 98999 Treadmill Interp/Report Only Completed 07/28/2007 11091 Stress Test Supervsn W/Out I/R Completed 07/28/2007 05613 Stress Test Supervsn W/Out I/R Completed Encounters Type Date Location Provider CPT E/M Dx Office Visit 08/18/2017 [facility] Michelle Bach, 54477 R06.02 10:30a [facility] Florentino G47.33 F17.211 Office Visit 06/10/2017 2:00p [facility] [place] [address] R06.02 [facility] Z87.891 J30.9 E66.09 Office Visit 06/05/2017 1:40p [facility] Ghassan Monique 71394 E78.4 Kisha Viera M.D. G47.33 I10 Office Visit 03/19/2017 9:45a [facility] Maggy Tijerina, 26964 G47.33 [facility] Office Visit 09/25/2016 10:45a [facility] Maggy Tijerina, 91898 G47.33 [facility] G47.14 F17.210 Office Visit 07/24/2016 1:30p [facility] Maggy Tijerina, 10964 R06.83 [facility] R35.1 G47.10 G47.8 F41.9 F17.210 Office Visit 05/23/2016 11:20a [facility] Ghassan Viera, 98719 I10 [facility] Jeannetet E78.4 F17.210 E66.9 F15.10 F10.10 Office Visit 03/05/2016 2:30p [facility] Ghassan Viera, 03049 I10 M.DRose E78.4 R07.9 R06.02 Z72.0 E66.9 Z82.49 R94.31 Office Visit 11/24/2015 11:30a [facility] [place] M.D. 23978 M79.672 C.M.ARose S91.312D Office Visit 10/20/2015 10:00a [facility] M.D. 03137 M79.672 C.M.ARose S91.312D Office Visit 09/29/2015 11:30a [facility] 49128 S91.312D CClaudia Machado M79.672 W20.8xxD Office Visit 09/22/2015 2:15p [facility] M.D. 14380 M79.672 C.M.A. S91.312D W20.8xxD Office Visit 09/15/2015 11:30a [facility] M.D. 67555 M79.672 C.M.ARose S91.312D Office Visit 09/11/2015 10:45a [facility] M.D. 36682 M79.672 CClaudia S91.312A W20.8xxA Office Visit 10/13/2013 11:56a [facility], Angelika Dunham, 21644 972.6 Hospitalists M.DRose 451.89 V62.84 Office Visit 10/12/2013 11:56a [facility], Angelika Dunham, 10737 972.6 Hospitalists M.DRose 451.89 V62.84 Office Visit 10/11/2013 11:55a [facility],keon Duckworth M.D. 77834 972.6 Hospitalists 298.9 Office Visit 10/10/2013 11:55a [facility],keon Duckworth M.D. 59145 972.6 Hospitalists 298.9 Office Visit 10/09/2013 11:54a [facility],keon Duckworth M.D. 14838 298.9 Hospitalists 972.6 Office Visit 10/08/2013 11:53a [facility], Jose Angel Keenan, 90623 307.9 Hospitalists D.O. 972.6 780.97 518.81 Office Visit 10/07/2013 11:53a [facility], Jose Angel Keenan, 78918 307.9 Hospitalists D.O. 972.6 518.81 780.97 Office Visit 10/06/2013 11:52a [facility],keon Martinez D.O. 95545 307.9 Hospitalists 972.6 V62.84 780.97 Office Visit 10/05/2013 11:46a [facility],keon Martinez D.O. 86427 307.9 Hospitalists 972.6 780.97 V62.84 Office Visit 10/04/2013 11:46a [facility],keon Martinez D.O. 06494 307.9 Hospitalists 518.81 972.6 V62.84 Office Visit 10/03/2013 11:45a [facility],pc Sharif Martinez D.O. 81812 799.89 Hospitalists 307.9 972.6 V62.84 Office Visit 10/03/2013 11:44a [facility] [place], [address] 972.6 Assoc, Hospitalists M.Stefani 780.97 995.90 V62.84 Office Visit 02/04/2013 8:15a [facility] Sharon Cohn, 90124 842.00 Of C.M.ARose Machado Office Visit 06/13/2011 9:00a [facility] Mendez Rios M.D. 56492 726.32 Of C.M.A. Office Visit 05/13/2011 8:30a [facility] Mendez Rios M.D. 09193 726.32 Of C.M.A. Office Visit 07/28/2007 10:00a [facility] Erlin Taveras, 74890 786.50 MAlpa 401.1 Plan of Care Future Appointment(s):10/26/2018 1:45 pm - Jada Cadena MD [facility]10/23/2017 - Jada Cadena, MDR06.02 Shortness of breathFollow up:1 yearG47.33 Obstructive sleep apnea (adult) (pediatric)E66.09 Other obesity due to excess calories
--- NOTE | 2017-10-31 13:55 | ED ---
Shortness of Breath - HPI Summary HPI Summary: This is scribe Drew Martinez documenting for attending Kayode Oliveros MD. A 52 y/o male ELIZABETH presents to ED c/o SOB. In the ED room, the patient has a rate of 76 BPM and O2 saturation of 98%. Currently, the patient feels much better compared to what he was. As per triage, "shortness of breath today out of no where. did his daily routines and had a coughing fit which he could not stop. history of severe anxiety/depression". According to the patient, he has had a couple stressful past weeks with a lot going on and he frequently gets panic attacks. He noted that he wasn't worried about anything or thinking about anything to arise a panic attack, but for some reasons the patient started coughing profusely. He stated that he does have respiratory issues, but he took all his routine medications and didn't do any activity that was different. He had difficulty breathing and cough was constant. Additionally, he has a headache and was diaphoretic because of the constant coughing. It was noted that the patient used his nebulizer which alleviated the symptoms temporarily, but came back shortly. He thinks he feels fine now due to the O2 given during EMS. PMHx of anxiety (sees therapist) and depression. Currently on anti-anxiety and anti-depressants. Pt cannot pass pulmonary exam. I, Dr. Oliveros, personally performed the services described in this documentation as scribed in my presence and it is both accurate and complete. - History of Current Complaint Chief Complaint: EDShortnessOfBreath Time Seen by Provider: 10/31/17 13:46 Hx Obtained From: Patient Onset/Duration: Sudden Onset, Lasting Hours, Resolved Timing: Constant Current Severity: None Dyspnea At: Rest Aggrevating Factors: Nothing Alleviating Factors: Nothing Associated Signs & Symptoms: Cough (Nonproductive), Diaphoresis - Allergy/Home Medications Allergies/Adverse Reactions: Allergies Allergy/AdvReac Type Severity Reaction Status Date / Time bee venom protein (honey bee) Allergy Anaphylatic Verified 08/24/17 23:15 Shock shellfish derived Allergy Nausea And Verified 08/24/17 23:15 Vomiting Home Medications: Home Medications Albuterol HFA INHALER* [Ventolin HFA Inhaler*] 2 puff INH .Q4-6H PRN 10/31/17 [ History Confirmed 10/31/17] Cholecalciferol (Vitamin D3) [Vitamin D3] 1,000 unit PO DAILY 10/31/17 [History Confirmed 10/31/17] Evolocumab [Repatha] 140 mg SUBCUT Q14D 10/31/17 [History Confirmed 10/31/17] Fexofenadine (NF) [Josseline 180 (NF)] 180 mg PO DAILY PRN 10/31/17 [History Confirmed 10/31/17] Fluticasone NASAL SPRAY 50MCG* [Flonase NASAL SPRAY 50MCG*] 2 spray BOTH NARES DAILY PRN 10/31/17 [History Confirmed 10/31/17] Fluticasone/Vilanterol MDI(NF) [Breo Ellipta MDI (NF)] 1 puff INH DAILY [History Confirmed 10/31/17] Losartan/Hydrochlorothiazide [Losartan Potassium/Hydroc 100-25 mg] 1 tab PO DAILY 10/31/17 [History Confirmed 10/31/17] Meloxicam(NF) [Mobic(NF)] 7.5 mg PO BID 10/31/17 [History Confirmed 10/31/17] Venlafaxine ER (NF) [Effexor ER (NF)] 150 mg PO DAILY 10/31/17 [History Confirmed 10/31/17] Venlafaxine EXT RELEASE CAP* [Effexor Xr CAP*] 75 mg PO DAILY 10/31/17 [History Confirmed 10/31/17] PMH/Surg Hx/FS Hx/Imm Hx Endocrine/Hematology History: Denies: Hx Diabetes, Hx Thyroid Disease Cardiovascular History: Reports: Hx Hypercholesterolemia, Hx Hypertension Denies: Hx Coronary Artery Disease, Hx Myocardial Infarction, Hx Valvular Heart Disease Respiratory History: Reports: Hx Asthma, Hx Sleep Apnea - evaluation for 04/2013 , Other Respiratory Problems/Disorders - current smoker Denies: Hx Chronic Obstructive Pulmonary Disease (COPD) GI History: Denies: Hx Ulcer Musculoskeletal History: Reports: Other Musculoskeletal History - recent onset generalized muscle pain Psychiatric History: Reports: Hx Anxiety, Hx Depression Denies: Hx of Violent Episodes Against Others - Surgical History Surgery Procedure, Year, and Place: APPENDECTOMY - Immunization History Date of Tetanus Vaccine: in last couple years Infectious Disease History: No Infectious Disease History: Denies: Hx Hepatitis, Hx Human Immunodeficiency Virus (HIV), Traveled Outside the [place] in Last 30 Days - Family History Known Family History: Positive: Hypertension Negative: Cardiac Disease, Diabetes Family History: R & n/C - Social History Alcohol Use: None Alcohol Amount: 4 days per week, 2-3 each day Substance Use Type: Reports: None Hx Tobacco Use: Yes Smoking Status (MU): Light Every Day Tobacco Smoker Type: Cigarettes Amount Used/How Often: 1ppd Have You Smoked in the Last Year: Yes Review of Systems Positive: Skin Diaphoresis. Negative: Fever Positive: Shortness Of Breath, Cough Positive: Headache All Other Systems Reviewed And Are Negative: Yes Physical Exam - Summary Physical Exam Summary: Appearance: The patient is well-nourished in no acute distress and in no acute pain. Skin: The skin is warm and dry and skin color reflects adequate perfusion. HEENT: The head is normocephalic and atraumatic. The pupils are equal and reactive. The conjunctivae are clear and without drainage. Nares are patent and without drainage. Mouth reveals moist mucous membranes and the throat is without erythema and exudate. The external ears are intact. The ear canals are patent and without drainage. The tympanic membranes are intact. Neck: The neck is supple with full range of motion and non-tender. There are no carotid bruits. There is no neck vein distension. Respiratory: Chest is non-tender. Lungs are clear to auscultation and breath sounds are symmetrical and equal. Cardiovascular: Heart is regular rate and rhythm. There is no murmur or rub auscultated. There is no peripheral edema and pulses are symmetrical and equal. Abdomen: The abdomen is soft and non-tender. There are normal bowel sounds heard in all four quadrants and there is no organomegaly palpated. Musculoskeletal: There is no back tenderness noted. Extremities are non-tender with full range of motion. There is good capillary refill. There is no peripheral edema or calf tenderness elicited. Neurological: Patient is alert and oriented to person, place and time. The patient has symmetrical motor strength in all four extremities. Cranial nerves are grossly intact. Deep tendon reflexes are symmetrical and equal in all four extremities. Psychiatric: The patient has an appropriate affect and does not exhibit any anxiety or depression. Triage Information Reviewed: Yes Vital Signs On Initial Exam: Initial Vitals Temp Pulse Resp BP Pulse Ox 98.0 F 82 24 124/68 100 10/31/17 13:31 10/31/17 13:31 10/31/17 13:31 10/31/17 13:31 10/31/17 13:31 Vital Signs Reviewed: Yes Diagnostics - Vital Signs Vital Signs Temp Pulse Resp BP Pulse Ox 10/31/17 13:46 24 10/31/17 13:37 79 24 100 10/31/17 13:31 98.0 F 82 24 124/68 100 - Laboratory Result Diagrams: 10/31/17 14:54 10/31/17 14:54 Lab Statement: Any lab studies that have been ordered have been reviewed, and results considered in the medical decision making process. - Radiology CXR Radiology Interpretation Completed By: Radiologist - NO ACTIVE CARDIOPULMONARY DISEASE. ED physician reviewed this radiology report. - EKG 1424 Cardiac Rate: NL - 73 BPM EKG Rhythm: Sinus Rhythm ST Segment: Normal Ectopy: None EKG Interpretation: No STEMI Course/Dx - Course Course Of Treatment: Mr. Ruiz presented after paroxysmal coughing fit which led to shortness of breath. He was observed here in the emergency department and remained stable with normal vital signs. Labs and chest x-ray were within normal limits. I'm unsure the etiology could of been panic or bronchospasm but I believe he is safe for discharge at this point. He follows with Dr. Mckeon and I recommended outpatient follow-up. - Diagnoses Provider Diagnoses: Bronchospasm Discharge - Sign-Out/Discharge Documenting (check all that apply): Patient Departure - DISCHARGE - Discharge Plan Condition: Stable Disposition: HOME Patient Education Materials: Shortness of Breath (ED) Referrals: Jada Mckeon MD [Medical Doctor] - (FOLLOW UP WITH DR. MCKEON IN 2-3 DAYS. ) Additional Instructions: FOLLOW UP WITH DR. MCKEON IN 2-3 DAYS. RETURN TO THE ED FOR ANY NEW OR WORSENING SYMPTOMS. - Billing Disposition and Condition Condition: STABLE Disposition: Home
--- NOTE | 2017-10-31 14:55 | RAD ---
HISTORY: SOB COMPARISONS: July 10, 2017 VIEWS: 4: Frontal dual-energy and lateral views of the chest. FINDINGS: CARDIOMEDIASTINAL SILHOUETTE: The cardiomediastinal silhouette is normal. DAVID: The david are normal. PLEURA: The costophrenic angles are sharp. No pleural abnormalities are noted. LUNG PARENCHYMA: The lungs are clear. ABDOMEN: The upper abdomen is clear. There is no subphrenic gas. BONES AND SOFT TISSUES: No bone or soft tissue abnormalities are noted. OTHER: None. IMPRESSION: NO ACTIVE CARDIOPULMONARY DISEASE.
[2017-10-31 15:02] LABS: ABS Basophils 0.2 10^3/ul (0-0.2); ABS Eosinophils 0.2 10^3/ul (0-0.6); ABS Lymphocytes 1.7 10^3/ul (1.0-4.8); ABS Monocytes 0.8 10^3/ul (0-0.8); ABS Neutrophils 10.2 10^3/ul (1.5-7.7); ABS Nucleated RBC 0 10^3/ul; Eosinophil % 1.6 % (0-6); Hematocrit 44 % (42-52); Hemoglobin 14.7 g/dl (14.0-18.0); Lymphocyte % 13.2 % (25-47); Mean Corpuscular HGB Conc 34 g/dl (31-36); Mean Corpuscular Hemoglobin 29 pg (27-31); Mean Corpuscular Volume 86 fL (80-94); Mean Platelet Volume 7.8 um3 (7.4-10.4); Nucleated Red Blood Cells % 0; Platelet Count 239 10^3/ul (150-450); Red Blood Count 5.07 10^6/ul (4.00-5.40); Red Cell Distribution Width 15 % (10.5-15); White Blood Count 13.1 10^3/ul (3.5-10.8)
[2017-10-31 15:23] LABS: EGFR Non-African American 90.5 (>60)
[2017-10-31 17:58] VITALS: BP 150/75
== END 2017-10-31 17:57 | disposition home or self-care (01) ==
LOC: ED 13:25
DX: J98.01 Acute bronchospasm (principal); F17.210 Nicotine dependence, cigarettes, uncomplicated
CPT/HCPCS: 36415; 71046; 80053; 83605; 84484; 85025; 86140; 93005; 99283

== ENCOUNTER 2017-11-17 17:17 | Emergency (ER) | payer OTHER ==
[2017-11-17] MEDS ORDERED: NS 0.9% 1000 ML* 1,000 ML IV ONE (17:27)
[2017-11-17] MEDS ORDERED: Morphine INJ** 4 MG/ML 1 ML CARPUJECT IV ONE (17:28)
[2017-11-17] MEDS ORDERED: ALPRAZolam TAB* 0.5 MG PO ONE (17:28)
[2017-11-17] MEDS ORDERED: LORazepam INJ* 2 MG/ML 1 ML VIAL ONE (17:31)
[2017-11-17] MEDS ORDERED: Morphine INJ* 2 MG/ML 1 ML SYRINGE (TWO MG - NEW SYRINGE VERSION) ONE (17:32)
[2017-11-17] MEDS ORDERED: LORazepam INJ* 2 MG/ML 1 ML VIAL IV PUSH ONE ×2 (17:33→18:07)
[2017-11-17] MEDS ORDERED: Morphine INJ* 2 MG/ML 1 ML SYRINGE (TWO MG - NEW SYRINGE VERSION) IV ONE (17:33)
[2017-11-17] MEDS ORDERED: HYDROmorphone INJ* 2 MG/ML CARPUJECT SYRINGE IV SLOW PU ONE ×3 (17:36→18:05)
[2017-11-17 17:49] LABS: Hematocrit 43 % (42-52); Hemoglobin 14.8 g/dl (14.0-18.0); Mean Corpuscular HGB Conc 34 g/dl (31-36); Mean Corpuscular Hemoglobin 29 pg (27-31); Mean Corpuscular Volume 85 fL (80-94); Mean Platelet Volume 7.8 um3 (7.4-10.4); Platelet Count 321 10^3/ul (150-450); Red Blood Count 5.12 10^6/ul (4.00-5.40); Red Cell Distribution Width 15 % (10.5-15); White Blood Count 15.8 10^3/ul (3.5-10.8)
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
[2017-11-17 17:54] LABS: INR 0.9 (0.77-1.02)
[2017-11-17] MEDS ORDERED: Tetan/Diph/Pertus SYR(Tdap)* 0.5 ML SYR(BOOSTRIX) use SYR IM ONE (18:01)
[2017-11-17 18:20] VITALS: BP 192/103
[2017-11-17 18:27] LABS: ABS Basophils 0 10^3/ul (0-0.2); ABS Neutrophils 9.5 10^3/ul (1.5-7.7); ABS Neutrophils 9.6 10^3/ul (1.5-7.7); Monocytes % 6 % (0-7)
== END 2017-11-17 18:56 | disposition short-term general hospital (02) ==
LOC: ED 17:17
DX: T21.21XA Burn of second degree of chest wall, initial encounter (principal); T20.20XA Burn of second degree of head, face, and neck, unspecified site, initial encounter; T23.209A Burn of second degree of unspecified hand, unspecified site, initial encounter; T22.219A Burn of second degree of unspecified forearm, initial encounter; E78.00 Pure hypercholesterolemia, unspecified; I10 Essential (primary) hypertension; F17.210 Nicotine dependence, cigarettes, uncomplicated; W40.1XXA Explosion of explosive gases, initial encounter; Y93.89 Activity, other specified; Y92.9 Unspecified place or not applicable
CPT/HCPCS: 36415; 80053; 83605; 83690; 85025; 85060; 85610; 86140; 90471; 90715; 96361; 96374; 96375; 96376; 99283; J1170; J2060; J2270

== ENCOUNTER 2017-12-04 23:39 | Emergency (ER) | payer OTHER ==
[2017-12-05 00:52] LABS: ABS Basophils 0 10^3/ul (0-0.2); ABS Eosinophils 0.2 10^3/ul (0-0.6); ABS Lymphocytes 2.4 10^3/ul (1.0-4.8); ABS Monocytes 1.2 10^3/ul (0-0.8); ABS Nucleated RBC 0 10^3/ul; Eosinophil % 1.1 % (0-6); Hematocrit 44 % (42-52); Lymphocyte % 14.3 % (25-47); Mean Corpuscular HGB Conc 34 g/dl (31-36); Mean Corpuscular Hemoglobin 29 pg (27-31); Mean Corpuscular Volume 84 fL (80-94); Mean Platelet Volume 7.5 um3 (7.4-10.4); Nucleated Red Blood Cells % 0.1; Platelet Count 335 10^3/ul (150-450); Red Blood Count 5.17 10^6/ul (4.00-5.40); Red Cell Distribution Width 16 % (10.5-15); White Blood Count 16.9 10^3/ul (3.5-10.8)
[2017-12-05 01:07] LABS: EGFR Non-African American 96.7 (>60)
[2017-12-05] MEDS ORDERED: Ketorolac INJ* 30 MG/ML 1 ML VIAL IV PUSH ONE (01:45)
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
[2017-12-05] MEDS ORDERED: Morphine ORAL.SOLN 10 mg* 2 MG/ML UDC 5 ml PO ONE (04:02)
[2017-12-05 04:21] LABS: Urine Appearance Clear; Urine Blood Negative (Negative); Urine Color Yellow; Urine Ketones Negative (Negative); Urine Protein Negative (Negative); Urine Specific Gravity 1.012 (1.010-1.030); Urine Urobilinogen Negative (Negative)
[2017-12-05 05:01] VITALS: BP 133/74
== END 2017-12-05 04:59 | disposition home or self-care (01) ==
LOC: ED 23:39
DX: M54.9 Dorsalgia, unspecified (principal); R10.84 Generalized abdominal pain; R11.2 Nausea with vomiting, unspecified; I10 Essential (primary) hypertension; F17.210 Nicotine dependence, cigarettes, uncomplicated
CPT/HCPCS: 36415; 80053; 81003; 83690; 85025; 86140; 96374; 99282; A9270-GY; J1885

== ENCOUNTER 2017-12-19 23:06 | Emergency (ER) | payer OTHER ==
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
[2017-12-20] MEDS ORDERED: oxyCODONE/Acetamin 5/325 MG* TAB PO ONE (00:38)
--- NOTE | 2017-12-20 01:47 | RAD ---
EXAM: CT Thoracic Spine Without Intravenous Contrast CLINICAL HISTORY: 52 years old, male; Pain; Pain in thoracic spine; Other: Unknown; Additional info: Injury, midline pain TECHNIQUE: Axial computed tomography images of the thoracic spine without intravenous contrast. All CT scans at this facility use at least one of these dose optimization techniques: automated exposure control; mA and/or kV adjustment per patient size (includes targeted exams where dose is matched to clinical indication); or iterative reconstruction. Coronal and sagittal reformatted images were created and reviewed. COMPARISON: [facility] CT SPINE THORACIC W/O 08/01/2015 1:15 PM FINDINGS: Vertebrae: Normal thoracic kyphosis without spondylolisthesis. Vertebral body heights are maintained. No fractures. Facet joints are normal. Discs/spinal canal/neural foramina: T1-T2:There is no disc space narrowing. No canal stenosis or foraminal narrowing. The facet joints are normal. T2-T3:There is no disc space narrowing. No canal stenosis or foraminal narrowing. The facet joints are normal. T3-T4:There is no disc space narrowing. No canal stenosis or foraminal narrowing. The facet joints are normal. T4-T5: Disc space loss with endplate osteophytes. No canal stenosis or foraminal narrowing. The facet joints are normal. T5-T6:Disc space loss with endplate osteophytes. No canal stenosis or foraminal narrowing. The facet joints are normal. T6-T7:Disc space loss with endplate osteophytes. No canal stenosis or foraminal narrowing. The facet joints are normal. T7-T8:Disc space loss with endplate osteophytes. . No canal stenosis or foraminal narrowing. The facet joints are normal. T8-T9:Disc space loss with endplate osteophytes. No canal stenosis or foraminal narrowing. The facet joints are normal. T9-T10:Disc space loss with endplate osteophytes. No canal stenosis or foraminal narrowing. The facet joints are normal. T10-T11:Disc space loss with endplate osteophytes. No canal stenosis or foraminal narrowing. The facet joints are normal. T11-T12:Disc space loss with endplate osteophytes. No canal stenosis or foraminal narrowing. The facet joints are normal. Soft tissues: Normal. No hernias. IMPRESSION: 1. No thoracic spine traumatic abnormalities. 2. Mild multilevel thoracic spondylopathy. To contact [facility] with a general question: Operations Center - [phone] For direct physician to physician contact: Physician Hotline - [phone] [facility] ([facility] Facility ID #[id number])
--- NOTE | 2017-12-20 01:50 | RAD ---
EXAM: CT Lumbar Spine Without Intravenous Contrast CLINICAL HISTORY: 52 years old, male; Pain; Low back pain; Additional info: Injury, midline pain TECHNIQUE: Axial computed tomography images of the lumbar spine without intravenous contrast. All CT scans at this facility use at least one of these dose optimization techniques: automated exposure control; mA and/or kV adjustment per patient size (includes targeted exams where dose is matched to clinical indication); or iterative reconstruction. Coronal and sagittal reformatted images were created and reviewed. COMPARISON: SP L WO CT SPINE LUMBAR W/O 08/01/2015 1:15 PM FINDINGS: Vertebrae: Normal lumbar lordosis without spondylolisthesis. Vertebral body heights are maintained. No fractures. Discs/spinal canal/neural foramina: L1-L2: Disc height loss with endplate osteophytes causing no canal stenosis.The facet joints demonstrate mild degenerative hypertrophy and sclerosis. No neural foraminal narrowing. L2-L3: Mild disc height loss with endplate osteophytes causing no canal stenosis.The facet joints demonstrate mild degenerative hypertrophy and sclerosis. No neural foraminal narrowing. L3-L4: Disc height loss with symmetric endplate osteophyte disc bulge complex causing no canal stenosis.The facet joints demonstrate mild degenerative hypertrophy and sclerosis. No neural foraminal narrowing. L4-L5: Symmetric disc bulge causing no canal stenosis. The facet joints are normal. No neural foraminal narrowing. L5-S1: Symmetric disc bulge causing no canal stenosis.The facet joints demonstrate mild degenerative hypertrophy and sclerosis. No neural foraminal narrowing. Soft tissues: Normal. No hernias. IMPRESSION: 1. No lumbar spine traumatic abnormalities. 2. Mild multilevel lumbar spondylopathy. To contact [facility] with a general question: [facility] - [phone] For direct physician to physician contact: Physician Hotline - [phone] [facility] ([facility] Facility ID #[id number])
[2017-12-20 03:03] VITALS: BP 161/112
== END 2017-12-20 03:03 | disposition home or self-care (01) ==
LOC: ED 23:06
DX: M51.34 Other intervertebral disc degeneration, thoracic region (principal); F17.210 Nicotine dependence, cigarettes, uncomplicated
CPT/HCPCS: 72128; 72131; 99282; A9270-GY

== ENCOUNTER 2018-02-02 21:07 | Emergency (ER) | payer OTHER ==
[2018-02-02] MEDS ORDERED: Famotidine TAB* 20 MG PO ONE (22:10)
[2018-02-02] MEDS ORDERED: diPHENhydraMINE PO* 50 MG PO ONE (22:10)
[2018-02-02] MEDS ORDERED: predniSONE TAB* 20 MG PO ONE (22:10)
[2018-02-02 22:33] VITALS: BP 0/0
--- NOTE | 2018-02-03 00:30 | ED ---
Skin Complaint - HPI Summary HPI Summary: Pt. is a 52 y.o male who presents to the ED for pruritic rash to bilateral legs x 4 days. Pt. states he has been taking benadryl with mild improvement. Pt. denies new soaps, detergents, travels, ect. No one else at home has rash. Pt. notes he finished antibx about a week ago but denies new medications. Pt. notes he did have a colonoscopy 2 days prior to rash starting. Pt. denies SOB, CP. Symptoms are mild in severity. No current modifying factors. - History of Current Complaint Chief Complaint: EDRashSkinAbscess Time Seen by Provider: 02/02/18 21:43 Stated Complaint: RASH Hx Obtained From: Patient Pain Intensity: 3 Pain Scale Used: 0-10 Numeric - Allergy/Home Medications Allergies/Adverse Reactions: Allergies Allergy/AdvReac Type Severity Reaction Status Date / Time bee venom protein (honey bee) Allergy Anaphylatic Verified 02/02/18 21:28 Shock shellfish derived Allergy Nausea And Verified 02/02/18 21:28 Vomiting PMH/Surg Hx/FS Hx/Imm Hx Previously Healthy: Yes Endocrine/Hematology History: Denies: Hx Diabetes, Hx Thyroid Disease Cardiovascular History: Reports: Hx Hypercholesterolemia, Hx Hypertension Denies: Hx Coronary Artery Disease, Hx Myocardial Infarction, Hx Valvular Heart Disease Respiratory History: Reports: Hx Asthma, Hx Sleep Apnea - evaluation for 04/2013 , Other Respiratory Problems/Disorders - current smoker Denies: Hx Chronic Obstructive Pulmonary Disease (COPD) GI History: Denies: Hx Ulcer Musculoskeletal History: Reports: Other Musculoskeletal History - recent onset generalized muscle pain Psychiatric History: Reports: Hx Anxiety, Hx Depression Denies: Hx of Violent Episodes Against Others - Surgical History Surgery Procedure, Year, and Place: APPENDECTOMY - Immunization History Date of Tetanus Vaccine: in last couple years Infectious Disease History: No Infectious Disease History: Denies: Hx Hepatitis, Hx Human Immunodeficiency Virus (HIV), Traveled Outside the [place] in Last 30 Days - Family History Known Family History: Positive: None, Hypertension Negative: Cardiac Disease, Diabetes Family History: R & n/C - Social History Occupation: Unemployed Lives: With Family Alcohol Use: None Alcohol Amount: 4 days per week, 2-3 each day Substance Use Type: Reports: None Hx Tobacco Use: Yes Smoking Status (MU): Light Every Day Tobacco Smoker Type: Cigarettes Amount Used/How Often: 1ppd Have You Smoked in the Last Year: Yes Review of Systems Positive: Rash All Other Systems Reviewed And Are Negative: Yes Physical Exam Triage Information Reviewed: Yes Vital Signs On Initial Exam: Initial Vitals Temp Pulse Resp BP Pulse Ox 99.8 F 111 18 120/98 96 02/02/18 21:25 02/02/18 21:25 02/02/18 21:25 02/02/18 21:25 02/02/18 21:25 Vital Signs Reviewed: Yes Appearance: Positive: Well-Appearing - Pt. sitting in chair in NAD. present. Skin: Positive: Warm, Dry, Other - Diffuse urticaria noted to bilateral legs. Blanchable. Negative nikolsky sign. Head/Face: Positive: Normal Head/Face Inspection Eyes: Positive: Normal, EOMI Neck: Positive: Supple Neurological: Positive: Normal, CN Intact II-III Psychiatric: Positive: Affect/Mood Appropriate Diagnostics - Vital Signs Vital Signs Temp Pulse Resp BP Pulse Ox 02/02/18 22:31 0 F 0 0 0/0 0 02/02/18 21:25 99.8 F 111 18 120/98 96 - Laboratory Lab Statement: Any lab studies that have been ordered have been reviewed, and results considered in the medical decision making process. Course/Dx - Course Course Of Treatment: Pt. presenting for diffuse urticaria to bilateral legs. Will treat with prednisone, bendyrl and pepcid. Advised cool compresses. To f.u with PCP if rash persist. To return to eR if sxs change or worsen. Pt. understands and agrees with plan. - Differential Diagnoses - Skin Complaint Differential Diagnoses: Abscess, Cellulitis, Contact Dermatitis, Drug Rash, Eczema, Tinea, Urticaria - Diagnoses Provider Diagnoses: Urticaria Discharge - Sign-Out/Discharge Documenting (check all that apply): Patient Departure - Discharge Plan Condition: Good Disposition: HOME Prescriptions: Famotidine TAB 40 MG(NF) [Pepcid TAB 40 MG(NF)] 40 mg PO DAILY #5 tab predniSONE TAB* [Deltasone 20 MG TAB*] 40 mg PO DAILY #10 tab Patient Education Materials: Urticaria (ED) Referrals: Mis SOUSA,Cely Parker [Primary Care Provider] - Additional Instructions: Schedule a follow up appointment with your PCP if rash persist Take medication as directed Continue over the counter benadryl as directed Apply cool compresses Avoid itching skin Return to ER if symptoms change or worsen - Billing Disposition and Condition Condition: GOOD Disposition: Home
== END 2018-02-02 22:31 | disposition home or self-care (01) ==
LOC: ED 21:07
DX: L50.9 Urticaria, unspecified (principal); Z91.030 Bee allergy status; Z91.013 Allergy to seafood; F17.210 Nicotine dependence, cigarettes, uncomplicated
CPT/HCPCS: 99282; A9270-GY; J7512

== ENCOUNTER 2018-03-12 15:27 | Inpatient (IN) | payer OTHER ==
[2018-03-12] MEDS ORDERED: Morphine VIAL* 4 MG/ML VIAL (1 ml vial) IV ONE (18:11)
[2018-03-12 18:31] LABS: ABS Basophils 0.1 10^3/ul (0-0.2); ABS Eosinophils 0.2 10^3/ul (0-0.6); ABS Lymphocytes 1.8 10^3/ul (1.0-4.8); ABS Monocytes 0.6 10^3/ul (0-0.8); ABS Neutrophils 10.5 10^3/ul (1.5-7.7); ABS Nucleated RBC 0 10^3/ul; Eosinophil % 1.7 %; Hematocrit 45 % (42-52); Hemoglobin 14.9 g/dl (14.0-18.0); Lymphocyte % 13.4 %; Mean Corpuscular HGB Conc 33 g/dl (31-36); Mean Corpuscular Hemoglobin 28 pg (27-31); Mean Corpuscular Volume 85 fL (80-94); Mean Platelet Volume 7.3 fL (7.4-10.4); Nucleated Red Blood Cells % 0; Platelet Count 376 10^3/ul (150-450); Red Blood Count 5.35 10^6/ul (4.00-5.40); Red Cell Distribution Width 16 % (10.5-15); White Blood Count 13.2 10^3/ul (3.5-10.8)
[2018-03-12 18:47] LABS: Albumin 4.4 g/dL (3.2-5.2); Albumin/Globulin Ratio 1.4 (1-3); BUN/Creatinine Ratio 10.3 (8-20); C Reactive Protein 45.35 mg/L (<8.01); Calcium 9.9 mg/dL (8.6-10.3); EGFR Non-African American 73.2 (>60); Globulin 3.1 g/dL (2-4); Potassium 3.9 mmol/L (3.5-5.0); Total Bilirubin 0.3 mg/dL (0.2-1.0); Total Protein 7.5 g/dL (6.4-8.9)
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
[2018-03-12] MEDS ORDERED: Vancomycin(*) 2,000 MG in NS 0.9% 500 ML* 500 ML IVPB ONE (23:31)
[2018-03-12] MEDS ORDERED: Acetaminophen TAB* 325 MG PO PRN (23:37)
[2018-03-12] MEDS ORDERED: Ondansetron INJ* 2 MG/ML VIAL IV PRN (23:41)
[2018-03-12] MEDS ORDERED: Vancomycin per Pharmacy* NOTE FOLLOW UP SCH (23:45)
[2018-03-12] MEDS ORDERED: Polyethylene Glycol 3350* 17 GM PACKET PO PRN (23:53)
[2018-03-13] MEDS ORDERED: NS 0.9% 500 ML* 500 ML ONE (00:19)
[2018-03-13] MEDS: Cefepime 2 GM in Dextrose(*) 2 GM/50 ML BAG IV SCH ×3 (00:24→23:37)
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
[2018-03-13] MEDS: Heparin VIAL(*) 5000 UNITS/ML VIAL (FIVE THOUSAND) SUBCUT SCH ×3 (05:18→22:14)
[2018-03-13] MEDS: PTO: Fluticasone/Vilanterol MDI(NF) 200/25 MDI INH SCH ×2 (07:24→09:37)
[2018-03-13] MEDS: UMECLIDINIUM BROMIDE INH SCH ×2 (07:24→09:37)
[2018-03-13] MEDS: Morphine VIAL* 4 MG/ML VIAL (1 ml vial) IV PRN ×3 (08:46→20:14)
[2018-03-13] MEDS: Benzonatate CAP* 100 MG PO SCH ×3 (08:47→20:20)
[2018-03-13] MEDS: BuPROPion XL* 150 MG TAB.XL PO SCH (08:47)
[2018-03-13] MEDS: Docusate CAP* 100 MG PO SCH (08:47)
[2018-03-13] MEDS: Losartan TAB* 25 MG PO SCH (08:47)
[2018-03-13] MEDS: Hydrochlorothiazide TAB* 25 MG PO SCH (08:47)
[2018-03-13] MEDS: Venlafaxine EXT RELEASE CAP* 75 MG PO SCH ×2 (08:47→09:07)
[2018-03-13] MEDS: Omeprazole CAP* 20 MG PO SCH ×2 (08:47→20:18)
[2018-03-13] MEDS: amLODIPine TAB* 5 MG PO SCH (08:47)
[2018-03-13] MEDS: Vancomycin(*) 1,000 MG in NS 0.9% 250 ML* 250 ML IVPB SCH ×3 (08:48→20:14)
[2018-03-13] MEDS: ALPRAZolam TAB* 0.5 MG PO PRN ×2 (08:56→22:15)
[2018-03-13] MEDS ORDERED: Losartan/HCTZ 100/25 (NF) TAB PO SCH (09:00)
[2018-03-13] MEDS: VENLAFAXINE PO SCH (09:32)
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
--- NOTE | 2018-03-13 14:59 | PN ---
Subjective Date of Service: 03/13/18 Interval History: Patient is having back pain without neurological deficits or radiation into his lower extremities. Patient denies F/C, N/V, abdominal pain, diarrhea, dysuria, CP, SOB, dizziness, passing out, or other pain. Patient recently had a tooth pulled. Family History: Unchanged from Admission Social History: Unchanged from Admission Past Medical History: Unchanged from Admission Objective Active Medications: Acetaminophen (Tylenol Tab*) 650 mg PO Q6H PRN PRN Reason: PAIN Alprazolam (Xanax Tab*) 1 mg PO Q8H PRN PRN Reason: ANXIETY Last Admin: 03/13/18 08:56 Dose: 1 mg Amlodipine Besylate (Norvasc Tab*) 10 mg PO DAILY [facility] Last Admin: 03/13/18 08:47 Dose: 10 mg Benzonatate (Tessalon Cap*) 100 mg PO TID [facility] Last Admin: 03/13/18 13:33 Dose: 100 mg Bupropion HCl (Wellbutrin Xl *) 150 mg PO DAILY [facility] Last Admin: 03/13/18 08:47 Dose: 150 mg Docusate Sodium (Colace Cap*) 200 mg PO DAILY [facility] Last Admin: 03/13/18 08:47 Dose: 200 mg Fluticasone/Vilanterol (Breo Ellipta Mdi 200/25(Nf)) 1 puff INH QAM [facility] Last Admin: 03/13/18 09:37 Dose: 1 puff Heparin Sodium (Porcine) (Heparin Vial(*)) 5,000 units SUBCUT Q8HR [facility] Last Admin: 03/13/18 13:33 Dose: 5,000 units Hydrochlorothiazide (Hydrodiuril Tab*) 25 mg PO DAILY [facility] Last Admin: 03/13/18 08:47 Dose: 25 mg Cefepime HCl (Maxipime 2 Gm In Dextrose Duplex (*)) 2 gm in 50 mls @ 100 mls/ hr IV Q12H [facility] Last Admin: 03/13/18 12:02 Dose: 100 mls/hr Vancomycin HCl 1,000 mg/ (Sodium Chloride) 250 mls @ 166.667 mls/hr IVPB Q6H [facility] Last Admin: 03/13/18 13:32 Dose: 166.667 mls/hr Losartan Potassium (Cozaar Tab*) 100 mg PO DAILY [facility] Last Admin: 03/13/18 08:47 Dose: 100 mg Morphine Sulfate (Morphine Vial*) 1 mg IV Q4H PRN PRN Reason: PAIN - MILD Last Admin: 03/13/18 08:46 Dose: 1 mg Pto: (Umeclidinium [place] [Incruse Ellipta] 1 Inh) 1 inh INH DAILY [facility] Last Admin: 03/13/18 09:37 Dose: 1 inh Omeprazole (Prilosec Cap*) 20 mg PO BID [facility] Last Admin: 03/13/18 08:47 Dose: 20 mg Ondansetron HCl (Zofran Inj*) 4 mg IV Q6H PRN PRN Reason: NAUSEA Oxycodone/Acetaminophen (Percocet 5/325 Tab*) 1 tab PO Q4H PRN PRN Reason: PAIN Oxycodone/Acetaminophen (Percocet 5/325 Tab*) 2 tab PO Q4H PRN PRN Reason: PAIN Pharmacy Consult (Vancomycin Per Pharmacy*) 1 note FOLLOW UP .VANC PER PHARMACY [facility] Pharmacy Profile Note (Vancomycin Trough Check) 1 note FOLLOW UP 2000 ONE Stop: 03/13/18 20:01 Polyethylene Glycol/Electrolytes (Miralax*) 17 gm PO DAILY PRN PRN Reason: CONSTIPATION Senna (Senokot Tab*) 2 tab PO BEDTIME [facility] Venlafaxine HCl (Effexor Xr Cap (Nf)) 225 mg PO DAILY [facility] Last Admin: 03/13/18 09:32 Dose: 225 mg Vital Signs - 8 hr 03/13/18 03/13/18 03/13/18 07:32 08:00 08:46 Temperature 96.3 F Pulse Rate 65 Respiratory 18 16 16 Rate Blood Pressure 114/74 (mmHg) O2 Sat by Pulse 97 Oximetry 03/13/18 03/13/18 03/13/18 08:56 11:53 12:02 Temperature 97.7 F Pulse Rate 73 Respiratory 16 16 16 Rate Blood Pressure 124/64 (mmHg) O2 Sat by Pulse 98 Oximetry Oxygen Devices in Use Now: None Appearance: Patient is a 52yo male who appears stated age and is sitting in the bed in NAD. Eyes: No Scleral Icterus, PERRLA Ears/Nose/Mouth/Throat: NL Teeth, Lips, Gums, Clear Oropharnyx, Mucous Membranes Moist Neck: NL Appearance and Movements; NL JVP, Trachea Midline Respiratory: Symmetrical Chest Expansion and Respiratory Effort, Clear to Auscultation Cardiovascular: NL Sounds; No Murmurs; No JVD, RRR, No Edema Abdominal: NL Sounds; No Tenderness; No Distention, No Hepatosplenomegaly Lymphatic: No Cervical Adenopathy Extremities: No Edema, No Clubbing, Cyanosis Skin: No Rash or Ulcers, No Nodules or Sclerosis Neurological: Alert and Oriented x 3, NL Sensation, NL Muscle Strength and Tone , - - CN II-XII intact. Normal Reflexes Result Diagrams: 03/12/18 18:17 03/12/18 18:17 Additional Lab and Data: Lab Results 03/12/18 03/12/18 03/12/18 Range/Units 18:17 18:17 18:17 WBC 13.2 H (3.5-10.8) 10^3/ul RBC 5.35 (4.00-5.40) 10^6/ul Hgb 14.9 (14.0-18.0) g/dl Hct 45 (42-52) % MCV 85 (80-94) fL MCH 28 (27-31) pg MCHC 33 (31-36) g/dl RDW 16 H (10.5-15) % Plt Count 376 (150-450) 10^3/ul MPV 7.3 L (7.4-10.4) fL Neut % (Auto) 79.4 % Lymph % (Auto) 13.4 % [place] % (Auto) 4.5 % Eos % (Auto) 1.7 % Baso % (Auto) 1.0 % Absolute Neuts (auto) 10.5 H (1.5-7.7) 10^3/ul Absolute Lymphs (auto) 1.8 (1.0-4.8) 10^3/ul Absolute Monos (auto) 0.6 (0-0.8) 10^3/ul Absolute Eos (auto) 0.2 (0-0.6) 10^3/ul Absolute Basos (auto) 0.1 (0-0.2) 10^3/ul Absolute Nucleated RBC 0 10^3/ul Nucleated RBC % 0 ESR Cancelled Sodium 137 (135-145) mmol/L Potassium 3.9 (3.5-5.0) mmol/L Chloride 103 (101-111) mmol/L Carbon Dioxide 27 (22-32) mmol/L Anion Gap 7 (2-11) mmol/L BUN 11 (6-24) mg/dL Creatinine 1.07 (0.67-1.17) mg/dL Est GFR ( Amer) 88.5 (>60) Est GFR (Non-Af Amer) 73.2 (>60) BUN/Creatinine Ratio 10.3 (8-20) Glucose 117 H (70-100) mg/dL Lactic Acid 1.5 (0.5-2.0) mmol/L Calcium 9.9 (8.6-10.3) mg/dL Total Bilirubin 0.30 (0.2-1.0) mg/dL AST 15 (13-39) U/L ALT 25 (7-52) U/L Alkaline Phosphatase 118 H (34-104) U/L C-Reactive Protein 45.35 H (<8.01) mg/L Total Protein 7.5 (6.4-8.9) g/dL Albumin 4.4 (3.2-5.2) g/dL Globulin 3.1 (2-4) g/dL Albumin/Globulin Ratio 1.4 (1-3) Assess/Plan/Problems-Billing Assessment: Patient is a 52yo male with a PMH for Recent extensive bravo, HTN, COPD, who was recently diagnosed with Paravertebral abscess and is currently undergoing treatment with IV antibiotics. - Patient Problems (1) Abscess Current Visit: Yes Status: Acute Code(s): L02.91 - CUTANEOUS ABSCESS, UNSPECIFIED SNOMED Code(s): 460430027 Comment: - Paravertebral abscess on MRI with back pain, without neurological deficits - Appreciate Neurosurgical Input - Recommends conservative treatment - Pending ID consult - BC pending - No IVDA, possibly from recent tooth extraction, was covered with PCN at the time - On Vancomycin and Cefepime (2) HTN (hypertension) Current Visit: Yes Status: Acute Code(s): I10 - ESSENTIAL (PRIMARY) HYPERTENSION SNOMED Code(s): 99377196 Comment: - Normotensive, Continue Amlodipine, losartan, and HCTZ (3) Depression Current Visit: Yes Status: Acute Code(s): F32.9 - MAJOR DEPRESSIVE DISORDER , SINGLE EPISODE, UNSPECIFIED SNOMED Code(s): 54123605 Comment: - Continue Wellbutrin and Venlafaxine (4) DVT prophylaxis Current Visit: Yes Status: Acute Code(s): HTI5304 - SNOMED Code(s): 874006847 Comment: - Heparin SubQ (5) Patient is full code Current Visit: Yes Status: Acute Code(s): Z78.9 - OTHER SPECIFIED HEALTH STATUS SNOMED Code(s): 821460598 Status and Disposition: Inpatient for IV antibiotics.
[2018-03-13] MEDS ORDERED: Mouth Piece, Nicotine* 1 EACH CARTRIDGE INH ONE (17:00)
[2018-03-13] MEDS: Nicotine Inhaler* 10 MG AMP INH PRN (17:03)
[2018-03-13] MEDS ORDERED: Vancomycin Trough Check NOTE FOLLOW UP ONE (20:00)
[2018-03-13] MEDS: Senna TAB PO SCH (20:20)
[2018-03-14] MEDS: Vancomycin(*) 1,000 MG in NS 0.9% 250 ML* 250 ML IVPB SCH ×3 (02:04→09:04)
[2018-03-14] MEDS: Heparin VIAL(*) 5000 UNITS/ML VIAL (FIVE THOUSAND) SUBCUT SCH ×3 (05:19→22:45)
[2018-03-14] MEDS ORDERED: Vancomycin Trough Check NOTE FOLLOW UP ONE (07:30)
[2018-03-14 08:20] LABS: BUN/Creatinine Ratio 11.7 (8-20); Calcium 9.3 mg/dL (8.6-10.3); EGFR Non-African American 76.4 (>60); Magnesium 2.4 mg/dL (1.9-2.7); Potassium 4.1 mmol/L (3.5-5.0)
[2018-03-14 08:22] LABS: ABS Basophils 0 10^3/ul (0-0.2); ABS Eosinophils 0.3 10^3/ul (0-0.6); ABS Lymphocytes 1.6 10^3/ul (1.0-4.8); ABS Monocytes 0.6 10^3/ul (0-0.8); ABS Neutrophils 4.8 10^3/ul (1.5-7.7); ABS Nucleated RBC 0 10^3/ul; Hematocrit 43 % (42-52); Hemoglobin 14.3 g/dl (14.0-18.0); Lymphocyte % 21.5 %; Mean Corpuscular HGB Conc 33 g/dl (31-36); Mean Corpuscular Hemoglobin 28 pg (27-31); Mean Corpuscular Volume 84 fL (80-94); Mean Platelet Volume 7.4 fL (7.4-10.4); Nucleated Red Blood Cells % 0.2; Platelet Count 331 10^3/ul (150-450); Red Blood Count 5.11 10^6/ul (4.00-5.40); Red Cell Distribution Width 16 % (10.5-15); White Blood Count 7.3 10^3/ul (3.5-10.8)
[2018-03-14] MEDS: UMECLIDINIUM BROMIDE INH SCH (08:44)
[2018-03-14] MEDS: PTO: Fluticasone/Vilanterol MDI(NF) 200/25 MDI INH SCH (08:47)
[2018-03-14] MEDS ORDERED: Vancomycin(*) 1,250 MG in NS 0.9% 250 ML* 250 ML IVPB SCH (09:00)
[2018-03-14] MEDS: Morphine VIAL* 4 MG/ML VIAL (1 ml vial) IV PRN ×3 (09:34→20:27)
[2018-03-14] MEDS: BuPROPion XL* 150 MG TAB.XL PO SCH (09:38)
[2018-03-14] MEDS: Losartan TAB* 25 MG PO SCH (09:38)
[2018-03-14] MEDS: Hydrochlorothiazide TAB* 25 MG PO SCH (09:39)
[2018-03-14] MEDS: Docusate CAP* 100 MG PO SCH (09:39)
[2018-03-14] MEDS: ALPRAZolam TAB* 0.5 MG PO PRN ×2 (09:39→20:26)
[2018-03-14] MEDS: amLODIPine TAB* 5 MG PO SCH (09:39)
[2018-03-14] MEDS: Vancomycin(*) 1,250 MG in NS 0.9% 250 ML* 250 ML IVPB SCH ×2 (09:40→17:05)
[2018-03-14] MEDS: Omeprazole CAP* 20 MG PO SCH ×2 (09:40→20:26)
[2018-03-14] MEDS: VENLAFAXINE PO SCH (09:40)
[2018-03-14] MEDS: Benzonatate CAP* 100 MG PO SCH ×3 (09:40→20:26)
[2018-03-14] MEDS: Cefepime 2 GM in Dextrose(*) 2 GM/50 ML BAG IV SCH (11:31)
--- NOTE | 2018-03-14 11:41 | PN ---
Subjective Date of Service: 03/14/18 Interval History: Patient is feeling well today. Patient complains of a mild increase in his back pain. Patient states it radiates into his B/L upper legs when he strains to have a bowel movement. Patient denies CP, SOB, F/C, N/V, Abdominal pain, diarrhea, dizziness on standing, or other pain. Patient does not know if he got antibiotics at [facility] before he left. Family History: Unchanged from Admission Social History: Unchanged from Admission Past Medical History: Unchanged from Admission Objective Active Medications: Acetaminophen (Tylenol Tab*) 650 mg PO Q6H PRN PRN Reason: PAIN Alprazolam (Xanax Tab*) 1 mg PO Q8H PRN PRN Reason: ANXIETY Last Admin: 03/14/18 09:39 Dose: 1 mg Amlodipine Besylate (Norvasc Tab*) 10 mg PO DAILY [facility] Last Admin: 03/14/18 09:39 Dose: 10 mg Benzonatate (Tessalon Cap*) 100 mg PO TID [facility] Last Admin: 03/14/18 09:40 Dose: 100 mg Bupropion HCl (Wellbutrin Xl *) 150 mg PO DAILY [facility] Last Admin: 03/14/18 09:38 Dose: 150 mg Docusate Sodium (Colace Cap*) 200 mg PO DAILY [facility] Last Admin: 03/14/18 09:39 Dose: 200 mg Fluticasone/Vilanterol (Breo Ellipta Mdi 200/25(Nf)) 1 puff INH QAM [facility] Last Admin: 03/14/18 08:47 Dose: 1 puff Heparin Sodium (Porcine) (Heparin Vial(*)) 5,000 units SUBCUT Q8HR [facility] Last Admin: 03/14/18 05:19 Dose: 5,000 units Hydrochlorothiazide (Hydrodiuril Tab*) 25 mg PO DAILY [facility] Last Admin: 03/14/18 09:39 Dose: 25 mg Cefepime HCl (Maxipime 2 Gm In Dextrose Duplex (*)) 2 gm in 50 mls @ 100 mls/ hr IV Q12H [facility] Last Admin: 03/14/18 11:31 Dose: 100 mls/hr Vancomycin HCl 1,250 mg/ (Sodium Chloride) 250 mls @ 166.667 mls/hr IVPB 0200, 1000,1800 [facility] Last Admin: 03/14/18 09:40 Dose: 166.667 mls/hr Losartan Potassium (Cozaar Tab*) 100 mg PO DAILY [facility] Last Admin: 03/14/18 09:38 Dose: 100 mg Morphine Sulfate (Morphine Vial*) 1 mg IV Q4H PRN PRN Reason: PAIN - MILD Last Admin: 03/14/18 09:34 Dose: 1 mg Nicotine (Nicotine Inhaler*) 10 mg INH Q2H PRN PRN Reason: CRAVING Last Admin: 03/13/18 17:03 Dose: 10 mg Pto: (Umeclidinium [place] [Incruse Ellipta] 1 Inh) 1 inh INH DAILY [facility] Last Admin: 03/14/18 08:44 Dose: 1 inh Omeprazole (Prilosec Cap*) 20 mg PO BID [facility] Last Admin: 03/14/18 09:40 Dose: 20 mg Ondansetron HCl (Zofran Inj*) 4 mg IV Q6H PRN PRN Reason: NAUSEA Oxycodone/Acetaminophen (Percocet 5/325 Tab*) 1 tab PO Q4H PRN PRN Reason: PAIN Oxycodone/Acetaminophen (Percocet 5/325 Tab*) 2 tab PO Q4H PRN PRN Reason: PAIN Pharmacy Consult (Vancomycin Per Pharmacy*) 1 note FOLLOW UP .VANC PER PHARMACY [facility] Pharmacy Profile Note (Vancomycin Trough Check) 1 note FOLLOW UP 929 ONE Stop: 03/16/18 09:31 Polyethylene Glycol/Electrolytes (Miralax*) 17 gm PO DAILY PRN PRN Reason: CONSTIPATION Senna (Senokot Tab*) 2 tab PO BEDTIME [facility] Last Admin: 03/13/18 20:20 Dose: 2 tab Venlafaxine HCl (Effexor Xr Cap (Nf)) 225 mg PO DAILY [facility] Last Admin: 03/14/18 09:40 Dose: 225 mg Vital Signs - 8 hr 03/14/18 03/14/18 03/14/18 07:44 08:00 08:47 Temperature 97.6 F Pulse Rate 67 76 Respiratory 18 16 Rate Blood Pressure 111/59 (mmHg) O2 Sat by Pulse 93 98 Oximetry 03/14/18 03/14/18 03/14/18 09:34 09:39 11:32 Temperature Pulse Rate Respiratory 18 16 16 Rate Blood Pressure (mmHg) O2 Sat by Pulse Oximetry 03/14/18 11:33 Temperature Pulse Rate Respiratory 20 Rate Blood Pressure (mmHg) O2 Sat by Pulse Oximetry Oxygen Devices in Use Now: None Appearance: Patient is a 52yo male who appears stated age and is sitting in the bed in NAD. Eyes: No Scleral Icterus, PERRLA Ears/Nose/Mouth/Throat: NL Teeth, Lips, Gums, Clear Oropharnyx, Mucous Membranes Moist Neck: NL Appearance and Movements; NL JVP, Trachea Midline Respiratory: Symmetrical Chest Expansion and Respiratory Effort, Clear to Auscultation Cardiovascular: NL Sounds; No Murmurs; No JVD, RRR, No Edema Abdominal: NL Sounds; No Tenderness; No Distention, No Hepatosplenomegaly Lymphatic: No Cervical Adenopathy Extremities: No Edema, No Clubbing, Cyanosis Skin: No Rash or Ulcers, No Nodules or Sclerosis Neurological: Alert and Oriented x 3, NL Sensation, NL Muscle Strength and Tone , - - CN II-XII intact. Normal LE Reflexes. Result Diagrams: 03/14/18 07:41 03/14/18 07:41 Additional Lab and Data: Lab Results 03/12/18 03/12/18 03/12/18 Range/Units 18:17 18:17 18:17 WBC 13.2 H (3.5-10.8) 10^3/ul RBC 5.35 (4.00-5.40) 10^6/ul Hgb 14.9 (14.0-18.0) g/dl Hct 45 (42-52) % MCV 85 (80-94) fL MCH 28 (27-31) pg MCHC 33 (31-36) g/dl RDW 16 H (10.5-15) % Plt Count 376 (150-450) 10^3/ul MPV 7.3 L (7.4-10.4) fL Neut % (Auto) 79.4 % Lymph % (Auto) 13.4 % [place] % (Auto) 4.5 % Eos % (Auto) 1.7 % Baso % (Auto) 1.0 % Absolute Neuts (auto) 10.5 H (1.5-7.7) 10^3/ul Absolute Lymphs (auto) 1.8 (1.0-4.8) 10^3/ul Absolute Monos (auto) 0.6 (0-0.8) 10^3/ul Absolute Eos (auto) 0.2 (0-0.6) 10^3/ul Absolute Basos (auto) 0.1 (0-0.2) 10^3/ul Absolute Nucleated RBC 0 10^3/ul Nucleated RBC % 0 ESR Cancelled Sodium 137 (135-145) mmol/L Potassium 3.9 (3.5-5.0) mmol/L Chloride 103 (101-111) mmol/L Carbon Dioxide 27 (22-32) mmol/L Anion Gap 7 (2-11) mmol/L BUN 11 (6-24) mg/dL Creatinine 1.07 (0.67-1.17) mg/dL Est GFR ( Amer) 88.5 (>60) Est GFR (Non-Af Amer) 73.2 (>60) BUN/Creatinine Ratio 10.3 (8-20) Glucose 117 H (70-100) mg/dL Lactic Acid 1.5 (0.5-2.0) mmol/L Calcium 9.9 (8.6-10.3) mg/dL Total Bilirubin 0.30 (0.2-1.0) mg/dL AST 15 (13-39) U/L ALT 25 (7-52) U/L Alkaline Phosphatase 118 H (34-104) U/L C-Reactive Protein 45.35 H (<8.01) mg/L Total Protein 7.5 (6.4-8.9) g/dL Albumin 4.4 (3.2-5.2) g/dL Globulin 3.1 (2-4) g/dL Albumin/Globulin Ratio 1.4 (1-3) Microbiology and Other Data: Microbiology 03/12/18 18:17 Aerobic Blood Culture - Preliminary Blood Venous No Growth Day 1 Anaerobic Blood Culture - Preliminary No Growth Day 1 Assess/Plan/Problems-Billing Assessment: Patient is a 52yo male with a PMH for Recent extensive bravo, HTN, COPD, who was recently diagnosed with Paravertebral abscess and is currently undergoing treatment with IV antibiotics. - Patient Problems (1) Abscess Current Visit: Yes Status: Acute Code(s): L02.91 - CUTANEOUS ABSCESS, UNSPECIFIED SNOMED Code(s): 932486212 Comment: - Paravertebral abscess on MRI with back pain, without neurological deficits - Appreciate Neurosurgical Input - Recommends conservative treatment - Pending ID consult - BC negative to date. - No IVDA, possibly from recent tooth extraction, was covered with PCN at the time - On Vancomycin and Cefepime - Blood Cultures Negative, Would be dangerous biopsy with proximity of aorta. - Will attempt to get Culture data if available from [facility]. - Pain control with Mobic, Tylenol, Oxycodone and Morphine for breakthrough pain. (2) HTN (hypertension) Current Visit: Yes Status: Acute Code(s): I10 - ESSENTIAL (PRIMARY) HYPERTENSION SNOMED Code(s): 44425094 Comment: - Normotensive, Continue Amlodipine, losartan, and HCTZ (3) Depression Current Visit: Yes Status: Acute Code(s): F32.9 - MAJOR DEPRESSIVE DISORDER , SINGLE EPISODE, UNSPECIFIED SNOMED Code(s): 09396097 Comment: - Continue Wellbutrin and Venlafaxine (4) DVT prophylaxis Current Visit: Yes Status: Acute Code(s): HHF4929 - SNOMED Code(s): 881442147 Comment: - Heparin SubQ (5) Patient is full code Current Visit: Yes Status: Acute Code(s): Z78.9 - OTHER SPECIFIED HEALTH STATUS SNOMED Code(s): 691607551 Status and Disposition: Inpatient for IV antibiotics.
[2018-03-14] MEDS: oxyCODONE/Acetamin 5/325 MG* TAB PO PRN (13:27)
[2018-03-14] MEDS: Senna TAB PO SCH (20:25)
[2018-03-14] MEDS: Nicotine Inhaler* 10 MG AMP INH PRN (22:50)
[2018-03-15] MEDS: Cefepime 2 GM in Dextrose(*) 2 GM/50 ML BAG IV SCH ×2 (00:37→13:05)
[2018-03-15] MEDS: Morphine VIAL* 4 MG/ML VIAL (1 ml vial) IV PRN ×4 (00:37→20:30)
[2018-03-15] MEDS: Vancomycin(*) 1,250 MG in NS 0.9% 250 ML* 250 ML IVPB SCH ×3 (01:54→17:05)
[2018-03-15] MEDS: Heparin VIAL(*) 5000 UNITS/ML VIAL (FIVE THOUSAND) SUBCUT SCH ×3 (06:24→21:23)
[2018-03-15] MEDS: PTO: Fluticasone/Vilanterol MDI(NF) 200/25 MDI INH SCH (07:41)
[2018-03-15] MEDS: UMECLIDINIUM BROMIDE INH SCH (07:41)
[2018-03-15] MEDS: amLODIPine TAB* 5 MG PO SCH (10:08)
[2018-03-15] MEDS: Hydrochlorothiazide TAB* 25 MG PO SCH (10:08)
[2018-03-15] MEDS: Docusate CAP* 100 MG PO SCH (10:08)
[2018-03-15] MEDS: Losartan TAB* 25 MG PO SCH (10:08)
[2018-03-15] MEDS: Benzonatate CAP* 100 MG PO SCH ×3 (10:09→21:20)
[2018-03-15] MEDS: ALPRAZolam TAB* 0.5 MG PO PRN ×2 (10:09→21:21)
[2018-03-15] MEDS: Omeprazole CAP* 20 MG PO SCH ×2 (10:09→21:20)
[2018-03-15] MEDS: VENLAFAXINE PO SCH (10:20)
[2018-03-15] MEDS: BuPROPion XL* 150 MG TAB.XL PO SCH (10:20)
[2018-03-15] MEDS: oxyCODONE/Acetamin 5/325 MG* TAB PO PRN ×2 (13:08→22:46)
--- NOTE | 2018-03-15 14:17 | PN ---
Subjective Date of Service: 03/15/18 Interval History: Patient has persistent back pain. Patient is having BMs regularly. Patient denies F/C, N/V, saddle anesthesia, abdominal pain, diarrhea, CP, SOB, dizziness , or other pain. Family History: Unchanged from Admission Social History: Unchanged from Admission Past Medical History: Unchanged from Admission Objective Active Medications: Acetaminophen (Tylenol Tab*) 650 mg PO Q6H PRN PRN Reason: PAIN Alprazolam (Xanax Tab*) 1 mg PO Q8H PRN PRN Reason: ANXIETY Last Admin: 03/15/18 10:09 Dose: 1 mg Amlodipine Besylate (Norvasc Tab*) 10 mg PO DAILY [facility] Last Admin: 03/15/18 10:08 Dose: 10 mg Benzonatate (Tessalon Cap*) 100 mg PO TID [facility] Last Admin: 03/15/18 13:05 Dose: 100 mg Bupropion HCl (Wellbutrin Xl *) 150 mg PO BID [facility] Docusate Sodium (Colace Cap*) 200 mg PO DAILY [facility] Last Admin: 03/15/18 10:08 Dose: 200 mg Fluticasone/Vilanterol (Breo Ellipta Mdi 200/25(Nf)) 1 puff INH QAM [facility] Last Admin: 03/15/18 07:41 Dose: 1 puff Heparin Sodium (Porcine) (Heparin Vial(*)) 5,000 units SUBCUT Q8HR [facility] Last Admin: 03/15/18 13:05 Dose: 5,000 units Hydrochlorothiazide (Hydrodiuril Tab*) 25 mg PO DAILY [facility] Last Admin: 03/15/18 10:08 Dose: 25 mg Cefepime HCl (Maxipime 2 Gm In Dextrose Duplex (*)) 2 gm in 50 mls @ 100 mls/ hr IV Q12H [facility] Last Admin: 03/15/18 13:05 Dose: 100 mls/hr Vancomycin HCl 1,250 mg/ (Sodium Chloride) 250 mls @ 166.667 mls/hr IVPB 0200, 1000,1800 [facility] Last Admin: 03/15/18 10:02 Dose: 166.667 mls/hr Metronidazole/Sodium Chloride (Flagyl 500 Mg Ivpb*) 500 mg in 100 mls @ 100 mls /hr IVPB Q8H [facility] Losartan Potassium (Cozaar Tab*) 100 mg PO DAILY [facility] Last Admin: 03/15/18 10:08 Dose: 100 mg Morphine Sulfate (Morphine Vial*) 1 mg IV Q4H PRN PRN Reason: PAIN - MILD Last Admin: 03/15/18 10:19 Dose: 1 mg Nicotine (Nicotine Inhaler*) 10 mg INH Q2H PRN PRN Reason: CRAVING Last Admin: 03/14/18 22:50 Dose: 10 mg Pto: (Umeclidinium [place] [Incruse Ellipta] 1 Inh) 1 inh INH DAILY [facility] Last Admin: 03/15/18 07:41 Dose: 1 inh Omeprazole (Prilosec Cap*) 20 mg PO BID [facility] Last Admin: 03/15/18 10:09 Dose: 20 mg Ondansetron HCl (Zofran Inj*) 4 mg IV Q6H PRN PRN Reason: NAUSEA Oxycodone/Acetaminophen (Percocet 5/325 Tab*) 1 tab PO Q4H PRN PRN Reason: PAIN Last Admin: 03/14/18 13:27 Dose: 1 tab Oxycodone/Acetaminophen (Percocet 5/325 Tab*) 2 tab PO Q4H PRN PRN Reason: PAIN Last Admin: 03/15/18 13:08 Dose: 2 tab Pharmacy Consult (Vancomycin Per Pharmacy*) 1 note FOLLOW UP .VANC PER PHARMACY [facility] Pharmacy Profile Note (Vancomycin Trough Check) 1 note FOLLOW UP 929 ONE Stop: 03/16/18 09:31 Polyethylene Glycol/Electrolytes (Miralax*) 17 gm PO DAILY PRN PRN Reason: CONSTIPATION Senna (Senokot Tab*) 2 tab PO BEDTIME [facility] Last Admin: 03/14/18 20:25 Dose: 2 tab Venlafaxine HCl (Effexor Xr Cap (Nf)) 225 mg PO DAILY [facility] Last Admin: 03/15/18 10:20 Dose: 225 mg Vital Signs - 8 hr 03/15/18 03/15/18 03/15/18 07:17 07:42 08:00 Temperature 97.8 F Pulse Rate 72 72 Respiratory 18 16 16 Rate Blood Pressure 147/76 (mmHg) O2 Sat by Pulse 98 96 Oximetry 03/15/18 03/15/18 03/15/18 10:09 10:19 11:38 Temperature 98.2 F Pulse Rate 64 Respiratory 16 16 17 Rate Blood Pressure 130/75 (mmHg) O2 Sat by Pulse 96 Oximetry 03/15/18 03/15/18 03/15/18 12:10 12:11 13:08 Temperature Pulse Rate Respiratory 16 16 18 Rate Blood Pressure (mmHg) O2 Sat by Pulse Oximetry Oxygen Devices in Use Now: None Appearance: Patient is a 52yo male who appears stated age and is sitting in the bed in NAD. Eyes: No Scleral Icterus, PERRLA Ears/Nose/Mouth/Throat: NL Teeth, Lips, Gums, Clear Oropharnyx, Mucous Membranes Moist Neck: NL Appearance and Movements; NL JVP, Trachea Midline Respiratory: Symmetrical Chest Expansion and Respiratory Effort, Clear to Auscultation Cardiovascular: NL Sounds; No Murmurs; No JVD, RRR, No Edema Abdominal: NL Sounds; No Tenderness; No Distention, No Hepatosplenomegaly Lymphatic: No Cervical Adenopathy Extremities: No Edema, No Clubbing, Cyanosis Skin: No Rash or Ulcers, No Nodules or Sclerosis Neurological: Alert and Oriented x 3, NL Sensation, NL Muscle Strength and Tone , - - CN II-XII intact. Result Diagrams: 03/14/18 07:41 03/14/18 07:41 Additional Lab and Data: Lab Results 03/12/18 03/12/18 03/12/18 Range/Units 18:17 18:17 18:17 WBC 13.2 H (3.5-10.8) 10^3/ul RBC 5.35 (4.00-5.40) 10^6/ul Hgb 14.9 (14.0-18.0) g/dl Hct 45 (42-52) % MCV 85 (80-94) fL MCH 28 (27-31) pg MCHC 33 (31-36) g/dl RDW 16 H (10.5-15) % Plt Count 376 (150-450) 10^3/ul MPV 7.3 L (7.4-10.4) fL Neut % (Auto) 79.4 % Lymph % (Auto) 13.4 % [place] % (Auto) 4.5 % Eos % (Auto) 1.7 % Baso % (Auto) 1.0 % Absolute Neuts (auto) 10.5 H (1.5-7.7) 10^3/ul Absolute Lymphs (auto) 1.8 (1.0-4.8) 10^3/ul Absolute Monos (auto) 0.6 (0-0.8) 10^3/ul Absolute Eos (auto) 0.2 (0-0.6) 10^3/ul Absolute Basos (auto) 0.1 (0-0.2) 10^3/ul Absolute Nucleated RBC 0 10^3/ul Nucleated RBC % 0 ESR Cancelled Sodium 137 (135-145) mmol/L Potassium 3.9 (3.5-5.0) mmol/L Chloride 103 (101-111) mmol/L Carbon Dioxide 27 (22-32) mmol/L Anion Gap 7 (2-11) mmol/L BUN 11 (6-24) mg/dL Creatinine 1.07 (0.67-1.17) mg/dL Est GFR ( Amer) 88.5 (>60) Est GFR (Non-Af Amer) 73.2 (>60) BUN/Creatinine Ratio 10.3 (8-20) Glucose 117 H (70-100) mg/dL Lactic Acid 1.5 (0.5-2.0) mmol/L Calcium 9.9 (8.6-10.3) mg/dL Total Bilirubin 0.30 (0.2-1.0) mg/dL AST 15 (13-39) U/L ALT 25 (7-52) U/L Alkaline Phosphatase 118 H (34-104) U/L C-Reactive Protein 45.35 H (<8.01) mg/L Total Protein 7.5 (6.4-8.9) g/dL Albumin 4.4 (3.2-5.2) g/dL Globulin 3.1 (2-4) g/dL Albumin/Globulin Ratio 1.4 (1-3) Microbiology and Other Data: Microbiology 03/12/18 18:17 Aerobic Blood Culture - Preliminary Blood Venous No Growth Day 1 Anaerobic Blood Culture - Preliminary No Growth Day 1 Assess/Plan/Problems-Billing Assessment: Patient is a 52yo male with a PMH for Recent extensive bravo, HTN, COPD, who was recently diagnosed with Paravertebral abscess and is currently undergoing treatment with IV antibiotics. - Patient Problems (1) Abscess Current Visit: Yes Status: Acute Code(s): L02.91 - CUTANEOUS ABSCESS, UNSPECIFIED SNOMED Code(s): 789391077 Comment: - Paravertebral abscess on MRI with back pain, without neurological deficits - Appreciate Neurosurgical Input - Recommends conservative treatment - Pending ID consult - BC negative to date. - No IVDA, possibly from recent tooth extraction, was covered with PCN at the time - On Vancomycin, Cefepime and Flagyl - Blood Cultures Negative, Would be dangerous biopsy with proximity of aorta. - Negative Blood Cultures from [facility] - Pain control with Mobic, Tylenol, Oxycodone and Morphine for breakthrough pain. (2) HTN (hypertension) Current Visit: Yes Status: Acute Code(s): I10 - ESSENTIAL (PRIMARY) HYPERTENSION SNOMED Code(s): 40816375 Comment: - Normotensive, Continue Amlodipine, losartan, and HCTZ (3) Depression Current Visit: Yes Status: Acute Code(s): F32.9 - MAJOR DEPRESSIVE DISORDER , SINGLE EPISODE, UNSPECIFIED SNOMED Code(s): 10941498 Comment: - Continue Wellbutrin and Venlafaxine (4) DVT prophylaxis Current Visit: Yes Status: Acute Code(s): OCK6163 - SNOMED Code(s): 579572129 Comment: - Heparin SubQ (5) Patient is full code Current Visit: Yes Status: Acute Code(s): Z78.9 - OTHER SPECIFIED HEALTH STATUS SNOMED Code(s): 959595982 Status and Disposition: Inpatient for IV antibiotics.
[2018-03-15] MEDS: metroNIDAZOLE IV 500 MG/100ML* 500 MG/100 ML BAG IVPB SCH ×2 (15:47→23:48)
[2018-03-15] MEDS: Nicotine Inhaler* 10 MG AMP INH PRN (20:29)
[2018-03-15] MEDS: Senna TAB PO SCH (21:21)
[2018-03-15] MEDS: BUPROPION 150 MG PO SCH (21:22)
[2018-03-16] MEDS: Vancomycin(*) 1,250 MG in NS 0.9% 250 ML* 250 ML IVPB SCH ×2 (01:33→11:36)
[2018-03-16] MEDS: Morphine VIAL* 4 MG/ML VIAL (1 ml vial) IV PRN ×4 (01:33→21:17)
[2018-03-16] MEDS: oxyCODONE/Acetamin 5/325 MG* TAB PO PRN ×3 (04:39→23:34)
[2018-03-16] MEDS: Heparin VIAL(*) 5000 UNITS/ML VIAL (FIVE THOUSAND) SUBCUT SCH ×3 (06:00→21:18)
[2018-03-16 07:33] LABS: ABS Basophils 0 10^3/ul (0-0.2); ABS Eosinophils 0.5 10^3/ul (0-0.6); ABS Lymphocytes 1.6 10^3/ul (1.0-4.8); ABS Monocytes 0.7 10^3/ul (0-0.8); ABS Neutrophils 5.4 10^3/ul (1.5-7.7); ABS Nucleated RBC 0 10^3/ul; Eosinophil % 6.3 %; Hematocrit 44 % (42-52); Hemoglobin 14.7 g/dl (14.0-18.0); Lymphocyte % 19.9 %; Mean Corpuscular HGB Conc 33 g/dl (31-36); Mean Corpuscular Hemoglobin 28 pg (27-31); Mean Corpuscular Volume 83 fL (80-94); Mean Platelet Volume 7.3 fL (7.4-10.4); Nucleated Red Blood Cells % 0.1; Platelet Count 339 10^3/ul (150-450); Red Blood Count 5.29 10^6/ul (4.00-5.40); Red Cell Distribution Width 15 % (10.5-15); White Blood Count 8.2 10^3/ul (3.5-10.8)
[2018-03-16] MEDS: UMECLIDINIUM BROMIDE INH SCH (07:39)
[2018-03-16] MEDS: PTO: Fluticasone/Vilanterol MDI(NF) 200/25 MDI INH SCH (07:39)
[2018-03-16 07:44] LABS: BUN/Creatinine Ratio 15.6 (8-20); Calcium 9.5 mg/dL (8.6-10.3); EGFR Non-African American 71.6 (>60)
[2018-03-16] MEDS ORDERED: metroNIDAZOLE IV 500 MG/100ML* 500 MG/100 ML BAG IVPB SCH (08:00)
[2018-03-16] MEDS: amLODIPine TAB* 5 MG PO SCH (08:35)
[2018-03-16] MEDS: Losartan TAB* 25 MG PO SCH (08:35)
[2018-03-16] MEDS: Hydrochlorothiazide TAB* 25 MG PO SCH (08:35)
[2018-03-16] MEDS: VENLAFAXINE PO SCH (08:36)
[2018-03-16] MEDS: Docusate CAP* 100 MG PO SCH (08:36)
[2018-03-16] MEDS: Benzonatate CAP* 100 MG PO SCH ×3 (08:36→21:12)
[2018-03-16] MEDS: BUPROPION 150 MG PO SCH ×2 (08:37→21:19)
[2018-03-16 08:41] LABS: Potassium 4.6 mmol/L (3.5-5.0)
[2018-03-16] MEDS: Omeprazole CAP* 20 MG PO SCH ×2 (08:47→21:12)
[2018-03-16] MEDS: ALPRAZolam TAB* 0.5 MG PO PRN ×2 (08:58→21:13)
[2018-03-16] MEDS ORDERED: Vancomycin Trough Check NOTE FOLLOW UP ONE (09:30)
[2018-03-16 10:12] LABS: Vancomycin Trough 12.2 mcg/mL
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
[2018-03-16] MEDS: Cefepime 2 GM in Dextrose(*) 2 GM/50 ML BAG IV SCH ×3 (13:45→23:43)
[2018-03-16] MEDS: Nicotine Inhaler* 10 MG AMP INH PRN ×2 (16:01→21:29)
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
[2018-03-16] MEDS: Vancomycin(*) 1,000 MG in NS 0.9% 250 ML* 250 ML IVPB SCH (18:10)
[2018-03-16] MEDS: Senna TAB PO SCH (21:13)
[2018-03-17] MEDS: Vancomycin(*) 1,000 MG in NS 0.9% 250 ML* 250 ML IVPB SCH ×4 (00:16→17:40)
[2018-03-17] MEDS: Morphine VIAL* 4 MG/ML VIAL (1 ml vial) IV PRN ×4 (04:23→23:49)
[2018-03-17] MEDS: Heparin VIAL(*) 5000 UNITS/ML VIAL (FIVE THOUSAND) SUBCUT SCH ×3 (06:02→21:32)
[2018-03-17] MEDS: UMECLIDINIUM BROMIDE INH SCH (07:55)
[2018-03-17] MEDS: PTO: Fluticasone/Vilanterol MDI(NF) 200/25 MDI INH SCH (07:56)
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
[2018-03-17] MEDS: VENLAFAXINE PO SCH (08:54)
[2018-03-17] MEDS: Losartan TAB* 25 MG PO SCH (08:54)
[2018-03-17] MEDS: BUPROPION 150 MG PO SCH ×2 (08:54→21:34)
[2018-03-17] MEDS: ALPRAZolam TAB* 0.5 MG PO PRN ×2 (08:54→21:31)
[2018-03-17] MEDS: Docusate CAP* 100 MG PO SCH (08:55)
[2018-03-17] MEDS: Hydrochlorothiazide TAB* 25 MG PO SCH (08:55)
[2018-03-17] MEDS: Benzonatate CAP* 100 MG PO SCH ×3 (08:55→21:27)
[2018-03-17] MEDS: Omeprazole CAP* 20 MG PO SCH ×2 (08:55→21:27)
[2018-03-17] MEDS: amLODIPine TAB* 5 MG PO SCH (08:55)
[2018-03-17] MEDS: Cefepime 2 GM in Dextrose(*) 2 GM/50 ML BAG IV SCH ×3 (12:12→23:49)
[2018-03-17] MEDS: oxyCODONE/Acetamin 5/325 MG* TAB PO PRN ×2 (12:19→21:26)
[2018-03-17] MEDS: Nicotine Inhaler* 10 MG AMP INH PRN ×2 (15:06→17:40)
[2018-03-17] MEDS: Senna TAB PO SCH (21:27)
[2018-03-18] MEDS: Vancomycin(*) 1,000 MG in NS 0.9% 250 ML* 250 ML IVPB SCH ×2 (00:46→05:35)
[2018-03-18] MEDS: Heparin VIAL(*) 5000 UNITS/ML VIAL (FIVE THOUSAND) SUBCUT SCH ×2 (05:35→14:38)
[2018-03-18 06:07] LABS: ABS Basophils 0 10^3/ul (0-0.2); ABS Eosinophils 0.5 10^3/ul (0-0.6); ABS Lymphocytes 1.5 10^3/ul (1.0-4.8); ABS Monocytes 0.8 10^3/ul (0-0.8); ABS Neutrophils 5.5 10^3/ul (1.5-7.7); ABS Nucleated RBC 0 10^3/ul; Eosinophil % 6.1 %; Hematocrit 42 % (42-52); Hemoglobin 14.3 g/dl (14.0-18.0); Lymphocyte % 17.9 %; Mean Corpuscular HGB Conc 34 g/dl (31-36); Mean Corpuscular Hemoglobin 28 pg (27-31); Mean Corpuscular Volume 84 fL (80-94); Mean Platelet Volume 7.4 fL (7.4-10.4); Nucleated Red Blood Cells % 0.1; Platelet Count 311 10^3/ul (150-450); Red Blood Count 5.05 10^6/ul (4.00-5.40); Red Cell Distribution Width 16 % (10.5-15); White Blood Count 8.4 10^3/ul (3.5-10.8)
[2018-03-18 07:58] LABS: Albumin 3.7 g/dL (3.2-5.2); Calcium 9.4 mg/dL (8.6-10.3); Potassium 3.7 mmol/L (3.5-5.0); Total Bilirubin 0.2 mg/dL (0.2-1.0)
[2018-03-18 08:04] LABS: Albumin/Globulin Ratio 1.2 (1-3); BUN/Creatinine Ratio 18.7 (8-20); C Reactive Protein 22.05 mg/L (<8.01); EGFR Non-African American 88.2 (>60); Globulin 3.1 g/dL (2-4); Total Protein 6.8 g/dL (6.4-8.9)
[2018-03-18] MEDS: amLODIPine TAB* 5 MG PO SCH (08:05)
[2018-03-18] MEDS: Docusate CAP* 100 MG PO SCH (08:06)
[2018-03-18] MEDS: Omeprazole CAP* 20 MG PO SCH (08:06)
[2018-03-18] MEDS: VENLAFAXINE PO SCH (08:06)
[2018-03-18] MEDS: Hydrochlorothiazide TAB* 25 MG PO SCH (08:06)
[2018-03-18] MEDS: BUPROPION 150 MG PO SCH (08:06)
[2018-03-18] MEDS: Losartan TAB* 25 MG PO SCH (08:06)
[2018-03-18] MEDS: Benzonatate CAP* 100 MG PO SCH ×2 (08:06→14:48)
[2018-03-18] MEDS: ALPRAZolam TAB* 0.5 MG PO PRN (08:11)
[2018-03-18] MEDS: oxyCODONE/Acetamin 5/325 MG* TAB PO PRN (08:12)
[2018-03-18] MEDS: UMECLIDINIUM BROMIDE INH SCH (08:25)
[2018-03-18] MEDS: PTO: Fluticasone/Vilanterol MDI(NF) 200/25 MDI INH SCH (08:25)
[2018-03-18] MEDS ORDERED: DAPTOMYCIN IVPB SCH (10:00)
[2018-03-18] MEDS ORDERED: NS 0.9% IVPB SCH (10:00)
[2018-03-18] MEDS ORDERED: Vancomycin Trough Check NOTE FOLLOW UP ONE (11:30)
[2018-03-18 12:08] LABS: EGFR Non-African American 90.5 (>60)
[2018-03-18] MEDS: Cefepime 2 GM in Dextrose(*) 2 GM/50 ML BAG IV SCH (12:22)
[2018-03-18 15:39] VITALS: BP 117/70
--- NOTE | 2018-03-18 20:54 | DS ---
CC: LATRELL Medellin; Dr. Yonny Mcdonald; Dr. Ki Thurston * DISCHARGE SUMMARY: DATE OF ADMISSION: 03/12/18 DATE OF DISCHARGE: 03/18/18 PRIMARY CARE PROVIDER: LATRELL Medellin. ATTENDING PHYSICIAN: Dr. Gale * (dictated by Catalina Nails NP) PRIMARY DIAGNOSIS: Paravertebral abscess with osteomyelitis. SECONDARY DIAGNOSES: 1. Hypertension. 2. Depression. 3. Anxiety. 4. Posttraumatic stress disorder. 5. Chronic obstructive pulmonary disease. CONSULTATIONS WHILE IN THE HOSPITAL: Dr. Yonny Mcdonald, Infectious Disease and Dr. Ki Thurston, neurosurgeon. PROCEDURES WHILE IN THE HOSPITAL: No procedures. STUDIES WHILE IN THE HOSPITAL: 1. Thoracic spine MRI: Impression: Osteomyelitis, diskitis with adjacent paravertebral abscess at T10 through T11. No epidural extension. Mild multilevel thoracic spondylopathy. 2. Lumbar spine MRI: Impression: Findings highly suggestive of osteomyelitis , diskitis at T10/T11, which is incompletely visualized, see concurrently obtained thoracic spine MRI for details. Mild multilevel lumbar spondylopathy including disk protrusions at T12-L1 and L1-L2. DISCHARGE HOME MEDICATIONS: New home medications: 1. Percocet 5/325 one to two tabs q.4 hours p.r.n. pain. 2. Cefepime 2 g every 12 hours. 3. Daptomycin 700 mg p.o. q.24 hours. Continued home medications: 1. Breo Ellipta MDI 200/25 one puff inhalation q.a.m. 2. Effexor XR 225 mg p.o. daily. 3. Bupropion XL 150 mg p.o. daily. 4. Incruse Ellipta 1 inhalation daily. 5. Tessalon 100 mg p.o. t.i.d.. 6. Meloxicam 7.5 mg p.o. b.i.d. 7. Losartan/HCTZ 100/25 mg 1 tab p.o. daily. 8. Amlodipine 10 mg p.o. daily. 9. Xanax 0.5 to 1 mg p.o. t.i.d. h.s. p.r.n. 10. Repatha syringe 140 mg subQ q.14 days. 11. Omeprazole 20 mg p.o. b.i.d. Discontinued home medications: No home medications were discontinued. HISTORY OF PRESENT ILLNESS/HOSPITAL COURSE: Mr. Ruiz is a 52-year-old male with a past medical history of hypertension, depression, anxiety, PTSD, COPD; who presented to the ED on 03/12/18 with complaints of a concern for spinal infection. Please see history and physical by Karey Tirado NP for complete summary of the events leading to this hospitalization, but in short, the patient was admitted to [facility] on after going to emergency room with constipation and pain in his back. At that time, imaging was completed and he was told he had an infection in his spine. He admits that he became very anxious while admitted and left AMA. In our emergency room, the patient had lumbar and thoracic MRI, which showed osteomyelitis with diskitis with adjacent paravertebral abscess at T10- T11 with no epidural extension. It should be noted he had no fever. In addition, his labs were remarkable with a CRP of 45.35, his white count was mildly elevated at 13.2, and his ESR was 38. Therefore, we were asked to admit the patient for further evaluation and treatment. During this hospital stay, the patient has been receiving vancomycin and cefepime 2 g q.12 hours. He was also evaluated by Dr. Thurston from Neurosurgery due to location of abscess, who recommended that the patient be treated with long-term IV antibiotics as the paraspinal collection is adjacent to large vessels making a biopsy not without risk. In addition, the patient was also evaluated by Infectious Disease who recommended 8 weeks of broad- spectrum IV antibiotics in the form of cefepime 2 g every 12 hours and daptomycin. He will also need weekly CBC, CMP, CRP and CK as this will indicate improvement if there is improvement in inflammatory markers as well as his symptoms. While admitted, the patient has also required pain control with Mobic , Tylenol, oxycodone, and morphine for breakthrough pain. The patient's pain is currently controlled on Percocet. During this hospital stay, the patient has also been free from any neurological deficits or symptoms. In addition, his leukocytosis has improved. When he was admitted, his WBC was 13.2, it is now 8.4. His C-reactive protein on admission was 45.35 and is now 22.05. The patient has also remained afebrile during his admission and vital signs have remained stable. The patient is stable for discharge home and states he is ready for discharge home. Vital signs are temp 97.9, HR 89, RR 16, O2 sat 97% RA, BP is 117/70. DISCHARGE PLAN/FOLLOWUP: 1. Paravertebral abscess with osteomyelitis: As mentioned above, the patient will be going home with the PICC in his right upper extremity, which was placed during his admission. He will have in-home nursing who will assist him with IV antibiotic infusions including cefepime 2 g q.12 hours and daptomycin. The patient will also have weekly CBC, CMP, CRP, CK. These results should be sent to Dr. Mcdonald. He will follow up with Dr. Mcdonald in 1 month. The patient was educated on signs and symptoms of new/worsening condition including but not limited to fever, tachycardia, nausea, vomiting, chest pain, shortness of breath , palpitations. The patient was encouraged to return to the emergency room with any new symptoms or concerns. 2. Back pain: The patient has been having back pain associated with his current paravertebral abscess. The patient's pain is controlled currently with Percocet p.o. I have sent the patient home with Percocet 5/325, 30 tabs, with the instructions of 1 to 2 tabs p.o. q.4 hours p.r.n. pain. I have also instructed the patient to start to wean himself from Percocet. As inflammation has decreased, he should be able to decrease his intake of oxycodone, only needed for severe pain. Discussed the use of Tylenol and NSAIDs as needed. I have also educated the patient that if he needs further pain management or refill on his pain medications, he should see his primary care provider. The patient agrees to follow up with his primary care provider either Friday of this week or Friday of next. I have also educated the patient that if pain is severe and not tolerable, he should return to the emergency department. I also discussed possible benefits of physical therapy. The patient plans to discuss possible Physical Therapy referral with his primary care provider on his followup. 3. Hypertension: The patient should continue losartan/HCTZ 100/25 p.o. daily in addition to amlodipine 10 mg p.o. daily as previously prescribed. 4. Depression: The patient should continue venlafaxine and bupropion as previously prescribed. 5. Anxiety: The patient should continue venlafaxine and bupropion as previously prescribed. In addition, the patient should use Xanax as needed as prescribed by his primary care provider. 6. PTSD: Same as above. 7. COPD: The patient should continue Incruse Ellipta as previously prescribed. This is a summarized report of a complex medical history and hospital stay. For further details, please see entire medical record. This plan was discussed with my attending, Dr. Gale, who agrees with my plan. TIME SPENT: Approximately 45 minutes were spent on this discharge, greater than half that time was spent [id number] with the patient discussing discharge plan and instructions. CATALINA NAILS, PARKER [id number]/[facility] #: [id number]
== END 2018-03-18 15:35 | disposition home or self-care (01) | DRG 344 ==
LOC: ED 15:27 → MED 23:34
PROVIDERS: ADMIT Internal Medicine; ATTEND Internal Medicine
PROC: 05HN33Z Insertion of Infusion Device into Left Internal Jugular Vein, Percutaneous Approach (ICD-10-PCS; principal; 2018-03-16)
DX: M46.25 Osteomyelitis of vertebra, thoracolumbar region (principal); M46.45 Discitis, unspecified, thoracolumbar region; I10 Essential (primary) hypertension; F32.9 Major depressive disorder, single episode, unspecified; F41.9 Anxiety disorder, unspecified; F43.10 Post-traumatic stress disorder, unspecified; J44.9 Chronic obstructive pulmonary disease, unspecified; F17.210 Nicotine dependence, cigarettes, uncomplicated; Z79.899 Other long term (current) drug therapy; Z88.8 Allergy status to other drugs, medicaments and biological substances; Z91.030 Bee allergy status; Z91.013 Allergy to seafood; Z82.49 Family history of ischemic heart disease and other diseases of the circulatory system; Z82.3 Family history of stroke
CPT/HCPCS: 36415; 70030; 72128; 72131; 72146; 72148; 80048; 80053; 80202; 82550; 82565; 83605; 83735; 84520; 85025; 85652; 86140; 87040; 94640; 99284; A9270-GY; C1751; J0692; J0878; J1644; J2270; J3370; J3490

== ENCOUNTER 2018-04-01 19:51 | Emergency (ER) | payer OTHER ==
--- NOTE | 2018-04-01 20:15 | ED ---
HPI Chest Pain - HPI Summary HPI Summary: A 52 y/o male presents to the ED c/o chest pain reaching 10/10 in severity. In the ED room, the patient has a pulse of 90 BPM, O2 saturation of 95%, respiratory rate of 22, and blood pressure of 188/87. As per triage, "Patient brought by ambulance for chest pain that has been going on for the past couple days. Patient states that today the pain has been more consistent". As per EMS, the patient has a history of spinal abscess with one against his spine and another against his aorta/vena cava. Patient stated c/o back pain that radiated to his arm, neck and chest. An EKG taken en route was completely normal. Patient initial BP was 230/80, however, another was taken which came down to 190 /90 and then 166/80. According to the patient, he woke up this morning not feeling good. He stated that he has been taking antibiotics lately via PICC line in his arm. He stated that he was recently released from the hospital on March 18, 2018. He stated that yesterday he was feeling okay, just tired and worn out. Patient stated that this morning and for the last few days the pain has been radiating from his back to his arm, neck and chest. He stated that the pain is like soreness and aching. He came to the ED c/o chest pain that wouldn' t go away and it was coupled with SOB. Additionally, he experienced pain underneath his arm. He noted that it is difficult to ambulate and getting up/ down as he gets SOB, a lot quicker than normal. He denies any fevers, chills, nausea, vomiting, however he may have a cold because his girlfriend has one. PMHx of HBP and depression Patient is a smoker and is in process of quitting. - History of Current Complaint Chief Complaint: EDChestPainROMI Hx Obtained From: Patient, EMS - GAVE SUMMARY OF PATIENT Onset/Duration: Started Days Ago, Still Present, Worse Since Timing: Constant, Lasting Days Initial Severity: Severe Current Severity: Severe Pain Intensity: 10 Pain Scale Used: 0-10 Numeric Chest Pain Location: Diffuse Chest Pain Radiates: Yes Chest Pain Radiates To:: Back, Shoulder, Arm, Neck Character: Dull/Aching Aggravating Factor(s): Nothing Alleviating Factor(s): Nothing Associated Signs and Symptoms: Positive: Chest Pain, Shortness of Breath, Back Pain. Negative: Fever, Chills - Additional Pertinent History Primary Care Physician: ISHMAEL - Allergy/Home Medications Allergies/Adverse Reactions: Allergies Allergy/AdvReac Type Severity Reaction Status Date / Time bee venom protein (honey bee) Allergy Anaphylatic Verified 04/01/18 20:37 Shock shellfish derived Allergy Nausea And Verified 04/01/18 20:37 Vomiting Home Medications: Home Medications Albuterol Sulfate [Ventolin Hfa] 2 puff INH Q4HR PRN 04/01/18 [History Confirmed 04/01/18] Cefepime(*) [Maxipime(*)] 2 gm IV Q12H 04/01/18 [History Confirmed 04/01/18] DAPTOmycin [Daptomycin] 750 mg IV DAILY 04/01/18 [History Confirmed 04/01/18] Heparin Sodium,Porcine/Pf [Heparin Lock Flush 10 Units/ml] 50 unit IV BID [History Confirmed 04/01/18] Sodium Chloride 0.9%* 10 ml IV BID 04/01/18 [History Confirmed 04/01/18] Zaleplon (NF) [Sonata (NF)] 10 mg PO BEDTIME PRN 04/01/18 [History Confirmed ] oxyCODONE/Acetamin 5/325 MG* [Percocet 5/325 TAB*] 1 - 2 tab PO Q6HR PRN MDD 4 04/01/18 [History Confirmed 04/01/18] PMH/Surg Hx/FS Hx/Imm Hx Endocrine/Hematology History: Denies: Hx Diabetes, Hx Thyroid Disease Cardiovascular History: Reports: Hx Hypercholesterolemia, Hx Hypertension Denies: Hx Coronary Artery Disease, Hx Myocardial Infarction, Hx Pacemaker/ ICD, Hx Valvular Heart Disease Respiratory History: Reports: Hx Asthma, Hx Sleep Apnea - evaluation for 04/2013 , Other Respiratory Problems/Disorders - current smoker Denies: Hx Chronic Obstructive Pulmonary Disease (COPD) GI History: Denies: Hx Ulcer Musculoskeletal History: Reports: Other Musculoskeletal History - recent onset generalized muscle pain Sensory History: Reports: Hx Contacts or Glasses Denies: Hx Hearing Aid Opthamlomology History: Reports: Hx Contacts or Glasses Psychiatric History: Reports: Hx Anxiety, Hx Depression Denies: Hx Panic Disorder, Hx of Violent Episodes Against Others - Surgical History Surgery Procedure, Year, and Place: APPENDECTOMY - Immunization History Date of Tetanus Vaccine: in last couple years Infectious Disease History: No Infectious Disease History: Denies: Hx Hepatitis, Hx Human Immunodeficiency Virus (HIV), Traveled Outside the [place] in Last 30 Days - Family History Known Family History: Positive: Hypertension Negative: Cardiac Disease, Diabetes Family History: R & n/C - Social History Alcohol Use: Daily Alcohol Amount: 4 days per week, 2-3 each day Substance Use Type: Reports: None Hx Tobacco Use: Yes Smoking Status (MU): Light Every Day Tobacco Smoker Type: Cigarettes Amount Used/How Often: 1ppd Have You Smoked in the Last Year: Yes Review of Systems Negative: Fever, Chills Positive: Chest Pain Positive: Shortness Of Breath Negative: Vomiting, Nausea Positive: Other - POSITIVE: BACK PAIN, NECK PAIN AND ARM PAIN All Other Systems Reviewed And Are Negative: Yes Physical Exam - Summary Physical Exam Summary: Appearance: Well-appearing, Well-nourished, lying in bed comfortably. Mild obesity. Skin: Warm, dry, no obvious rash Eyes: sclera anicteric, no conjunctival pallor ENT: mucous membranes moist, pharynx appears normal Neck: Supple, nontender Respiratory: Clear to auscultation, no signs of respiratory distress Cardiovascular: Normal S1, S2. No murmurs. Normal distal pulses in tibial and radial bilaterally. Abdomen: Soft, nontender, normal active bowel sounds present Musculoskeletal: Normal, Strength/ROM Intact Neurological: A&Ox3, awake and alert, mentation is normal, speech is fluent and appropriate Psychiatric: affect is normal, does not appear anxious or depressed Triage Information Reviewed: Yes Vital Signs On Initial Exam: Initial Vitals Temp Pulse Resp BP Pulse Ox 98.5 F 87 18 152/77 96 04/01/18 19:58 04/01/18 19:58 04/01/18 19:58 04/01/18 19:58 04/01/18 19:58 Vital Signs Reviewed: Yes Diagnostics - Vital Signs Vital Signs Temp Pulse Resp BP Pulse Ox 04/01/18 19:58 98.5 F 87 18 152/77 96 - Laboratory Result Diagrams: 04/01/18 20:28 04/01/18 20:28 Lab Statement: Any lab studies that have been ordered have been reviewed, and results considered in the medical decision making process. - Radiology CXR Radiology Interpretation Completed By: ED Physician Summary of Radiographic Findings: NO ACTIVE DISEASE. PENDING OFFICIAL REPORT. - EKG 2010 Cardiac Rate: NL - 85 BPM EKG Rhythm: Sinus Rhythm - 85 BPM Summary of EKG Findings: NSR at 85 BPM, P waves, QRS complex, and T waves are within normal limits, T waves and intervals are normal, no ischemic changes. This is a normal EKG. Chest Pain Course/Dx - Course Course Of Treatment: A 52 y/o male presents to the ED c/o chest pain reaching 10 /10 in severity. According to the patient, he woke up this morning not feeling good. He stated that he has been taking antibiotics lately via PICC line in his arm. He stated that he was recently released from the hospital on March 18, 2018. He stated that yesterday he was feeling okay, just tired and worn out. Patient stated that this morning and for the last few days the pain has been radiating from his back to his arm, neck and chest. He stated that the pain is like soreness and aching. He came to the ED c/o chest pain that wouldn't go away and it was coupled with SOB. Additionally, he experienced pain underneath his arm. He noted that it is difficult to ambulate and getting up/down as he gets SOB, a lot quicker than normal. He denies any fevers, chills, nausea, vomiting, however he may have a cold because his girlfriend has one. As per EMS , the patient has a history of spinal abscess with one against his spine and another against his aorta/vena cava. Physical examination findings were significant for mild obesity. A CXR revealed no active disease. An EKG revealed NSR at 85 BPM, P waves, QRS complex, and T waves are within normal limits, T waves and intervals are normal, no ischemic changes. This is a normal EKG. Hematology, coagulation, and Chemistry screens were done. No significant laboratory abnormalities were found. Troponin was 0.01. In the ED course, the patient received no medications. Patient will be signed out to Dr. Vilma Delatorre via Dr. Kayode Carrizales, laboratory screens and disposition, upon shift change on 04/01/2018 at 2200. Discharge - Sign-Out/Discharge Documenting (check all that apply): Sign-Out Patient - SOSA Signing out patient TO: Vilma Delatorre Receiving patient FROM: Kayode Carrizales - Discharge Plan Condition: Good Disposition: HOME Patient Education Materials: Chest Pain (ED) Referrals: Mis SOUSA,Cely Parker [Primary Care Provider] - Additional Instructions: Continue following up with Dr. Lester and Dr. Thurston as you have been doing. We did not find any evidence of an acute heart condition tonight, or any other immediately worrisome condition. - Attestation Statements Document Initiated by Scribe: Yes Documenting Scribe: Drew Martinez Provider For Whom Scribe is Documenting (Include Credential): Kayode Carrizales MD Scribe Attestation: Drew Armas, fanied for Kayode Carrizales MD on 04/01/18 at 8554. Status of Scribe Document: Ready
[2018-04-01 20:40] LABS: Hematocrit 40 % (42-52); Hemoglobin 13.5 g/dl (14.0-18.0); Mean Corpuscular HGB Conc 34 g/dl (31-36); Mean Corpuscular Hemoglobin 28 pg (27-31); Mean Corpuscular Volume 84 fL (80-94); Mean Platelet Volume 7.6 fL (7.4-10.4); Platelet Count 310 10^3/ul (150-450); Red Cell Distribution Width 16 % (10.5-15)
[2018-04-01 20:57] LABS: Albumin 4.2 g/dL (3.2-5.2); Albumin/Globulin Ratio 1.8 (1-3); BUN/Creatinine Ratio 10.5 (8-20); C Reactive Protein 13.21 mg/L (<8.01); Calcium 9.1 mg/dL (8.6-10.3); EGFR Non-African American 83.9 (>60); Globulin 2.4 g/dL (2-4); Potassium 3.7 mmol/L (3.5-5.0); Total Bilirubin 0.3 mg/dL (0.2-1.0); Total Protein 6.6 g/dL (6.4-8.9)
[2018-04-01 21:22] LABS: Lymphocytes % 26 %; Monocytes % 8 %; Neutrophil % 66 %
[2018-04-01 21:24] LABS: ABS Basophils 0 10^3/ul (0-0.2); ABS Eosinophils 0 10^3/ul (0-0.6); ABS Lymphocytes 1.9 10^3/ul (1.0-4.8); ABS Monocytes 0.6 10^3/ul (0-0.8); ABS Neutrophils 5.4 10^3/ul (1.5-7.7); ABS Nucleated RBC 0 10^3/ul; Nucleated Red Blood Cells % 0
[2018-04-01 21:37] LABS: Erythrocyte Sed Rate 15 mm/Hr (0-20)
--- NOTE | 2018-04-01 23:09 | ED ---
Progress - Progress Note Progress Note: This patient was signed out from Dr. Carrizales to Dr. Delatorre upon shift change at 22 :00 04/01/18 pending second troponin. His second troponin was 0.01. The patient will be discharged home. Strict return precautions were given. He is agreeable with this plan. Course/Dx - Course Course Of Treatment: This patient was signed out from Dr. Carrizales to Dr. Delatorre upon shift change at 22:00 04/01/18 pending second troponin. His second troponin was 0.01. The patient will be discharged home. Strict return precautions were given. He is agreeable with this plan. - Diagnoses Provider Diagnoses: Atypical chest pain Discharge - Sign-Out/Discharge Documenting (check all that apply): Patient Departure - DC - Discharge Plan Condition: Good Disposition: HOME Patient Education Materials: Chest Pain (ED) Referrals: Mis SOUSA,Cely Parker [Primary Care Provider] - Additional Instructions: Continue following up with Dr. Lester and Dr. Thurston as you have been doing. We did not find any evidence of an acute heart condition tonight, or any other immediately worrisome condition. - Billing Disposition and Condition Condition: GOOD Disposition: Home - Attestation Statements Document Initiated by Sharonibe: Yes Documenting Scribe: Lyndon Dupree Provider For Whom Lety is Documenting (Include Credential): Vilma Delatorre MD Scribe Attestation: Lyndon Armas, scribed for Vilma Delatorre MD on 04/02/18 at 0623. Scribe Documentation Reviewed: Yes Provider Attestation: The documentation as recorded by the Lyndon charles accurately reflects the service I personally performed and the decisions made by Nimo pedersen MD Status of Scribe Document: Viewed
[2018-04-01 23:16] VITALS: BP 153/78
== END 2018-04-01 23:21 | disposition home or self-care (01) ==
LOC: ED 19:51
DX: R07.89 Other chest pain (principal); F17.210 Nicotine dependence, cigarettes, uncomplicated
CPT/HCPCS: 36415; 71046; 80053; 83605; 84484; 85025; 85060; 85379; 85652; 86140; 93005; 99284

== ENCOUNTER 2018-07-24 21:12 | Emergency (ER) | payer OTHER ==
[2018-07-24] MEDS ORDERED: Ketorolac INJ* 30 MG/ML 1 ML VIAL IV PUSH ONE (22:12)
[2018-07-24] MEDS ORDERED: NS 0.9% 1000 ML** 1,000 ML IV ONE (22:12)
[2018-07-24] MEDS ORDERED: Acetaminophen TAB* 325 MG PO ONE (22:12)
--- NOTE | 2018-07-24 22:17 | ED ---
Complex/Multi-Sys Presentation - HPI Summary HPI Summary: Patient is a 52 y/o M presenting to ED with complaints of back pain, diffuse body aches, left ear ringing/pain/clogging, and fatigue. Fever is denied. Patient reports that ear Sx onset this morning. He reports Hx of bacterial infection in spine, PICC line was done around Mar 09 2018. Patient claims that he went through around 3-4 months of antibiotics. Patient claims that after antibiotics were discontinued, he has been experiencing constant back pain since. He also claims that he experiences intermittent, diffuse shooting pains throughout his body. Patient states that he does not have Hx of herniated discs , states that surgery was not done to treat bacterial infection of spine due to fear of complications. PMHx of HLD, HTN, asthma, sleep apnea, anxiety, depression. PSHX of appendectomy, surgery to right foot/ankle. FMHx of HTN. Patient consumes alcohol daily, smokes cigarettes daily, denies substance usage. On triage, pain is rated 9/10, nothing is noted to aggravate/alleviate Sx. Home medications and allergies are reviewed. - History Of Current Complaint Chief Complaint: EDGeneral Time Seen by Provider: 07/24/18 21:53 Hx Obtained From: Patient Onset/Duration: Lasting Hours - ear Sx onset this morning, Lasting Weeks - back pain has been constant since discontinuation of antibiotics., Still Present Timing: Constant, Intermittent, Lasting: - shooting pains, Hours - ear Sx onset this morning, Weeks - back pain has been constant since discontinuation of antibiotics. Severity Currently: Severe - 9/10 Location: Pain At: - back, left ear Aggravating Factor(s): nothing Alleviating Factor(s): nothing Associated Signs And Symptoms: Positive: Back Pain, Other - diffuse body aches, left ear ringing/pain/clogging, fatigue, intermittent shooting pains. Negative : Fever - Allergies/Home Medications Allergies/Adverse Reactions: Allergies Allergy/AdvReac Type Severity Reaction Status Date / Time bee venom protein (honey bee) Allergy Anaphylatic Verified 04/01/18 20:37 Shock shellfish derived Allergy Nausea And Verified 04/01/18 20:37 Vomiting Home Medications: Home Medications Zaleplon (NF) [Sonata (NF)] 10 mg PO BEDTIME 07/24/18 [History Confirmed ] PMH/Surg Hx/FS Hx/Imm Hx Endocrine/Hematology History: Denies: Hx Diabetes, Hx Thyroid Disease Cardiovascular History: Reports: Hx Hypercholesterolemia, Hx Hypertension - on meds Denies: Hx Coronary Artery Disease, Hx Myocardial Infarction, Hx Pacemaker/ ICD, Hx Valvular Heart Disease Respiratory History: Reports: Hx Asthma, Hx Sleep Apnea - evaluation for 04/2013 , Other Respiratory Problems/Disorders - current smoker Denies: Hx Chronic Obstructive Pulmonary Disease (COPD) GI History: Denies: Hx Ulcer History: Denies: Hx Renal Disease Musculoskeletal History: Reports: Other Musculoskeletal History - recent onset generalized muscle pain Sensory History: Reports: Hx Contacts or Glasses Denies: Hx Hearing Aid Opthamlomology History: Reports: Hx Contacts or Glasses Psychiatric History: Reports: Hx Anxiety, Hx Depression Denies: Hx Panic Disorder, Hx of Violent Episodes Against Others - Surgical History Surgery Procedure, Year, and Place: APPENDECTOMY. surgery to right foot/ankle - Immunization History Date of Tetanus Vaccine: in last couple years Infectious Disease History: No Infectious Disease History: Denies: Hx Hepatitis, Hx Human Immunodeficiency Virus (HIV), Traveled Outside the US in Last 30 Days - Family History Known Family History: Positive: Hypertension Negative: Cardiac Disease, Diabetes - Social History Alcohol Use: Daily Alcohol Amount: 4 days per week, 2-3 each day Substance Use Type: Reports: None Hx Tobacco Use: Yes Smoking Status (MU): Light Every Day Tobacco Smoker Type: Cigarettes Amount Used/How Often: 1ppd Have You Smoked in the Last Year: Yes Review of Systems Constitutional: Other - POSITIVE - DIFFUSE BODY ACHES, INTERMITTENT SHOOTING PAIN Positive: Fatigue. Negative: Fever Positive: Ear Ache - left ear ringing/pain/clogging Musculoskeletal: Other - POSITIVE - BACK PAIN All Other Systems Reviewed And Are Negative: Yes Physical Exam - Summary Physical Exam Summary: VITAL SIGNS: Reviewed. GENERAL: Patient is a well-developed and nourished male who is lying comfortable in the stretcher. Patient is not in any acute respiratory distress. HEAD AND FACE: No signs of trauma. No ecchymosis, hematomas or skull depressions. No sinus tenderness. EYES: PERRLA, EOMI x 2, No injected conjunctiva, no nystagmus. EARS: Hearing grossly intact. Ear canals and tympanic membranes are within normal limits. MOUTH: Oropharynx within normal limits. NECK: Supple, trachea is midline, no adenopathy, no JVD, no carotid bruit, no c- spine tenderness, neck with full ROM CHEST: Symmetric, no tenderness at palpation LUNGS: Clear to auscultation bilaterally. No wheezing or crackles. CVS: Regular rate and rhythm, S1 and S2 present, no murmurs or gallops appreciated. ABDOMEN: Soft, non-tender. No signs of distention. No rebound no guarding, and no masses palpated. Bowel sounds are normal. EXTREMITIES: FROM in all major joints, no edema, no cyanosis or clubbing. NEURO: Alert and oriented x 3. No acute neurological deficits. Speech is normal and follows commands. SKIN: Dry and warm Triage Information Reviewed: Yes Vital Signs On Initial Exam: Initial Vitals Temp Pulse Resp BP Pulse Ox 97.9 F 93 20 156/106 98 07/24/18 21:14 07/24/18 21:14 07/24/18 21:14 07/24/18 21:14 07/24/18 21:14 Vital Signs Reviewed: Yes Diagnostics - Vital Signs Vital Signs Temp Pulse Resp BP Pulse Ox 07/24/18 21:14 97.9 F 93 20 156/106 98 - Laboratory Result Diagrams: 07/24/18 04:07 07/24/18 22:24 Lab Statement: Any lab studies that have been ordered have been reviewed, and results considered in the medical decision making process. - Radiology CHEST X-RAY Radiology Interpretation Completed By: ED Physician Summary of Radiographic Findings: No acute process, pending official report. - CT SINUS CT CT Interpretation Completed By: Radiologist Summary of CT Findings: SINUS CT IMPRESSION: As previously seen, there is significant mucosal thickening throughout the. paranasal sinuses but no air- fluid levels, possible stable chronic. pansinusitis. THIS REPORT WAS REVIEWED BY DR. SWAN. Re-Evaluation - Re-Evaluation First Eval Re-Evaluation Time: 00:20 Comment: Discussed results of labs and tests. Patient will be given antibiotics and pain medication prescription. Patient is agreeable with discharge to home. Complex Multi-Symp Course/Dx Course Of Treatment: Patient is a 52 y/o M presenting to ED with complaints of back pain, diffuse body aches, left ear ringing/pain/clogging, and fatigue. Fever is denied. Patient reports that ear Sx onset this morning. He reports Hx of bacterial infection in spine, PICC line was done around Mar 09 2018. Patient claims that he went through around 3-4 months of antibiotics. Patient claims that after antibiotics were discontinued, he has been experiencing constant back pain since. Patient states that surgery was not done to treat bacterial infection. Physical exam is unremarkable. CXR showed no acute process. Labs showed WBC 11.9, RDW 16, absolute neuts 8.9, absolute monos 1.1, potassium 3.4, chloride 98, glucose 127, lactic acid 1.8, alk phos 109, CRP 29.75. UA was negative. Influenza A, B and group A strep rapid was negative. During ED course , patient received fluids, toradol 15 mg IV PUSH ED ONCE ONE, and Tylenol 975 mg PO ED ONCE ONE. SINUS CT IMPRESSION: As previously seen, there is significant mucosal thickening throughout the. paranasal sinuses but no air- fluid levels, possible stable chronic. pansinusitis. Discussed results of labs and tests. Patient will be given antibiotics and pain medication prescription. Patient is agreeable with discharge to home. - Diagnoses Provider Diagnoses: Sinusitis Discharge - Sign-Out/Discharge Documenting (check all that apply): Patient Departure - discharge Patient Received Moderate/Deep Sedation with Procedure: No - Discharge Plan Condition: Stable Disposition: HOME Prescriptions: Amoxicillin/Clavulanate TAB* [Augmentin TAB 875*] 875 mg PO BID #20 tab Ibuprofen TAB* [Motrin TAB* 800 MG] 800 mg PO Q6H PRN #30 tab PRN Reason: Pain Patient Education Materials: Sinusitis (ED) Referrals: Mis SOUSA,Cely Parker [Primary Care Provider] - 3 Days Additional Instructions: PLEASE RETURN TO THE ED IMMEDIATELY FOR WORSENING OR CONCERNING SYMPTOMS. FOLLOW UP WITH YOUR PRIMARY CARE PHYSICIAN WITHIN THREE DAYS. - Attestation Statements Document Initiated by Scribe: Yes Documenting Scribe: YENI FAITH Provider For Whom Lety is Documenting (Include Credential): SCOTTY SWAN MD Scribe Attestation: YENI Armas, scribed for SCOTTY SWAN MD on 07/25/18 at 0030. Status of Scribe Document: Ready
[2018-07-24 22:32] LABS: ABS Basophils 0.1 10^3/ul (0-0.2); ABS Eosinophils 0.1 10^3/ul (0-0.6); ABS Lymphocytes 1.7 10^3/ul (1.0-4.8); ABS Monocytes 1.1 10^3/ul (0-0.8); ABS Neutrophils 8.9 10^3/ul (1.5-7.7); Eosinophil % 1.1 %; Hematocrit 44 % (42-52); Hemoglobin 14.8 g/dL (14.0-18.0); Lymphocyte % 14.2 %; Mean Corpuscular HGB Conc 34 g/dL (31-36); Mean Corpuscular Hemoglobin 28 pg (27-31); Mean Corpuscular Volume 82 fL (80-94); Mean Platelet Volume 7.4 fL (7.4-10.4); Nucleated Red Blood Cells % 0.2; Platelet Count 254 10^3/uL (150-450); Red Blood Count 5.31 10^6 /uL (4.18-5.48); Red Cell Distribution Width 16 % (10.5-15); White Blood Count 11.9 10^3/uL (3.5-10.8)
[2018-07-24 22:38] LABS: Activated Partial Thrombo Time 31.8 seconds (26.0-36.3); INR 1.04 (0.82-1.09)
[2018-07-24 22:48] LABS: Albumin 4.5 g/dL (3.2-5.2); Albumin/Globulin Ratio 1.7 (1-3); BUN/Creatinine Ratio 15.6 (8-20); C Reactive Protein 29.75 mg/L (<8.01); Calcium 9.7 mg/dL (8.6-10.3); EGFR African American 100.3 (>60); EGFR Non-African American 82.9 (>60); Globulin 2.7 g/dL (2-4); Potassium 3.4 mmol/L (3.5-5.0); Total Bilirubin 0.6 mg/dL (0.2-1.0); Total Protein 7.2 g/dL (6.4-8.9)
[2018-07-24 23:39] LABS: Rapid Strep Molecular Negative (Negative)
[2018-07-24 23:48] LABS: Influenza A Molecular NEGATIVE (Negative); Influenza B Molecular NEGATIVE (Negative)
[2018-07-25 00:05] LABS: Urine Appearance Clear; Urine Bilirubin Negative (Negative); Urine Blood Negative (Negative); Urine Color Yellow; Urine Glucose Negative (Negative); Urine Ketones Negative (Negative); Urine Nitrite Negative (Negative); Urine Protein Negative (Negative); Urine Specific Gravity 1.014 (1.010-1.030); Urine Urobilinogen Negative (Negative)
[2018-07-25] MEDS ORDERED: Amoxicillin/Clavulanate TAB* 875 MG PO ONE (00:29)
[2018-07-25 01:04] VITALS: BP 123/64
== END 2018-07-25 01:07 | disposition home or self-care (01) ==
LOC: ED 21:12
DX: J01.90 Acute sinusitis, unspecified (principal); I10 Essential (primary) hypertension; E78.00 Pure hypercholesterolemia, unspecified; J45.909 Unspecified asthma, uncomplicated; F17.210 Nicotine dependence, cigarettes, uncomplicated; F41.9 Anxiety disorder, unspecified; F32.9 Major depressive disorder, single episode, unspecified; Z79.899 Other long term (current) drug therapy
CPT/HCPCS: 36415; 70486; 71045; 80053; 81003; 83605; 85025; 85610; 85730; 86140; 87040; 87651; 96361; 96374; 99284; A9270-GY; J1885

== ENCOUNTER 2019-04-06 15:12 | Emergency (ER) | payer OTHER ==
[2019-04-06 15:47] LABS: ABS Basophils 0.1 10^3/ul (0-0.2); ABS Eosinophils 0.4 10^3/ul (0-0.6); ABS Lymphocytes 1.9 10^3/ul (1.0-4.8); ABS Monocytes 0.9 10^3/ul (0-0.8); ABS Neutrophils 6.3 10^3/ul (1.5-7.7); Hematocrit 46 % (42-52); Hemoglobin 15.7 g/dL (14.0-18.0); Lymphocyte % 19.3 %; Mean Corpuscular HGB Conc 35 g/dL (31-36); Mean Corpuscular Hemoglobin 29 pg (27-31); Mean Corpuscular Volume 84 fL (80-94); Mean Platelet Volume 7.3 fL (7.4-10.4); Platelet Count 319 10^3/uL (150-450); Red Blood Count 5.44 10^6 /uL (4.18-5.48); Red Cell Distribution Width 14 % (10-15); White Blood Count 9.6 10^3/uL (3.5-10.8)
[2019-04-06 15:52] LABS: INR 1.06 (0.82-1.09)
[2019-04-06 16:05] LABS: Troponin I 0.01 ng/mL (<0.03)
[2019-04-06 16:06] LABS: Albumin 4.3 g/dL (3.2-5.2); Albumin/Globulin Ratio 1.6 (1-3); BUN/Creatinine Ratio 20.2 (8-20); Calcium 9.6 mg/dL (8.6-10.3); EGFR Non-African American 90.1 (>60); Globulin 2.7 g/dL (2-4); Potassium 3.3 mmol/L (3.5-5.0); Total Bilirubin 0.4 mg/dL (0.2-1.0)
[2019-04-06] MEDS ORDERED: Potassium Chlor TAB* 20 MEQ TAB.ER PO ONE (16:06)
--- NOTE | 2019-04-06 16:07 | ED ---
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 Pt reports he was sitting in the car driving home when he suddenly felt three "thuds" on his left side of chest described as a dull ache. He notes he grabbed his chest and felt SOB, "it took the breath out of me." Pt states this chest pain lasted 20 seconds and then resolved. However he reports every since he has been feeling his chest heavy and nauseous. Upon patient getting out of the car he felt dizzy and left arm tingling. Pt states he has had panic attacks in the past with chest pain, but notes "nothing like this." PMHx includes HTN, high cholesterol, depression, anxiety, COPD. Pt reports last stress test was in 2017. FHx of cardiac disease, mother and brother with [place]. - History of Current Complaint Chief Complaint: EDChestPainROMI Time Seen by Provider: 04/06/19 15:52 Hx Obtained From: Patient Onset/Duration: Started Hours Ago, Still Present Timing: Lasting Hours Initial Severity: Moderate Pain Intensity: 0 Pain Scale Used: 0-10 Numeric Chest Pain Location: Left Anterior Character: Dull/Aching - Dull ache that has now resolved, Heaviness - now Aggravating Factor(s): Nothing Alleviating Factor(s): Nothing Associated Signs and Symptoms: Positive: Chest Pain, Tingling, Dizziness, Shortness of Breath, Nausea. Negative: Fever, Chills - Additional Pertinent History Primary Care Physician: ISHMAEL - Allergy/Home Medications Allergies/Adverse Reactions: Allergies Allergy/AdvReac Type Severity Reaction Status Date / Time bee venom protein (honey bee) Allergy Anaphylatic Verified 04/06/19 15:27 Shock shellfish derived Allergy Nausea And Verified 04/06/19 15:27 Vomiting Home Medications: Home Medications BuPROPion XL* [Bupropion XL*] 300 mg PO DAILY 04/06/19 [History Confirmed ] Fluticasone NASAL SPRAY 50MCG* [Flonase NASAL SPRAY 50MCG*] 1 spray BOTH NARES BID 04/06/19 [History Confirmed 04/06/19] Naltrexone TAB* 50 mg PO BEDTIME 04/06/19 [History Confirmed 04/06/19] busPIRone TAB* [Buspar TAB *] 7.5 mg PO BID 04/06/19 [History Confirmed 04/06/19 ] hydrOXYzine HCL TAB* [Atarax TAB 50 MG *] 50 mg PO TID PRN 04/06/19 [History Confirmed 04/06/19] PMH/Surg Hx/FS Hx/Imm Hx Endocrine/Hematology History: Denies: Hx Diabetes, Hx Thyroid Disease Cardiovascular History: Reports: Hx Hypercholesterolemia, Hx Hypertension - on meds Denies: Hx Coronary Artery Disease, Hx Myocardial Infarction, Hx Pacemaker/ ICD, Hx Valvular Heart Disease Respiratory History: Reports: Hx Asthma, Hx Sleep Apnea - evaluation for 04/2013 , Other Respiratory Problems/Disorders - current smoker Denies: Hx Chronic Obstructive Pulmonary Disease (COPD) GI History: Denies: Hx Ulcer History: Denies: Hx Renal Disease Musculoskeletal History: Reports: Other Musculoskeletal History - recent onset generalized muscle pain Sensory History: Reports: Hx Contacts or Glasses Denies: Hx Hearing Aid Opthamlomology History: Reports: Hx Contacts or Glasses Psychiatric History: Reports: Hx Anxiety, Hx Depression Denies: Hx Panic Disorder, Hx of Violent Episodes Against Others - Surgical History Surgical History: Yes Surgery Procedure, Year, and Place: APPENDECTOMY. surgery to right foot/ankle - Immunization History Date of Tetanus Vaccine: in last couple years Infectious Disease History: No Infectious Disease History: Denies: Hx Hepatitis, Hx Human Immunodeficiency Virus (HIV), Traveled Outside the US in Last 30 Days - Family History Known Family History: Positive: Cardiac Disease - Mother and brother with [place], Hypertension Negative: Diabetes Family History: Father with stroke - Social History Alcohol Use: Daily Alcohol Amount: 4 days per week, 2-3 each day Substance Use Type: Reports: None Hx Tobacco Use: Yes Smoking Status (MU): Light Every Day Tobacco Smoker Type: Cigarettes Amount Used/How Often: 1ppd Have You Smoked in the Last Year: Yes Review of Systems Negative: Fever Positive: Chest Pain Positive: Shortness Of Breath Positive: Nausea Neurological: Other - POSITIVE: dizziness Positive: Paresthesia All Other Systems Reviewed And Are Negative: Yes Physical Exam - Summary Physical Exam Summary: VITAL SIGNS: Reviewed. GENERAL: Patient is a well-developed and nourished male who is lying comfortable in the stretcher. Patient is not in any acute respiratory distress. HEAD AND FACE: No signs of trauma. No ecchymosis, hematomas or skull depressions. No sinus tenderness. EYES: PERRLA, EOMI x 2, No injected conjunctiva, no nystagmus. EARS: Hearing grossly intact. Ear canals and tympanic membranes are within normal limits. MOUTH: Oropharynx within normal limits. NECK: Supple, trachea is midline, no adenopathy, no JVD, no carotid bruit, no c- spine tenderness, neck with full ROM. CHEST: Symmetric, no tenderness at palpation LUNGS: Clear to auscultation bilaterally. No wheezing or crackles. CVS: Regular rate and rhythm, S1 and S2 present, no murmurs or gallops appreciated. ABDOMEN: Soft, non-tender. No signs of distention. No rebound, no guarding, and no masses palpated. Bowel sounds are normal. EXTREMITIES: FROM in all major joints, no edema, no cyanosis or clubbing. NEURO: Alert and oriented x 3. No acute neurological deficits. Speech is normal and follows commands. SKIN: Dry and warm Triage Information Reviewed: Yes Vital Signs On Initial Exam: Initial Vitals Temp Pulse Resp BP Pulse Ox 97.7 F 84 16 128/71 93 04/06/19 15:23 04/06/19 15:23 04/06/19 15:23 04/06/19 15:23 04/06/19 15:23 Vital Signs Reviewed: Yes Procedures - Sedation Patient Received Moderate/Deep Sedation with Procedure: No Diagnostics - Vital Signs Vital Signs Temp Pulse Resp BP Pulse Ox 04/06/19 16:00 89 15 98 04/06/19 15:50 88 22 113/78 97 04/06/19 15:23 97.7 F 84 16 128/71 93 - Laboratory Lab Results: Lab Results 04/06/19 04/06/19 Range/Units 15:30 15:30 WBC 9.6 (3.5-10.8) 10^3/uL RBC 5.44 (4.18-5.48) 10^6 /uL Hgb 15.7 (14.0-18.0) g/dL Hct 46 (42-52) % MCV 84 (80-94) fL MCH 29 (27-31) pg MCHC 35 (31-36) g/dL RDW 14 (10-15) % Plt Count 319 (150-450) 10^3/uL MPV 7.3 L (7.4-10.4) fL Neut % (Auto) 65.8 % Lymph % (Auto) 19.3 % [place] % (Auto) 9.5 % Eos % (Auto) 4.0 % Baso % (Auto) 1.4 % Absolute Neuts (auto) 6.3 (1.5-7.7) 10^3/ul Absolute Lymphs (auto) 1.9 (1.0-4.8) 10^3/ul Absolute Monos (auto) 0.9 H (0-0.8) 10^3/ul Absolute Eos (auto) 0.4 (0-0.6) 10^3/ul Absolute Basos (auto) 0.1 (0-0.2) 10^3/ul Absolute Nucleated RBC 0.0 10^3/ul Nucleated RBC % 0.0 INR (Anticoag Therapy) 1.06 (0.82-1.09) Result Diagrams: 04/06/19 15:30 04/06/19 15:30 Lab Statement: Any lab studies that have been ordered have been reviewed, and results considered in the medical decision making process. - Radiology Chest XR Radiology Interpretation Completed By: ED Physician Summary of Radiographic Findings: No acute pathology. - EKG 15:15 Cardiac Rate: NL - at 81 bpm EKG Rhythm: Sinus Rhythm Summary of EKG Findings: EKG at 1515 shows sinus rhythm at a rate of [address] elevations. ED physician has reviewed and interpreted this EKG. 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 Pt reports he was sitting in the car driving home when he suddenly felt three "thuds" on his left side of chest described as a dull ache. He notes he grabbed his chest and felt SOB, "it took the breath out of me." Pt states this chest pain lasted 20 seconds and then resolved. However he reports every since he has been feeling his chest heavy and nauseous. Upon patient getting out of the car he felt dizzy and left arm tingling. Pt states he has had panic attacks in the past with chest pain, but notes "nothing like this.". PMHx includes HTN, high cholesterol , depression, anxiety, COPD. Pt reports last stress test was in 2017. FHx of cardiac disease, mother and brother with [place]. Blood work without a significant abnormality except for potassium of 3.3. Patient was given potassium chloride. First troponin 0.01. Second troponin was also 0.01. EKG shows a normal sinus rhythm without ST elevations. Patient reports that all symptoms have resolved. Patient's HEART score is: 2 therefore, low suspicion for CAD. Patient is not hypoxic or tachycardic. Wells criteria 0 , therefore, no suspicion for PE. Patient has no abdominal bruit thus no suspicion for AAA. Patients pain does not radiate to the back and pain has resolved thus low suspicion for aortic dissection. I discussed all the findings and test results with the patient. Patient was instructed to return to the emergency room immediately if any of the symptoms return or worsen. Patient understands and agrees. Plan of care was discussed with the patient and patient understands and agrees. All questions were answered at patient satisfaction. There were no further complaints or concerns. PE before discharge: CVS: S1 and S2 present. No murmurs appreciated. Abdominal exam before discharge: Soft, non-tender. No signs of distention. No rebound no guarding, and no masses palpated. Bowel sounds are normal. Patient is alert and oriented x 3. Patient is hemodynamically stable. - Chest Pain Differential Diagnosis/HQI/PQRI: Acute [place], ACS, Angina, CHF, Chest Wall, GI Disease, Lower Respiratory Infection - Diagnoses Provider Diagnoses: Atypical chest pain Discharge ED - Sign-Out/Discharge Documenting (check all that apply): Patient Departure - Discharge home - Discharge Plan Condition: Stable Disposition: HOME Patient Education Materials: Chest Pain (ED) Referrals: Cely Abebe PA [Primary Care Provider] - Additional Instructions: FOLLOW UP WITH YOUR PRIMARY CARE PROVIDER IN 2-3 DAYS. RETURN TO THE ED FOR ANY NEW OR WORSENING SYMPTOMS. - Billing Disposition and Condition Condition: STABLE Disposition: Home - Attestation Statements Document Initiated by Scribe: Yes Documenting Scribe: Santa Rolle Provider For Whom Scribe is Documenting (Include Credential): Alf Ely MD Scribe Attestation: Santa Armas, scribed for Alf Ely MD on 04/06/19 at 2141. Scribe Documentation Reviewed: Yes Provider Attestation: The documentation as recorded by the scribe, Santa Rolel accurately reflects the service I personally performed and the decisions made by me, Alf Ely MD Status of Scribe Document: Viewed
[2019-04-06 20:07] VITALS: BP 116/71
== END 2019-04-06 20:00 | disposition home or self-care (01) ==
LOC: ED 15:12
DX: R07.89 Other chest pain (principal); I10 Essential (primary) hypertension; E78.00 Pure hypercholesterolemia, unspecified; F32.9 Major depressive disorder, single episode, unspecified; F41.9 Anxiety disorder, unspecified; J44.9 Chronic obstructive pulmonary disease, unspecified; F17.210 Nicotine dependence, cigarettes, uncomplicated; Z90.89 Acquired absence of other organs; Z79.899 Other long term (current) drug therapy
CPT/HCPCS: 36415; 71045; 80053; 84484; 85025; 85610; 93005; 99284; A9270-GY

== ENCOUNTER 2019-05-22 13:36 | Emergency (ER) | payer OTHER ==
--- OUTSIDE RECORDS SUMMARY | 2019-05-22 14:35 | XMS REPORT ---
:1965 Author Organization [facility] Care Team Providers Name Role Phone Vanda Hooker Primary Care Physician Unavailable Allergies, Adverse Reactions, Alerts Allergy Code CodeSystem Reaction Severity Criticality Status Start Substance Date Moderate Medications Medication Medication Medication Start Stop Route Dose Status Fill Code CodeSystem Date Date Instructions RxNorm Problems Problem Name Code CodeSystem Alternate Alternate Start End Status Narrative Code CodeSystem Date Date Tobacco use 80736142 SNOMED-CT Active - Alcohol abuse, 78995205 SNOMED-CT Active uncomplicated - Post-traumatic 52703392 SNOMED-CT Active stress 08-05 disorder, unspecified Depressive 29772939 SNOMED-CT Active episode, - unspecified Generalized 07448998 SNOMED-CT Active anxiety 08-05 disorder Relevant diagnostic tests/laboratory data Narrative No Information Procedures Procedure Code CodeSystem Target Date of Status Service Device Device Device Name Site Procedure Delivery Code Name UID Location Psychother [id number] SNOMED-CT () 2018-06-16 completed Mental apy, 45 4 Health- minutes Edson with [facility] patient [address] [place] [address], [id number] [id number] Psychother [id number] SNOMED-CT () 2019-04-07 completed Mental apy, 45 4 Health- minutes [place] with [facility] patient [address] [place] [address], [id number] [phone] Psychother [id number] SNOMED-CT () 2018-07-07 completed Mental apy, 45 4 Health- minutes Hockley with [facility] patient [address] [place] [address], [id number] [phone] Psychother [id number] SNOMED-CT () 2018-11-12 completed Mental apy, 45 4 Health- minutes [place]ley with [facility] patient [address] [place] [address], [id number] [phone] Psychother [id number] SNOMED-CT () 2018-10-14 completed Mental apy, 45 4 Health- minutes Edson with [facility] patient [address] [place] [address], [id number] [phone] Psychother [id number] SNOMED-CT () 2018-10-28 completed Mental apy, 45 4 Health- minutes Edson with [facility] patient [address] [place] [address], [id number] [phone] SNOMED-CT () 2018-08-04 completed Mental Health- Edson [address], [id number] [phone] Psychother [id number] SNOMED-CT () 2018-06-24 completed Mental apy, 45 4 Health- minutes Hockley with [address], [id number] [phone] Psychother [id number] SNOMED-CT () 2018-11-26 completed Mental apy, 45 4 Health- minutes Hockley with [address], [id number] [phone] SNOMED-CT () 2018-12-04 completed Mental Health- Edson [address], [id number] [id number] SNOMED-CT () 2018-08-18 completed Mental Health- Edson [address], [id number] [phone] Psychother [id number] SNOMED-CT () 2018-07-21 completed Mental apy, 45 4 Health- minutes Hockley with [address], [id number] [phone] SNOMED-CT () 2018-09-30 completed Mental Health- [place]ley [address], [id number] [id number] Psychother [id number] SNOMED-CT () 2019-04-22 completed Mental apy, 45 4 Health- minutes Hockley with [facility] patient [address] [place] [address], [id number] [phone] Encounters/Encounter Diagnoses Encounter Name Encounter Diagnosis Diagnosis Diagnosis Date of Service Code Code Name CodeSystem Diagnosis Delivery Location [facility] - [id number] Post-traumati SNOMED-CT 2019-04-22 Behavioral Individual 30 c stress Health min disorder, [facility] unspecified [place], [place], [phone] Vital Signs No Information Social History Element Description Description Start End Code CodeSystem AdditionalInfo Date Date SexAssignedAtBirth Male 1965-0 M AdministrativeGender 08-16 Hospital Discharge Instructions Reason For Referral Medical Equipment FDA Assessments
--- OUTSIDE RECORDS SUMMARY | 2019-05-22 14:35 | XMS REPORT ---
:1965 Author Organization [facility] Care Team Providers Name Role Phone Vanda Hooker Primary Care Physician Unavailable Allergies, Adverse Reactions, Alerts Allergy Code CodeSystem Reaction Severity Criticality Status Start Substance Date Moderate Medications Medication Medication Medication Start Stop Route Dose Status Fill Code CodeSystem Date Date Instructions RxNorm Problems Problem Name Code CodeSystem Alternate Alternate Start End Status Narrative Code CodeSystem Date Date Alcohol abuse, [id number] SNOMED-CT Active uncomplicated - Post-traumatic [id number] SNOMED-CT Active stress - disorder, unspecified 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 anxiety - disorder Depressive 45723243 SNOMED-CT Active episode, - unspecified Tobacco use 20649036 SNOMED-CT Active -22 Relevant diagnostic tests/laboratory data Narrative No Information Procedures Procedure Code CodeSystem Target Date of Status Service Device Device Device Name Site Procedure Delivery Code Name UID Location Psychother [id number] SNOMED-CT () 2018-10-14 completed Mental apy, 45 4 Health- minutes Edson with [facility] patient [address] [place] [address], [id number] [phone] Psychother [id number] SNOMED-CT () 2018-10-28 completed Mental apy, 45 4 Health- minutes Mcpherson with [facility] patient [address] [place] [address], [id number] [phone] Psychother [id number] SNOMED-CT () 2018-11-26 completed Mental apy, 45 4 Health- minutes Mcpherson with [facility] patient [address] [place] [address], [id number] [phone] Psychother [id number] SNOMED-CT () 2018-11-12 completed Mental apy, 45 4 Health- minutes Edson with [facility] patient [address] [place] [address], [id number] [phone] Psychother [id number] SNOMED-CT () 2018-06-16 completed Mental apy, 45 4 Health- minutes Mcpherson with [facility] patient [address] [place] [address], [id number] [phone] Psychother [id number] SNOMED-CT () 2018-06-24 completed Mental apy, 45 4 Health- minutes Edson with [facility] patient [address] [place] [address], [id number] [phone] Psychother [id number] SNOMED-CT () 2018-07-07 completed Mental apy, 45 4 Health- minutes Mcpherson with [facility] patient [address] [place] [address], [id number] [phone] Psychother [id number] SNOMED-CT () 2018-07-21 completed Mental apy, 45 4 Health- minutes Mcpherson with [facility] patient [address] [place] [address], [id number] [phone] Psychother [id number] SNOMED-CT () 2019-04-07 completed Mental apy, 45 4 Health- minutes Mcpherson with [facility] patient [address] [place] [address], [phone] [phone] SNOMED-CT () 2018-08-04 completed Mental Health- [address], [id number] [phone] SNOMED-CT () 2018-09-30 completed Mental Health- [address], [phone] SNOMED-CT () 2018-08-18 completed Mental Health- [address], [id number] [phone] SNOMED-CT () 2018-12-04 completed Mental Health- [address], [phone] [phone] Encounters/Encounter Diagnoses Encounter Name Encounter Diagnosis Diagnosis Diagnosis Date of Service Code Code Name CodeSystem Diagnosis Delivery Location [facility] - [id number] Post-traumati SNOMED-CT 2019-04-07 Behavioral Individual 30 c stress Health min disorder, [facility] [address] [place], [place], [id number] Vital Signs No Information Social History Element Description Description Start End Code CodeSystem AdditionalInfo Date Date SexAssignedAtBirth Male 1966-0 M AdministrativeGender 08-16 Hospital Discharge Instructions Reason For Referral Medical Equipment FDA Assessments
[2019-05-22 15:17] VITALS: BP 113/74
--- NOTE | 2019-05-22 15:31 | UC ---
Lower Extremity/Ankle HPI - HPI Summary HPI Summary: left 3rd toe pulled nail off 3 days ago now has swelling purulent drainage, tenderness - History of Current Complaint Chief Complaint: UCLowerExtremity Stated Complaint: FOOT COMPLAINT Time Seen by Provider: 05/22/19 15:10 Hx Obtained From: Patient Onset/Duration: Sudden Onset, Lasting Days - 3 Pain Intensity: 7 Pain Scale Used: 0-10 Numeric Aggravating Factor(s): Standing, Ambulation Alleviating Factor(s): Rest, Elevation Able to Bear Weight: Yes - Allergies/Home Medications Allergies/Adverse Reactions: Allergies Allergy/AdvReac Type Severity Reaction Status Date / Time bee venom protein (honey bee) Allergy Anaphylatic Verified 04/06/19 15:27 Shock shellfish derived Allergy Nausea And Verified 04/06/19 15:27 Vomiting statins Allergy GI Upset Uncoded 05/22/19 15:18 Home Medications: Home Medications amLODIPine TAB* [Norvasc 5 mg TAB*] 10 mg PO DAILY 07/10/17 [History Confirmed 05/22/19] Evolocumab [Repatha Syringe] 140 mg SUBCUT Q14D 10/31/17 [History Confirmed 10/03] Benzonatate CAP* [Tessalon 100 MG CAP*] 100 mg PO TID PRN 03/12/18 [History Confirmed 05/22/19] Venlafaxine EXT RELEASE CAP* [Effexor Xr CAP*] 225 mg PO DAILY 03/12/18 [ History Confirmed 05/22/19] BuPROPion XL* [Bupropion XL*] 300 mg PO DAILY 04/06/19 [History Confirmed ] Fluticasone NASAL SPRAY 50MCG* [Flonase NASAL SPRAY 50MCG*] 1 spray BOTH NARES BID 04/06/19 [History Confirmed 05/22/19] Naltrexone TAB* 50 mg PO BEDTIME 04/06/19 [History Confirmed 05/22/19] busPIRone TAB* [Buspar TAB *] 7.5 mg PO BID 04/06/19 [History Confirmed 05/22/19 ] hydrOXYzine HCL TAB* [Atarax TAB 50 MG *] 50 mg PO TID PRN 04/06/19 [History Confirmed 05/22/19] Amoxicillin/Clavulanate TAB* [Augmentin TAB 875*] 875 mg PO BID #20 tab [Rx] PMH/Surg Hx/FS Hx/Imm Hx Previously Healthy: No Cardiovascular History: Hypertension Psychological History: Anxiety, Other Other Psychological History: Alcohol dependence in early recovery on MAT - Surgical History Surgical History: Yes Surgery Procedure, Year, and Place: APPENDECTOMY. surgery to right foot/ankle - Family History Known Family History: Positive: Cardiac Disease - Mother and brother with HI, Hypertension Negative: Diabetes Family History: Father with stroke - Social History Occupation: Disabled Lives: With Family Alcohol Use: None Substance Use Type: None Smoking Status (MU): Former Smoker Type: Cigarettes Amount Used/How Often: 1ppd Have You Smoked in the Last Year: Yes Household Exposure Type: Cigarettes - Immunization History Most Recent Influenza Vaccination: 01/01 Most Recent Tetanus Shot: unknown Most Recent Pneumonia Vaccination: unknown Review of Systems All Other Systems Reviewed And Are Negative: Yes Constitutional: Positive: Negative Skin: Positive: Negative Eyes: Positive: Negative ENT: Positive: Negative Respiratory: Positive: Negative Cardiovascular: Positive: Negative Gastrointestinal: Positive: Negative Genitourinary: Positive: Negative Motor: Positive: Negative Neurovascular: Positive: Negative Musculoskeletal: Positive: Arthralgia - left 3rd toe Neurological/Mental Status: Positive: Negative Psychological: Positive: Negative Is Patient Immunocompromised?: No Physical Exam Triage Information Reviewed: Yes Appearance: Well-Appearing, No Pain Distress, Well-Nourished Vital Signs: Initial Vital Signs Temp 97.7 F 05/22/19 15:15 Pulse 87 05/22/19 15:15 Resp 12 05/22/19 15:15 BP 113/74 05/22/19 15:15 Pulse Ox 99 05/22/19 15:15 Vital Signs Reviewed: Yes Eye Exam: Normal Eyes: Positive: Conjunctiva Clear ENT Exam: Normal ENT: Positive: Normal ENT inspection, Hearing grossly normal. Negative: Trismus , Muffled voice, Hoarse voice Neck exam: Normal Neck: Positive: Supple, Nontender Respiratory Exam: Normal Respiratory: Positive: Chest non-tender, No respiratory distress, No accessory muscle use Cardiovascular Exam: Normal Cardiovascular: Positive: RRR, Pulses Normal, Brisk Capillary Refill Musculoskeletal Exam: Other Musculoskeletal: Positive: Strength Intact, ROM Intact, Edema @ - left 3rd toe Neurological Exam: Normal Neurological: Positive: Alert, Muscle Tone Normal Psychological Exam: Normal Skin Exam: Other Skin: Positive: Other - left 3rd toe nail avulsed with purulent drainage Lower Extremity Course/Dx - Course Course Of Treatment: wound culture obtained---supplies given for bid warm soaks and wash, bulky dressing and post op shoe Augmentin bid follow with pcp this week will call if we need to change antibiotics to ED if symptoms worsen-- - Differential Dx/Diagnosis Provider Diagnosis: Blister of third toe, left, infected Discharge ED - Sign-Out/Discharge Documenting (check all that apply): Patient Departure All imaging exams completed and their final reports reviewed: No Studies - Discharge Plan Condition: Stable Disposition: HOME Prescriptions: Amoxicillin/Clavulanate TAB* [Augmentin TAB 875*] 875 mg PO BID #20 tab Patient Education Materials: Wound Infection (ED), Warm Compress or Soak (ED) Referrals: Cely Abebe PA [Primary Care Provider] - 3 Days - Billing Disposition and Condition Condition: STABLE Disposition: Home
== END 2019-05-22 15:58 | disposition home or self-care (01) ==
LOC: UCEAST 13:36
DX: S90.425A Blister (nonthermal), left lesser toe(s), initial encounter (principal); L03.032 Cellulitis of left toe; I10 Essential (primary) hypertension; F41.9 Anxiety disorder, unspecified; Z91.030 Bee allergy status; Z91.013 Allergy to seafood; Z88.8 Allergy status to other drugs, medicaments and biological substances; Z87.891 Personal history of nicotine dependence; X58.XXXA Exposure to other specified factors, initial encounter; Y92.9 Unspecified place or not applicable
CPT/HCPCS: 87070; 87077; 87184; 87186; 87205; 87640; 87641; 99213; G0463